=== PATIENT | female | born 1950 | race Caucasian/White ===

== ENCOUNTER 2017-07-04 14:22 | Inpatient (IN) | payer MEDICARE ==
[~2017-07-04] VITALS: Ht 157.5 cm; Wt 97.6 kg
[~2017-07-04 14:22] MED LIST: ALPR1TAB7 PO; AMLO5TAB4 PO; CETI10TA86 PO; CLON0.2T PO; CYCL10TA7 PO; DULO60CA44 PO; GLIM4TAB3 PO; HYDR25TA PO; INSU100I3 SQ; INSU100V12 SQ; LABE100T5 PO; TRAM50TA4 PO
[2017-07-04 15:20] LABS: EOSINOPHILS % (AUTO) 1.4 % (0.0-8.0); MEAN CORPUSCULAR HEMOGLOBIN 31.8 pg (27.0-33.0); MEAN CORPUSCULAR HGB CONC 35.4 g/dL (32.0-36.0); MEAN CORPUSCULAR VOLUME 89.7 fL (79-99); MONOCYTES % (AUTO) 4.5 % (3.0-13.0); NEUTROPHILS % (AUTO) 76.1 % (40.0-77.0); PLATELET COUNT (AUTO) 226 K/uL (130-400); RED BLOOD CELL COUNT(AUTO) 5.12 MIL/uL (4.00-5.50); RED CELL DISTRIBUTION WIDTH 13.7 % (11.0-15.5); WHITE BLOOD COUNT (AUTO) 9.2 K/uL (4.8-10.8)
[2017-07-04 15:26] LABS: CREATININE 0.6 mg/dL (0.5-1.5); POTASSIUM 3.7 mmol/L (3.5-5.1)
[2017-07-04 15:29] LABS: INR 0.94 (0.85-1.15); PARTIAL THROMBOPLASTIN TIME 28.6 SEC (26.3-35.5); PROTHROMBIN TIME 9.9 SEC (9.6-11.6)
[2017-07-04 15:31] LABS: ALBUMIN 3.6 g/dL (3.5-5.0); BILIRUBIN,TOTAL 0.4 mg/dL (0.2-1.0); TOTAL PROTEIN, SERUM 8.1 g/dL (6.0-8.3)
[2017-07-04 15:41] LABS: BILIRUBIN,URINE Negative (NEGATIVE); COLOR,URINE Yellow (YELLOW); GLUCOSE, URINE (UA) 500 mg/dL (NEGATIVE); KETONES,URINE Negative (NEGATIVE); LEUKOCYTE ESTERASE ,URINE Negative (NEGATIVE); NITRATE,URINE Negative (NEGATIVE); OCCULT BLOOD,URINE Trace (NEGATIVE); PROTEIN,URINE 300 (NEGATIVE); UROBILINOGEN,URINE 0.2 mg/dL (0.2-1.0)
[2017-07-04 15:42] LABS: APPEARANCE,URINE HAZY (CLEAR)
[2017-07-04 16:05] LABS: BACTERIA,URINE Few /HPF (None Seen); RBC,URINE None Seen /HPF (0-1)
[2017-07-04] MEDS ORDERED: SODIUM CHLORIDE 0.9% 1000ML 1,000 ML IV ONE (16:08)
[2017-07-04] MEDS ORDERED: ONDANSETRON HCL 4 MG/2 ML VIAL ONE ×2 (18:15→22:37)
[2017-07-04] MEDS ORDERED: TRAMADOL HCL 50 MG TABLET ONE (18:16)
[2017-07-04] MEDS ORDERED: LORAZEPAM 1 MG TABLET ONE (18:18)
[2017-07-04] MEDS ORDERED: ASPIRIN 325 MG TABLET ONE (19:31)
[2017-07-04] MEDS ORDERED: NITROGLYCERIN 1GM/1 INCH PACKET TD ONE (19:31)
[2017-07-04 20:17] LABS: CREATINE KINASE MB 3.1 ng/mL (0.5-3.6)
[2017-07-04] MEDS ORDERED: IPRATROPIUM/ALBUTEROL SULFATE 3 ML SOLUTION IH ONE (21:58)
[2017-07-04] MEDS ORDERED: ACETAMINOPHEN 325 MG TAB ONE (22:52)
[2017-07-04] MEDS ORDERED: IOPAMIDOL-370 100 ML VIAL IV ONE (23:07)
[2017-07-04] MEDS ORDERED: IOPAMIDOL-370 75 ML VIAL IV ONE (23:21)
[2017-07-05] VITALS (7 sets, daily range): BP systolic 138–193; BP diastolic 75–97
[2017-07-05] MEDS ORDERED: LACTULOSE 20 GM/30 ML UDCUP PO PRN (00:30)
[2017-07-05] MEDS ORDERED: NITROGLYCERIN 0.4 MG SL TAB SL PRN (00:30)
[2017-07-05] MEDS ORDERED: GUAIFENESIN-DM 200/20 MG 10 ML PO PRN (00:30)
[2017-07-05] MEDS ORDERED: ACETAMINOPHEN 325 MG TAB PO PRN ×2 (00:30)
[2017-07-05] MEDS ORDERED: LABE200T5 PO (01:08)
[2017-07-05] MEDS ORDERED: BACL10TA PO (01:08)
[2017-07-05] MEDS ORDERED: ADV250 IH (01:08)
[2017-07-05] MEDS ORDERED: LEVO500T2 PO (01:08)
[2017-07-05] MEDS ORDERED: MOME17SP10 NS (01:08)
[2017-07-05] MEDS ORDERED: BENZ200C53 PO (01:08)
[2017-07-05] MEDS ORDERED: DICY10CA13 PO (01:08)
[2017-07-05] MEDS ORDERED: AZITHROMYCIN 500MG+NS 250ML IV SCH (02:00)
[2017-07-05] MEDS ORDERED: BENZONATATE 100 MG CAPSULE PO PRN (02:15)
[2017-07-05] MEDS ORDERED: INSULIN GLARGINE 100 UNITS/ML 10 ML VIAL SQ SCH (02:15)
[2017-07-05] MEDS ORDERED: CLONIDINE HCL 0.2 MG TABLET PO PRN (02:15)
[2017-07-05 02:21] LABS: CREATINE KINASE MB 5.5 ng/mL (0.5-3.6); TROPONIN I 0.29 ng/mL (0.00-0.06)
[2017-07-05] MEDS: METOPROLOL TARTRATE 25 MG TAB PO SCH ×2 (02:27→08:58)
[2017-07-05] MEDS: CEFTRIAXONE SODIUM 1 GM IVP SCH (02:27)
[2017-07-05] MEDS: METOCLOPRAMIDE 10 MG TABLET PO SCH ×3 (05:32→21:18)
[2017-07-05 06:24] LABS: MEAN CORPUSCULAR HEMOGLOBIN 30.7 pg (27.0-33.0); MEAN CORPUSCULAR HGB CONC 34.2 g/dL (32.0-36.0); MEAN CORPUSCULAR VOLUME 89.8 fL (79-99); PLATELET COUNT (AUTO) 289 K/uL (130-400); RED BLOOD CELL COUNT(AUTO) 5.23 MIL/uL (4.00-5.50); RED CELL DISTRIBUTION WIDTH 13.5 % (11.0-15.5); WHITE BLOOD COUNT (AUTO) 12.8 K/uL (4.8-10.8)
[2017-07-05 06:39] LABS: ALBUMIN 3.6 g/dL (3.5-5.0); BILIRUBIN,DIRECT 0.1 mg/dL (0.0-0.3); BILIRUBIN,TOTAL 0.5 mg/dL (0.2-1.0); CREATININE 0.8 mg/dL (0.5-1.5); POTASSIUM 3.6 mmol/L (3.5-5.1); TOTAL PROTEIN, SERUM 8.3 g/dL (6.0-8.3)
[2017-07-05] MEDS: IPRATROPIUM/ALBUTEROL SULFATE 3 ML SOLUTION IH SCH ×4 (06:42→23:40)
[2017-07-05] MEDS: LABETALOL HCL 200 MG TABLET PO SCH ×2 (08:57→20:58)
[2017-07-05] MEDS: LEVOFLOXACIN 500 MG TABLET PO SCH (08:57)
[2017-07-05] MEDS: GLIMEPIRIDE 2 MG TABLET PO SCH ×2 (08:57→20:59)
[2017-07-05] MEDS: ASPIRIN 325MG EC TAB 325 MG TABLET.DR PO SCH (08:58)
[2017-07-05] MEDS: TRAMADOL HCL 50 MG TABLET PO SCH ×3 (08:58→20:59)
[2017-07-05] MEDS: FAMOTIDINE 20MG TAB 20 MG TAB PO SCH ×2 (08:58→20:58)
[2017-07-05] MEDS: DICYCLOMINE HCL 20 MG TAB PO SCH ×2 (08:58→20:59)
[2017-07-05] MEDS: FLUTICASONE/VILANTEROL 1 EACH AER.POW.BA IH SCH ×2 (08:59→21:00)
[2017-07-05] MEDS: MOMETASONE FUROATE PUMP NS SCH ×2 (08:59→21:00)
[2017-07-05] MEDS: ONDANSETRON HCL MDV 20ML 2 MG/ML VIAL IVP PRN (12:00)
[2017-07-05] MEDS: INSULIN HUMULIN R 100 UNIT/ML 3ML SQ SCH ×2 (16:24→21:06)
[2017-07-05] MEDS: BACLOFEN 10 MG TABLET PO SCH (20:59)
[2017-07-05] MEDS: AMLODIPINE BESYLATE 5 MG TAB PO SCH (20:59)
[2017-07-06] MEDS: CEFTRIAXONE SODIUM 1 GM IVP SCH (01:07)
[2017-07-06] MEDS: ONDANSETRON HCL MDV 20ML 2 MG/ML VIAL IVP PRN ×5 (02:50→23:48)
[2017-07-06 03:16] VITALS: BP 162/75
[2017-07-06 05:24] LABS: HEMATOCRIT 45.7 % (36-48); MEAN CORPUSCULAR HEMOGLOBIN 31.2 pg (27.0-33.0); MEAN CORPUSCULAR HGB CONC 34.6 g/dL (32.0-36.0); MEAN CORPUSCULAR VOLUME 90.2 fL (79-99); PLATELET COUNT (AUTO) 257 K/uL (130-400); RED BLOOD CELL COUNT(AUTO) 5.06 MIL/uL (4.00-5.50); RED CELL DISTRIBUTION WIDTH 13.7 % (11.0-15.5); WHITE BLOOD COUNT (AUTO) 9.5 K/uL (4.8-10.8)
[2017-07-06 05:33] LABS: CREATININE 0.8 mg/dL (0.5-1.5)
[2017-07-06 05:49] LABS: B-TYPE NATRIURETIC PEPTIDE 90 pg/mL (0-100)
[2017-07-06] MEDS: METOCLOPRAMIDE 10 MG TABLET PO SCH (06:10)
[2017-07-06] MEDS: INSULIN HUMULIN R 100 UNIT/ML 3ML SQ SCH ×4 (06:15→23:53)
[2017-07-06] MEDS: IPRATROPIUM/ALBUTEROL SULFATE 3 ML SOLUTION IH SCH ×3 (06:33→18:50)
[2017-07-06 07:50] VITALS: BP 180/89
[2017-07-06] MEDS: LABETALOL HCL 200 MG TABLET PO SCH ×2 (07:50→21:43)
[2017-07-06] MEDS: FAMOTIDINE 20MG TAB 20 MG TAB PO SCH ×2 (07:50→23:47)
[2017-07-06] MEDS: ASPIRIN 325MG EC TAB 325 MG TABLET.DR PO SCH (07:50)
[2017-07-06] MEDS: DICYCLOMINE HCL 20 MG TAB PO SCH ×2 (07:50→21:43)
[2017-07-06] MEDS: LEVOFLOXACIN 500 MG TABLET PO SCH (07:50)
[2017-07-06] MEDS: GLIMEPIRIDE 2 MG TABLET PO SCH ×2 (07:51→21:00)
[2017-07-06] MEDS: TRAMADOL HCL 50 MG TABLET PO SCH ×3 (08:26→23:47)
[2017-07-06] MEDS: MOMETASONE FUROATE PUMP NS SCH ×2 (09:00→21:00)
[2017-07-06] MEDS: FLUTICASONE/VILANTEROL 1 EACH AER.POW.BA IH SCH ×2 (09:00→21:00)
[2017-07-06] MEDS ORDERED: PROMETHAZINE HCL 25 MG/ML 1ML AMPULE IM PRN (09:30)
[2017-07-06] MEDS ORDERED: DIATR MEGLU/DIATRIZOATE SODIUM 30 ML BOTTLE ONE (10:34)
[2017-07-06 11:14] VITALS: BP 159/83
[2017-07-06 16:15] VITALS: BP 180/84
[2017-07-06 19:00] VITALS: BP 170/95
[2017-07-06] MEDS: AMLODIPINE BESYLATE 5 MG TAB PO SCH (21:43)
[2017-07-06] MEDS: BACLOFEN 10 MG TABLET PO SCH (21:43)
[2017-07-06 23:00] VITALS: BP 144/65
[2017-07-07] MEDS: IPRATROPIUM/ALBUTEROL SULFATE 3 ML SOLUTION IH SCH ×3 (00:01→11:21)
[2017-07-07] MEDS: CEFTRIAXONE SODIUM 1 GM IVP SCH (00:43)
[2017-07-07 03:00] VITALS: BP 145/75
[2017-07-07] MEDS: INSULIN HUMULIN R 100 UNIT/ML 3ML SQ SCH ×2 (05:45→11:37)
[2017-07-07 07:00] VITALS: BP 144/81
[2017-07-07] MEDS ORDERED: ASPI-1197 PO (09:30)
[2017-07-07] MEDS: LEVOFLOXACIN 500 MG TABLET PO SCH (09:46)
[2017-07-07] MEDS: TRAMADOL HCL 50 MG TABLET PO SCH (09:47)
[2017-07-07] MEDS: ASPIRIN 325MG EC TAB 325 MG TABLET.DR PO SCH (09:47)
[2017-07-07] MEDS: GLIMEPIRIDE 2 MG TABLET PO SCH (09:47)
[2017-07-07] MEDS: FAMOTIDINE 20MG TAB 20 MG TAB PO SCH (09:47)
[2017-07-07] MEDS: DICYCLOMINE HCL 20 MG TAB PO SCH (09:47)
[2017-07-07] MEDS: LABETALOL HCL 200 MG TABLET PO SCH (09:47)
[2017-07-07 11:00] VITALS: BP 138/78
== END 2017-07-07 12:30 | disposition home or self-care (01) | DRG 74 ==
LOC: EDH 14:22 → OBSVTOIN 20:57 → EDHIP 20:57 → 2AH 22:19
PROVIDERS: ADMIT Family Medicine; ATTEND Family Medicine
DX: E11.43 Type 2 diabetes mellitus with diabetic autonomic (poly)neuropathy (principal); J84.10 Pulmonary fibrosis, unspecified; E11.65 Type 2 diabetes mellitus with hyperglycemia; J20.9 Acute bronchitis, unspecified; K31.84 Gastroparesis; E78.5 Hyperlipidemia, unspecified; I10 Essential (primary) hypertension; M19.90 Unspecified osteoarthritis, unspecified site; G89.29 Other chronic pain; F41.9 Anxiety disorder, unspecified; K80.20 Calculus of gallbladder without cholecystitis without obstruction; Z87.891 Personal history of nicotine dependence; Z86.73 Personal history of transient ischemic attack (TIA), and cerebral infarction without residual deficits; Z83.3 Family history of diabetes mellitus; Z82.49 Family history of ischemic heart disease and other diseases of the circulatory system
CPT/HCPCS: 36415; 71045; 71275; 74018; 74176; 76700; 80048; 80053; 80076; 81001; 82550; 82553; 82948; 83735; 83874; 83880; 84484; 85025; 85027; 85378; 85610; 85730; 87804; 93005; 93306; 94640; 94664; 97039; A4218; J0456; J0696; J1815; J2405; J2550; J7030; Q9963; Q9967

== ENCOUNTER 2018-12-06 22:54 | Inpatient (IN) | payer MEDICARE ==
[~2018-12-06] VITALS: Ht 157.5 cm; Wt 101.2 kg
[~2018-12-06 22:54] MED LIST changes: +ADV250 IH; -ALPR1TAB7 PO; +ASPI-1197 PO; +BACL10TA PO; +BENZ200C53 PO; -CETI10TA86 PO; -CYCL10TA7 PO; +DICY10CA13 PO; -DULO60CA44 PO; -GLIM4TAB3 PO; +GLIM4TAB5 PO; -HYDR25TA PO; -LABE100T5 PO; +LABE200T5 PO; +LEVO500T2 PO; +MOME17SP10 NS
[2018-12-06 23:24] LABS: BASOPHILS % (AUTO) 0.7 % (0.0-5.0); EOSINOPHILS % (AUTO) 1.7 % (0.0-8.0); HEMATOCRIT 45.8 % (36-48); MEAN CORPUSCULAR HEMOGLOBIN 32.8 pg (27.0-33.0); MEAN CORPUSCULAR HGB CONC 35.3 g/dL (32.0-36.0); MEAN CORPUSCULAR VOLUME 92.7 fL (79-99); MONOCYTES % (AUTO) 6.5 % (3.0-13.0); NEUTROPHILS % (AUTO) 74.1 % (40.0-77.0); PLATELET COUNT (AUTO) 180 K/uL (130-400); RED BLOOD CELL COUNT(AUTO) 4.94 MIL/uL (4.00-5.50); RED CELL DISTRIBUTION WIDTH 14.9 % (11.0-15.5)
[2018-12-06 23:31] LABS: POTASSIUM 3.5 mmol/L (3.5-5.1)
[2018-12-06 23:35] LABS: ALBUMIN 3.7 g/dL (3.5-5.0); BILIRUBIN,TOTAL 0.5 mg/dL (0.2-1.0); TOTAL PROTEIN, SERUM 7.8 g/dL (6.0-8.3)
[2018-12-07] VITALS (9 sets, daily range): BP systolic 122–182; BP diastolic 64–98
[2018-12-07] MEDS ORDERED: ENOXAPARIN SODIUM 100 MG/1 ML SQ ONE (00:37)
[2018-12-07] MEDS ORDERED: NITROGLYCERIN 0.4 MG SL TAB SL PRN (01:00)
[2018-12-07] MEDS ORDERED: ACETAMINOPHEN 325 MG TAB PO PRN ×2 (01:00)
[2018-12-07] MEDS ORDERED: LACTULOSE 20 GM/30 ML UDCUP PO PRN (01:00)
[2018-12-07 01:29] LABS: CHOLESTEROL 145 mg/dL (<200); HDL CHOLESTEROL 117 mg/dL (35-85); LDL DIRECT 73 mg/dL (0-99); TRIGLYCERIDES 91 mg/dL (30-200)
[2018-12-07] MEDS ORDERED: INSULIN HUMULIN R 100 UNIT/ML 3ML ONE (01:29)
[2018-12-07] MEDS ORDERED: ASPIRIN 325 MG TABLET ONE (01:57)
--- NOTE | 2018-12-07 02:10 | NUR ---
ADMIT PT ADMITTED TO ROOM 415, AAOX3, COMPLAINTS OF GENERALIZED PAINS. PT CLAIMS OF NERVE PAINS SINCE HAVING SHINGLES IN April,. ADMISSION CARE DONE. PLACED IN BED COMFORTABLY. TELE MONITOR APPLIED WITH NSR, HR=64. SCD'S APPLIED TO BLE. ADMISSION DATA BASE COMPLETED. SALINE LOCK FLUSHED, PATENT. MEDICATED WITH TYLENOL FOR PAINS. UPDATED HOME MEDICATION LIST. IN FOR MORE CARE AND MANAGEMENT. Addendum: 12/07/18 at 0307 by EMILIO GOMES RN RN Amended: Links added.
[2018-12-07] MEDS ORDERED: METO25TA6 PO (02:44)
[2018-12-07] MEDS ORDERED: TICA90TA PO (02:44)
[2018-12-07] MEDS ORDERED: LISI-613 PO (02:44)
[2018-12-07] MEDS ORDERED: AMLO5TAB9 PO (02:44)
[2018-12-07] MEDS ORDERED: [UNRECOGNIZED DRUG - CODE] PO (02:44)
[2018-12-07] MEDS ORDERED: FURO40TA5 PO (02:44)
[2018-12-07] MEDS ORDERED: CLON0.2T PO (02:44)
[2018-12-07] MEDS ORDERED: ATOR-2 PO (02:44)
[2018-12-07] MEDS: HYDRALAZINE HCL 20 MG/ML VIAL IV PRN ×2 (04:26→22:30)
--- NOTE | 2018-12-07 04:26 | NUR ---
BP PT'S BP STILL KFDEUMCT=063/71, HR=62. DENIES ANY DISCOMFORT AT THIS TIME. MEDICATED WITH HYDRALAZINE IV. KEPT RESTED AND COMFORTABLE. WILL RE-ASSESS PT.
[2018-12-07] MEDS: INSULIN HUMULIN R 100 UNIT/ML 3ML SQ SCH ×4 (06:08→20:22)
--- NOTE | 2018-12-07 06:08 | NUR ---
MEDS AWAKENED PT FOR DUE INSULIN DOSE, TOLERATED WELL. ENCOURAGED TO GO BACK TO SLEEP. FOR MORE CARE.
[2018-12-07] MEDS: FAMOTIDINE 20MG TAB 20 MG TAB PO SCH (07:56)
[2018-12-07] MEDS: ASPIRIN 81 MG EC TAB PO SCH (07:56)
[2018-12-07] MEDS: FUROSEMIDE 40 MG TABLET PO SCH (07:57)
[2018-12-07] MEDS: METOPROLOL TARTRATE 25 MG TAB PO SCH ×4 (07:57→20:22)
[2018-12-07] MEDS: ONDANSETRON HCL 4 MG/2 ML VIAL IV PRN (07:58)
[2018-12-07] MEDS: TICAGRELOR 90 MG TABLET PO SCH ×2 (07:58→18:39)
[2018-12-07] MEDS: INSULIN LISPRO 100 UNIT/ML 3ML SQ SCH ×3 (08:07→18:44)
[2018-12-07] MEDS: ENOXAPARIN SODIUM 40 MG/0.4 ML SYRINGE SQ SCH (08:08)
[2018-12-07] MEDS: MORPHINE SULFATE 2 MG/ML 1ML SYG IV PRN ×2 (08:11→20:16)
[2018-12-07] MEDS ORDERED: LISINOPRIL 20 MG TABLET PO SCH (09:00)
[2018-12-07] MEDS ORDERED: CLONIDINE HCL 0.2 MG TABLET PO SCH (09:00)
[2018-12-07] MEDS ORDERED: FLU VACC QS2019-20 36MOS UP/PF 60 MCG/0.5 ML ML IM ONE (09:00)
[2018-12-07] MEDS ORDERED: AMLODIPINE BESYLATE 5 MG TAB PO SCH (09:00)
[2018-12-07 11:04] LABS: ALBUMIN 3.5 g/dL (3.5-5.0); BILIRUBIN,TOTAL 0.6 mg/dL (0.2-1.0); CREATININE 0.9 mg/dL (0.5-1.5); POTASSIUM 3.4 mmol/L (3.5-5.1); TOTAL PROTEIN, SERUM 7.6 g/dL (6.0-8.3)
--- NOTE | 2018-12-07 14:37 | NUR ---
DCP CM met with pt discussed dc plans. Pt is independent prior to admission, lives at home w/daughter, son, and grandchildren. Pt has a rollator walker and cane. Denies any other equipments/services. Feels safe to go back home, children able to assist with transportation and needs as necessary. DC plan to home once stable. CM to cont to follow up. Addendum: 12/07/18 at 1438 by TED BOSCH LVN CM Amended: Links added.
[2018-12-07] MEDS: ATORVASTATIN CALCIUM 40 MG TABLET PO SCH (20:15)
[2018-12-07] MEDS: INSULIN GLARGINE 100 UNITS/ML 10 ML VIAL SQ SCH (20:22)
--- NOTE | 2018-12-07 20:22 | NUR ---
MEDS PT'S BP ELEVATED AT 182/70, HR=63. PT COMPLAINTS OF GENERALIZED PAINS. DUE MEDS ADMINISTERED, MORPHINE IV GIVEN FOR PAINS. KEPT RESTED AND COMFORTABLE IN BED. CALL LIGHT WITHIN REACH. WILL RE-ASSESS PT. Addendum: 12/07/18 at 2338 by EMILIO GOMES RN RN Amended: Links added.
[2018-12-07] MEDS ORDERED: ATORVASTATIN CALCIUM 20 MG TABLET PO SCH (21:00)
--- NOTE | 2018-12-07 22:30 | NUR ---
RE-CHECK PT'S BP RE-QCQFDHV=217/78, HR=68. MEDICATED WITH HYDRALAZINE IV. KEPT RESTED AND COMFORTABLE IN BED. WILL RE-ASSESS PT.
--- NOTE | 2018-12-08 01:15 | NUR ---
RECORDS OBTAINED OPERATIVE RECORDS RE[place] BY DR ARRIAZA [place] [facility]. PLACED IN CHART.
--- NOTE | 2018-12-08 02:00 | NUR ---
ROUNDS PT RESTING WELL, FAIRLY ASLEEP, NO DISTRESS NOTED. KEPT UNDISTURBED FOR NOW. WILL MONITOR PT.
[2018-12-08 03:15] VITALS: BP 140/69
--- NOTE | 2018-12-08 05:00 | NUR ---
DRAW PT WAS REFUSING FLOOR CASHIER TO DRAW BLOOD UNTIL VP OF MARKETING EXPLAINED THAT MD HAD ORDERED LABS FOR TODAY AND WILL NOT BE DRAWN IF PT REFUSES AND WILL SIGN REFUSAL FORM. PT AGREED FOR BLOOD DRAW AND FLOOR CASHIER IN TO DO SO.
[2018-12-08 05:36] LABS: BASOPHILS % (AUTO) 0.8 % (0.0-5.0); EOSINOPHILS % (AUTO) 0.8 % (0.0-8.0); HEMATOCRIT 49.4 % (36-48); LYMPHOCYTES % (AUTO) 17.9 % (21.0-51.0); MEAN CORPUSCULAR HEMOGLOBIN 32.4 pg (27.0-33.0); MEAN CORPUSCULAR HGB CONC 34.9 g/dL (32.0-36.0); MEAN CORPUSCULAR VOLUME 92.9 fL (79-99); MONOCYTES % (AUTO) 8.1 % (3.0-13.0); NEUTROPHILS % (AUTO) 72.4 % (40.0-77.0); PLATELET COUNT (AUTO) 227 K/uL (130-400); RED BLOOD CELL COUNT(AUTO) 5.31 MIL/uL (4.00-5.50); WHITE BLOOD COUNT (AUTO) 10.5 K/uL (4.8-10.8)
[2018-12-08 05:51] LABS: CREATININE 0.9 mg/dL (0.5-1.5); POTASSIUM 3.4 mmol/L (3.5-5.1)
--- NOTE | 2018-12-08 06:10 | NUR ---
[facility], IN TO SEE PT. NEW ORDERS GIVEN, PLEASE REFER TO CPOE.
[2018-12-08] MEDS: INSULIN HUMULIN R 100 UNIT/ML 3ML SQ SCH ×4 (06:33→20:55)
--- NOTE | 2018-12-08 06:36 | NUR ---
US SIZING MACHINE TENDER IN ROOM TO DO RENAL SONOGRAM.
[2018-12-08 08:00] VITALS: BP 168/94
[2018-12-08] MEDS ORDERED: LISINOPRIL 20 MG TABLET ONE (08:48)
[2018-12-08] MEDS: ASPIRIN 81 MG EC TAB PO SCH (08:54)
[2018-12-08] MEDS: ENOXAPARIN SODIUM 40 MG/0.4 ML SYRINGE SQ SCH (08:54)
[2018-12-08] MEDS: TICAGRELOR 90 MG TABLET PO SCH ×2 (08:55→18:04)
[2018-12-08] MEDS: AMLODIPINE BESYLATE 5 MG TAB PO SCH (08:55)
[2018-12-08] MEDS: FAMOTIDINE 20MG TAB 20 MG TAB PO SCH (08:55)
[2018-12-08] MEDS: FUROSEMIDE 40 MG TABLET PO SCH (08:55)
[2018-12-08] MEDS: LISINOPRIL 40 MG TABLET PO SCH (08:56)
[2018-12-08] MEDS: POTASSIUM CHLORIDE 20 MEQ ERTAB PO SCH (08:56)
[2018-12-08] MEDS: METOPROLOL TARTRATE 25 MG TAB PO SCH ×3 (08:56→20:53)
[2018-12-08] MEDS: MORPHINE SULFATE 2 MG/ML 1ML SYG IV PRN ×2 (08:57→13:23)
[2018-12-08] MEDS: INSULIN LISPRO 100 UNIT/ML 3ML SQ SCH ×3 (08:58→17:00)
[2018-12-08] MEDS: ONDANSETRON HCL 4 MG/2 ML VIAL IV PRN (11:06)
[2018-12-08] MEDS: HYDRALAZINE HCL 20 MG/ML VIAL IV PRN (11:06)
[2018-12-08 11:30] VITALS: BP 201/98
--- NOTE | 2018-12-08 14:50 | NUR ---
RD NOTIFICATION Dx: Elevated Troponin. Hx: HTN, DM, CVA, CAD, CHF, OBESITY. Diet: Heart Healthy. Po intake 75% and has good appetite as per pt and family. Pt currently experiencing emesis and nausea. Pt unable to have a BM X3 days now and stated she has a history of constipation. Pt says she loves sweets and is hard to avoid intake. RD encouraged pt to eat sweets in moderation and make small changes in her diet to gain better control of BG levels. RD provided DM and Heart Healthy diet and nutrition education. Pt and family asked questions, RD answered and family verbalized understanding. Education materials provided. RD recommends continue current diet, add 60gmCCD to diet order. RD provided DM and Heart Healthy diet and nutrition education. Materials provided. RD will follow up and monitor as needed. Kaley Duncan MS, RDN Addendum: 12/08/18 at [address] RD Amended: Links added.
--- NOTE | 2018-12-08 14:51 | NUR ---
DIET EDUCATION Pt says she loves sweets and is hard to avoid intake. NOEMÍ encouraged pt to eat sweets in moderation and make small changes in her diet to gain better control of BG levels. NOEMÍ provided DM and Heart Healthy diet and nutrition education. Pt and family asked questions, RD answered and family verbalized understanding. Education materials provided. Addendum: 12/08/18 at [address] RD Amended: Links added.
[2018-12-08 15:35] VITALS: BP 130/59
[2018-12-08 16:00] VITALS: BP 150/72
[2018-12-08 19:00] VITALS: BP 102/42
[2018-12-08] MEDS: ATORVASTATIN CALCIUM 40 MG TABLET PO SCH (20:53)
[2018-12-08] MEDS: INSULIN GLARGINE 100 UNITS/ML 10 ML VIAL SQ SCH (20:55)
--- NOTE | 2018-12-08 20:55 | NUR ---
MEDS SHIFT ASSESSMENT DONE, PLEASE REFER TO CHART. DUE MEDS ADMINISTERED, TOLERATED WELL. KEPT RESTED AND COMFORTABLE. CALL LIGHT WITHIN REACH. WILL MONITOR PT. Addendum: 12/08/18 at 2258 by EMILIO GOMES RN RN Amended: Links added.
[2018-12-09] VITALS: BP 146/61
--- NOTE | 2018-12-09 00:30 | NUR ---
MOVED PT COMPLAINTS OF ROOM BEING VERY HOT. TRIED TO LOWER DOWN AC BUT STILL WARM. MOVED PT TO ROOM 413. KEPT RESTED AND COMFORTABLE. CALL LIGHT WITHIN REACH. WILL MONITOR PT.
--- NOTE | 2018-12-09 01:34 | NUR ---
ROUNDS PT CLAIMS ROOM TEMPERATURE IS COOL AND THAT IS HOW SHE WANTS IT. DENIES ANY CONCERNS AT THIS TIME. ENCOURAGED TO GO BACK TO SLEEP. WILL CONTINUE TO MONITOR.
[2018-12-09 04:00] VITALS: BP 106/52
--- NOTE | 2018-12-09 05:35 | NUR ---
ROUNDS PT RESTING WELL, NO CONCERNS VERBALIZED. KEPT COMFORTABLE. FOR MORE CAFE.
[2018-12-09] MEDS: INSULIN HUMULIN R 100 UNIT/ML 3ML SQ SCH ×2 (06:33→11:30)
[2018-12-09 07:30] VITALS: BP 128/93
[2018-12-09] MEDS: INSULIN LISPRO 100 UNIT/ML 3ML SQ SCH (08:00)
[2018-12-09] MEDS: ENOXAPARIN SODIUM 40 MG/0.4 ML SYRINGE SQ SCH (09:00)
[2018-12-09] MEDS ORDERED: FLU VACC QS2019-20 36MOS UP/PF 60 MCG/0.5 ML ML IM ONE (11:00)
[2018-12-09] MEDS: LISINOPRIL 40 MG TABLET PO SCH (11:15)
[2018-12-09] MEDS: TICAGRELOR 90 MG TABLET PO SCH (11:15)
[2018-12-09] MEDS: FAMOTIDINE 20MG TAB 20 MG TAB PO SCH (11:15)
[2018-12-09] MEDS: ASPIRIN 81 MG EC TAB PO SCH (11:15)
[2018-12-09] MEDS: AMLODIPINE BESYLATE 5 MG TAB PO SCH (11:15)
[2018-12-09] MEDS: METOPROLOL TARTRATE 25 MG TAB PO SCH (11:16)
[2018-12-09] MEDS: FUROSEMIDE 40 MG TABLET PO SCH (11:16)
[2018-12-09] MEDS: POTASSIUM CHLORIDE 20 MEQ ERTAB PO SCH (11:18)
[2018-12-09] MEDS ORDERED: AMLO10TA7 PO (13:02)
[2018-12-09] MEDS ORDERED: POTA-79 PO (13:03)
[2018-12-09] MEDS ORDERED: LISI40TA4 PO (13:03)
== END 2018-12-09 13:15 | disposition home or self-care (01) | DRG 292 ==
LOC: EDH 22:54 → EDHIP 12-07 00:51 → OBSVTOIN 12-07 00:51 → 4CH 12-07 01:15
PROVIDERS: ADMIT Hospitalist; ATTEND Hospitalist
DX: I11.0 Hypertensive heart disease with heart failure (principal); Z68.41 Body mass index [BMI] 40.0-44.9, adult; I50.32 Chronic diastolic (congestive) heart failure; E11.9 Type 2 diabetes mellitus without complications; E66.9 Obesity, unspecified; E78.5 Hyperlipidemia, unspecified; I25.10 Atherosclerotic heart disease of native coronary artery without angina pectoris; N64.4 Mastodynia; Z80.3 Family history of malignant neoplasm of breast; Z80.6 Family history of leukemia; Z80.8 Family history of malignant neoplasm of other organs or systems; Z86.73 Personal history of transient ischemic attack (TIA), and cerebral infarction without residual deficits; Z91.19 Patient's noncompliance with other medical treatment and regimen; Z95.1 Presence of aortocoronary bypass graft; Z98.891 History of uterine scar from previous surgery; Z23 Encounter for immunization; F41.9 Anxiety disorder, unspecified; R07.9 Chest pain, unspecified
CPT/HCPCS: 36415; 71045; 76770; 80048; 80053; 80061; 82550; 82948; 83036; 83880; 84484; 85025; 93005; 93306; 93975; 99291; G0378; J0360; J1650; J1815; J2405; Q2035

== ENCOUNTER 2021-06-10 23:26 | Emergency (ER) | payer MEDICARE ==
[~2021-06-10] VITALS: Ht 157.5 cm; Wt 111.1 kg
[~2021-06-10 23:26] MED LIST changes: -ADV250 IH; +AMLO-258 PO; -AMLO5TAB4 PO; +ATOR-2 PO; -BACL10TA PO; -BENZ200C53 PO; -DICY10CA13 PO; +FURO40TA5 PO; -GLIM4TAB5 PO; -LABE200T5 PO; -LEVO500T2 PO; +LISI40TA9 PO; +METO25TA6 PO; -MOME17SP10 NS; +POTA-79 PO; +TICA90TA PO; -TRAM50TA4 PO; +[UNRECOGNIZED DRUG - CODE] PO
[2021-06-11 00:44] LABS: BASOPHILS % (AUTO) 0.4 % (0.0-5.0); EOSINOPHILS % (AUTO) 13.5 % (0.0-8.0); HEMATOCRIT 45.3 % (36-48); LYMPHOCYTES % (AUTO) 16.1 % (21.0-51.0); MEAN CORPUSCULAR HEMOGLOBIN 31.5 pg (27.0-33.0); MEAN CORPUSCULAR HGB CONC 34.4 g/dL (32.0-36.0); MEAN CORPUSCULAR VOLUME 91.5 fL (79-99); MONOCYTES % (AUTO) 5.2 % (3.0-13.0); PLATELET COUNT (AUTO) 175 K/uL (130-400); RED BLOOD CELL COUNT(AUTO) 4.95 MIL/uL (4.00-5.50); RED CELL DISTRIBUTION WIDTH 13.8 % (11.0-15.5); WHITE BLOOD COUNT (AUTO) 10.2 K/uL (4.8-10.8)
[2021-06-11 00:56] LABS: CREATININE 1.2 mg/dL (0.5-1.5)
[2021-06-11 01:01] LABS: ALBUMIN 3.3 g/dL (3.5-5.0); BILIRUBIN,TOTAL 0.4 mg/dL (0.2-1.0); TOTAL PROTEIN, SERUM 7.4 g/dL (6.0-8.3)
[2021-06-11 01:46] LABS: B-TYPE NATRIURETIC PEPTIDE 60 pg/mL (0-100)
[2021-06-11] MEDS ORDERED: PRED20TA3 PO (02:38)
[2021-06-11] MEDS ORDERED: BUME1TAB6 PO (02:38)
[2021-06-11] MEDS ORDERED: HYDR50SY PO (02:38)
[2021-06-11 03:00] VITALS: BP 136/62
[2021-06-11] MEDS ORDERED: SOLU-MEDROL 125MG VIAL IVP ONE (03:00)
[2021-06-11] MEDS ORDERED: HYDROXYZINE 25 MG TABLET PO ONE (03:00)
== END 2021-06-11 03:20 | disposition home or self-care (01) ==
LOC: EDH 23:26
DX: L53.9 Erythematous condition, unspecified (principal); T49.0X5A Adverse effect of local antifungal, anti-infective and anti-inflammatory drugs, initial encounter; I11.0 Hypertensive heart disease with heart failure; I50.9 Heart failure, unspecified; E11.9 Type 2 diabetes mellitus without complications; E78.00 Pure hypercholesterolemia, unspecified; Z79.82 Long term (current) use of aspirin; Z79.899 Other long term (current) drug therapy; Z79.4 Long term (current) use of insulin; Z79.84 Long term (current) use of oral hypoglycemic drugs; Z86.73 Personal history of transient ischemic attack (TIA), and cerebral infarction without residual deficits; Z98.890 Other specified postprocedural states; Y92.89 Other specified places as the place of occurrence of the external cause
CPT/HCPCS: 36415; 71045; 80053; 83880; 85025; 96374; 99284; J2930

== ENCOUNTER 2022-06-30 05:26 | Inpatient (IN) | payer MEDICARE ==
[~2022-06-30] VITALS: Ht 157.5 cm; Wt 129.3 kg
[~2022-06-30 05:26] MED LIST changes: -AMLO-258 PO; +APIX5TAB PO; -ASPI-1197 PO; +BUME1TAB7 PO; -CLON0.2T PO; +CLOP-31 PO; +DILT180C63 PO; -FURO40TA5 PO; +GABA-529 PO; +HYDR-3421 PO; -INSU100I3 SQ; -INSU100V12 SQ; +INSU3INS5 SQ; +LISI20TA24 PO; -LISI40TA9 PO; +LORA10TA7 PO; -METO25TA6 PO; +METO50 PO; +MYCO500T5 PO; +NITR0.4T50 SL; +PANT40TA54 PO; -POTA-79 PO; +PRED20TA3 PO; -TICA90TA PO; +TRAM50TA4 PO; +VITAD50000 PO; -[UNRECOGNIZED DRUG - CODE] PO
[2022-06-30 05:53] LABS: APPEARANCE,URINE CLEAR (CLEAR); BILIRUBIN,URINE NEGATIVE (NEGATIVE); COLOR,URINE LIGHT-YELLOW (YELLOW); GLUCOSE, URINE (UA) 150 mg/dL (NEGATIVE); KETONES,URINE NEGATIVE (NEGATIVE); LEUKOCYTE ESTERASE ,URINE 25 Leu/uL (NEGATIVE); NITRATE,URINE NEGATIVE (NEGATIVE); PROTEIN,URINE 100 mg/dL (NEGATIVE); UROBILINOGEN,URINE 6 mg/dL (0.2-1.0)
[2022-06-30 06:00] LABS: BASOPHILS % (AUTO) 0.7 % (0.0-5.0); EOSINOPHILS % (AUTO) 4.7 % (0.0-8.0); HEMATOCRIT 46.6 % (36-48); LYMPHOCYTES % (AUTO) 18.5 % (21.0-51.0); MEAN CORPUSCULAR HEMOGLOBIN 30.2 pg (27.0-33.0); MEAN CORPUSCULAR HGB CONC 32.2 g/dL (32.0-36.0); MEAN CORPUSCULAR VOLUME 93.8 fL (79-99); MONOCYTES % (AUTO) 7.8 % (3.0-13.0); PLATELET COUNT (AUTO) 197 K/uL (130-400); RED BLOOD CELL COUNT(AUTO) 4.97 MIL/uL (4.00-5.50); RED CELL DISTRIBUTION WIDTH 17.2 % (11.0-15.5); WHITE BLOOD COUNT (AUTO) 7.4 K/uL (4.8-10.8)
[2022-06-30] MEDS ORDERED: FUROSEMIDE 40MG VIAL IV ONE (06:00)
[2022-06-30 06:01] LABS: BACTERIA,URINE None Seen /HPF (None Seen); SQUAMOUS EPITHELIAL CELL,UR Rare /HPF (0-2)
[2022-06-30 06:33] LABS: B-TYPE NATRIURETIC PEPTIDE 454 pg/mL (0-100)
[2022-06-30 06:34] LABS: ALBUMIN 2.9 g/dL (3.5-5.0); CREATININE 0.9 mg/dL (0.5-1.5); TOTAL PROTEIN, SERUM 7.3 g/dL (6.0-8.3)
[2022-06-30] MEDS ORDERED: ATOR-2 PO (07:45)
[2022-06-30] MEDS ORDERED: GABA-529 PO (07:45)
[2022-06-30] MEDS ORDERED: HYDROXYZINE 25 MG TABLET PO PRN (08:00)
[2022-06-30] MEDS ORDERED: HYDRALAZINE 20MG/ML VIAL IV PRN (08:00)
[2022-06-30] MEDS ORDERED: NITROGLYCERIN 0.4 MG SL TAB SL PRN (08:00)
[2022-06-30] MEDS ORDERED: ONDANSETRON 4MG INJ IV PRN (08:00)
[2022-06-30] MEDS ORDERED: HEPARIN 5,000 UNIT VIAL SQ SCH (08:00)
[2022-06-30 08:25] LABS: INR 1.08 (0.85-1.15); PROTHROMBIN TIME 11.7 SEC (9.6-11.6)
[2022-06-30 08:27] LABS: PARTIAL THROMBOPLASTIN TIME 28.4 SEC (26.3-35.5)
[2022-06-30] MEDS ORDERED: ZOSYN 3.375GM+NS 50ML 50 ML IVPB SCH (08:30)
[2022-06-30] MEDS: METOPROLOL TARTRATE 50 MG TAB PO SCH ×2 (09:00→20:29)
[2022-06-30] MEDS: LISINOPRIL 20 MG TABLET PO SCH (09:00)
[2022-06-30] MEDS: TRAMADOL HCL 50 MG TABLET PO SCH ×2 (09:00→20:28)
[2022-06-30] MEDS ORDERED: VANCOMYCIN 1G/250ML KIT 250 ML IV SCH (09:00)
[2022-06-30] MEDS: DILTIAZEM 180MG SR CAP PO SCH (09:18)
[2022-06-30] MEDS: FUROSEMIDE 40MG VIAL IVP SCH ×2 (09:18→20:29)
[2022-06-30] MEDS: APIXABAN 5 MG TABLET PO SCH ×2 (09:18→20:31)
[2022-06-30] MEDS: LORATADINE 10 MG TABLET PO SCH (09:19)
[2022-06-30] MEDS: GABAPENTIN 100 MG CAPSULE PO SCH ×2 (09:19→20:28)
[2022-06-30] MEDS: INSULIN HUMULIN R 100 UNIT/ML 3ML SQ SCH ×3 (11:30→21:57)
[2022-06-30] MEDS: ZOSYN 3.375GM+NS 50ML 50 ML IVPB SCH ×2 (14:27→20:28)
[2022-06-30] MEDS: ATORVASTATIN 40 MG TABLET PO SCH (20:28)
[2022-06-30 22:15] VITALS: BP 105/59
[2022-06-30 23:49] VITALS: BP 105/59
[2022-07-01] MEDS: ZOSYN 3.375GM+NS 50ML 50 ML IVPB SCH ×3 (04:00→19:27)
[2022-07-01 04:23] VITALS: BP 106/66
[2022-07-01 04:45] LABS: HEMATOCRIT 44.4 % (36-48); MEAN CORPUSCULAR HEMOGLOBIN 30.4 pg (27.0-33.0); MEAN CORPUSCULAR HGB CONC 31.3 g/dL (32.0-36.0); MEAN CORPUSCULAR VOLUME 97.2 fL (79-99); RED BLOOD CELL COUNT(AUTO) 4.57 MIL/uL (4.00-5.50); RED CELL DISTRIBUTION WIDTH 16.9 % (11.0-15.5); WHITE BLOOD COUNT (AUTO) 7.9 K/uL (4.8-10.8)
[2022-07-01 04:51] LABS: ALBUMIN 2.9 g/dL (3.5-5.0); BILIRUBIN,DIRECT 0.2 mg/dL (0.0-0.3); CREATININE 1.2 mg/dL (0.5-1.5); POTASSIUM 3.6 mmol/L (3.5-5.1); TOTAL PROTEIN, SERUM 6.9 g/dL (6.0-8.3)
[2022-07-01] MEDS: INSULIN HUMULIN R 100 UNIT/ML 3ML SQ SCH ×4 (05:28→19:35)
[2022-07-01 08:00] VITALS: BP 113/67
[2022-07-01] MEDS: METOPROLOL TARTRATE 50 MG TAB PO SCH ×2 (08:10→19:27)
[2022-07-01] MEDS: APIXABAN 5 MG TABLET PO SCH ×2 (08:10→19:27)
[2022-07-01] MEDS: FUROSEMIDE 40MG VIAL IVP SCH ×2 (08:10→19:28)
[2022-07-01] MEDS: TRAMADOL HCL 50 MG TABLET PO SCH (08:11)
[2022-07-01] MEDS: LORATADINE 10 MG TABLET PO SCH (08:11)
[2022-07-01] MEDS: GABAPENTIN 100 MG CAPSULE PO SCH ×2 (08:11→19:27)
[2022-07-01] MEDS: DILTIAZEM 180MG SR CAP PO SCH (08:12)
[2022-07-01] MEDS: LISINOPRIL 20 MG TABLET PO SCH (09:00)
[2022-07-01 12:00] VITALS: BP 107/67
[2022-07-01] MEDS: TRAMADOL HCL 50 MG TABLET PO PRN (15:02)
[2022-07-01 16:00] VITALS: BP 106/64
[2022-07-01 19:00] VITALS: BP 103/60
[2022-07-01] MEDS: HONEY 1 APPL/ML TUBE TP SCH (19:26)
[2022-07-01] MEDS: ATORVASTATIN 40 MG TABLET PO SCH (19:27)
[2022-07-02] VITALS: BP 97/57
[2022-07-02 04:00] VITALS: BP 124/72
[2022-07-02 05:09] LABS: BASOPHILS % (AUTO) 0.4 % (0.0-5.0); EOSINOPHILS % (AUTO) 10.7 % (0.0-8.0); HEMATOCRIT 45.6 % (36-48); LYMPHOCYTES % (AUTO) 12.9 % (21.0-51.0); MEAN CORPUSCULAR HEMOGLOBIN 30.3 pg (27.0-33.0); MEAN CORPUSCULAR HGB CONC 31.4 g/dL (32.0-36.0); MEAN CORPUSCULAR VOLUME 96.6 fL (79-99); MONOCYTES % (AUTO) 6.2 % (3.0-13.0); NEUTROPHILS % (AUTO) 69.5 % (40.0-77.0); PLATELET COUNT (AUTO) 177 K/uL (130-400); RED BLOOD CELL COUNT(AUTO) 4.72 MIL/uL (4.00-5.50); RED CELL DISTRIBUTION WIDTH 16.5 % (11.0-15.5); WHITE BLOOD COUNT (AUTO) 6.8 K/uL (4.8-10.8)
[2022-07-02 05:17] LABS: ALBUMIN 2.9 g/dL (3.5-5.0); TOTAL PROTEIN, SERUM 7.1 g/dL (6.0-8.3)
[2022-07-02] MEDS: ZOSYN 3.375GM+NS 50ML 50 ML IVPB SCH ×3 (05:24→21:49)
[2022-07-02] MEDS: INSULIN HUMULIN R 100 UNIT/ML 3ML SQ SCH ×7 (05:55→21:00)
[2022-07-02 07:58] VITALS: BP 135/67
[2022-07-02] MEDS: PANTOPRAZOLE 40 MG/VIAL IVP SCH (09:10)
[2022-07-02] MEDS: DILTIAZEM 180MG SR CAP PO SCH (09:10)
[2022-07-02] MEDS: GABAPENTIN 100 MG CAPSULE PO SCH ×2 (09:10→21:47)
[2022-07-02] MEDS: METOPROLOL TARTRATE 50 MG TAB PO SCH (09:10)
[2022-07-02] MEDS: LORATADINE 10 MG TABLET PO SCH (09:10)
[2022-07-02] MEDS: LISINOPRIL 20 MG TABLET PO SCH (09:11)
[2022-07-02] MEDS: FUROSEMIDE 40MG VIAL IVP SCH ×2 (09:11→21:47)
[2022-07-02] MEDS: APIXABAN 5 MG TABLET PO SCH ×2 (09:11→21:47)
[2022-07-02] MEDS: TRAMADOL HCL 50 MG TABLET PO PRN (09:15)
[2022-07-02] MEDS: HONEY 1 APPL/ML TUBE TP SCH (09:41)
[2022-07-02 10:47] VITALS: BP 136/63
[2022-07-02] MEDS: ZYVOX 600 MG TAB PO SCH (16:00)
[2022-07-02 16:07] VITALS: BP 115/62
[2022-07-02 19:00] VITALS: BP 100/59
[2022-07-02] MEDS ORDERED: INSULIN GLARGINE 100 UNITS/ML 10 ML VIAL SQ SCH (21:00)
[2022-07-02] MEDS ORDERED: INSU3INS5 SQ (21:42)
[2022-07-02] MEDS: ATORVASTATIN 40 MG TABLET PO SCH (21:47)
[2022-07-03] VITALS (7 sets, daily range): BP systolic 96–155; BP diastolic 51–74
[2022-07-03] MEDS: METOPROLOL TARTRATE 50 MG TAB PO SCH ×3 (00:11→21:58)
[2022-07-03] MEDS: ZYVOX 600 MG TAB PO SCH ×2 (02:33→15:47)
[2022-07-03] MEDS: ZOSYN 3.375GM+NS 50ML 50 ML IVPB SCH ×3 (05:57→22:03)
[2022-07-03] MEDS: INSULIN HUMULIN R 100 UNIT/ML 3ML SQ SCH ×4 (06:17→11:30)
[2022-07-03 08:49] LABS: HEMATOCRIT 44.8 % (36-48); MEAN CORPUSCULAR HEMOGLOBIN 30.2 pg (27.0-33.0); MEAN CORPUSCULAR HGB CONC 30.8 g/dL (32.0-36.0); PLATELET COUNT (AUTO) 163 K/uL (130-400); RED BLOOD CELL COUNT(AUTO) 4.57 MIL/uL (4.00-5.50); RED CELL DISTRIBUTION WIDTH 16.4 % (11.0-15.5); WHITE BLOOD COUNT (AUTO) 6.3 K/uL (4.8-10.8)
[2022-07-03 09:00] LABS: POTASSIUM 3.8 mmol/L (3.5-5.1)
[2022-07-03] MEDS: PANTOPRAZOLE 40 MG/VIAL IVP SCH (09:16)
[2022-07-03] MEDS: APIXABAN 5 MG TABLET PO SCH ×2 (09:16→21:58)
[2022-07-03] MEDS: TRAMADOL HCL 50 MG TABLET PO PRN (09:18)
[2022-07-03] MEDS: DILTIAZEM 180MG SR CAP PO SCH (09:18)
[2022-07-03] MEDS: FUROSEMIDE 40 MG TABLET PO SCH (09:19)
[2022-07-03] MEDS: GABAPENTIN 100 MG CAPSULE PO SCH ×2 (09:19→21:58)
[2022-07-03] MEDS: LISINOPRIL 20 MG TABLET PO SCH (09:19)
[2022-07-03] MEDS: LORATADINE 10 MG TABLET PO SCH (09:19)
[2022-07-03 09:24] LABS: B-TYPE NATRIURETIC PEPTIDE 276 pg/mL (0-100)
[2022-07-03] MEDS: HONEY 1 APPL/ML TUBE TP SCH (12:25)
[2022-07-03 15:07] LABS: PHOSPHORUS 2.9 mg/dL (2.5-4.9); THYROID STIMULATING HORMONE 5.09 uIU/mL (0.36-3.74); URIC ACID 4.1 mg/dL (2.6-7.2)
[2022-07-03 19:11] LABS: PROTEIN,URINE RANDOM 46.4 mg/dL (0-11.9)
[2022-07-03] MEDS: ATORVASTATIN 40 MG TABLET PO SCH (21:59)
[2022-07-04] MEDS: ZYVOX 600 MG TAB PO SCH ×2 (02:51→14:59)
[2022-07-04] MEDS: TRAMADOL HCL 50 MG TABLET PO PRN (02:52)
[2022-07-04 03:06] VITALS: BP 113/64
[2022-07-04 04:03] LABS: BASOPHILS % (AUTO) 0.7 % (0.0-5.0); EOSINOPHILS % (AUTO) 8.9 % (0.0-8.0); HEMATOCRIT 43.9 % (36-48); LYMPHOCYTES % (AUTO) 14.6 % (21.0-51.0); MEAN CORPUSCULAR HEMOGLOBIN 30.1 pg (27.0-33.0); MEAN CORPUSCULAR HGB CONC 31.2 g/dL (32.0-36.0); MEAN CORPUSCULAR VOLUME 96.5 fL (79-99); MONOCYTES % (AUTO) 8.4 % (3.0-13.0); NEUTROPHILS % (AUTO) 67.1 % (40.0-77.0); PLATELET COUNT (AUTO) 171 K/uL (130-400); RED BLOOD CELL COUNT(AUTO) 4.55 MIL/uL (4.00-5.50); RED CELL DISTRIBUTION WIDTH 16.3 % (11.0-15.5); WHITE BLOOD COUNT (AUTO) 7.1 K/uL (4.8-10.8)
[2022-07-04 04:21] LABS: ALBUMIN 2.7 g/dL (3.5-5.0); CREATININE 0.8 mg/dL (0.5-1.5); CRP QUANTITATIVE 14.1 mg/L (0.00-9.0); MAGNESIUM 1.9 mg/dL (1.80-2.40); PHOSPHORUS 2.8 mg/dL (2.5-4.9); POTASSIUM 3.5 mmol/L (3.5-5.1); TOTAL PROTEIN, SERUM 6.9 g/dL (6.0-8.3)
[2022-07-04 04:36] LABS: B-TYPE NATRIURETIC PEPTIDE 412 pg/mL (0-100)
[2022-07-04] MEDS: ZOSYN 3.375GM+NS 50ML 50 ML IVPB SCH ×3 (04:40→20:44)
[2022-07-04 05:11] LABS: ERYTHROCYTE SEDIMENTATION RATE 28 MM/HR (0-30)
[2022-07-04] MEDS: MORPHINE 2 MG SYG IVP PRN (06:27)
[2022-07-04] MEDS ORDERED: KCL 20 MEQ ERTAB PO ONE (06:30)
[2022-07-04 08:00] VITALS: BP 114/62
[2022-07-04] MEDS: APIXABAN 5 MG TABLET PO SCH ×2 (09:39→20:44)
[2022-07-04] MEDS: DILTIAZEM 180MG SR CAP PO SCH (09:39)
[2022-07-04] MEDS: Vitamin B Complex/Vit C/Folic Acid PO SCH (09:39)
[2022-07-04] MEDS: GABAPENTIN 100 MG CAPSULE PO SCH ×2 (09:40→20:44)
[2022-07-04] MEDS: LISINOPRIL 20 MG TABLET PO SCH (09:40)
[2022-07-04] MEDS: PANTOPRAZOLE 40 MG/VIAL IVP SCH (09:40)
[2022-07-04] MEDS: FUROSEMIDE 40 MG TABLET PO SCH ×2 (09:40→16:41)
[2022-07-04] MEDS: METOPROLOL TARTRATE 50 MG TAB PO SCH ×2 (09:41→20:44)
[2022-07-04] MEDS: LORATADINE 10 MG TABLET PO SCH (09:42)
[2022-07-04] MEDS: HONEY 1 APPL/ML TUBE TP SCH (09:42)
[2022-07-04] MEDS: INSULIN HUMULIN 70/30 100 UNIT/ML 3ML SQ SCH ×3 (11:30→20:47)
[2022-07-04 12:00] VITALS: BP 111/71
[2022-07-04 16:00] VITALS: BP 117/63
[2022-07-04 19:02] VITALS: BP 109/60
[2022-07-04] MEDS: ATORVASTATIN 40 MG TABLET PO SCH (20:44)
[2022-07-04 23:11] VITALS: BP 106/50
[2022-07-05 03:35] VITALS: BP 110/51
[2022-07-05 04:26] LABS: HEMATOCRIT 44.7 % (36-48); MEAN CORPUSCULAR HEMOGLOBIN 30.4 pg (27.0-33.0); MEAN CORPUSCULAR HGB CONC 31.1 g/dL (32.0-36.0); MEAN CORPUSCULAR VOLUME 97.8 fL (79-99); PLATELET COUNT (AUTO) 167 K/uL (130-400); RED BLOOD CELL COUNT(AUTO) 4.57 MIL/uL (4.00-5.50); RED CELL DISTRIBUTION WIDTH 16.2 % (11.0-15.5); WHITE BLOOD COUNT (AUTO) 5.4 K/uL (4.8-10.8)
[2022-07-05] MEDS: ZYVOX 600 MG TAB PO SCH ×2 (04:30→15:42)
[2022-07-05] MEDS: ZOSYN 3.375GM+NS 50ML 50 ML IVPB SCH ×3 (04:30→22:22)
[2022-07-05 04:43] LABS: ALBUMIN 2.7 g/dL (3.5-5.0); MAGNESIUM 2.1 mg/dL (1.80-2.40); POTASSIUM 4.2 mmol/L (3.5-5.1); TOTAL PROTEIN, SERUM 6.8 g/dL (6.0-8.3)
[2022-07-05 05:57] LABS: BASOPHILS % (MANUAL) 1 % (0-2); EOSINOPHILS % (MANUAL) 9 % (1-6); LYMPHOCYTES % (MANUAL) 14 % (22-44); MONOCYTES % (MANUAL) 3 % (2-9); SEGMENTED NEUTROPHILS % 73 % (40-70)
[2022-07-05 05:58] LABS: MAN.DIFF COMMENT-IMPRESSION MANUAL DIFFERENTIAL; PLATELET MORPHOLOGY COMMENT ADEQUATE
[2022-07-05] MEDS: INSULIN HUMULIN 70/30 100 UNIT/ML 3ML SQ SCH ×3 (07:30→17:27)
[2022-07-05 07:35] VITALS: BP 125/62
[2022-07-05] MEDS: FUROSEMIDE 40 MG TABLET PO SCH ×2 (09:00→17:26)
[2022-07-05] MEDS: LORATADINE 10 MG TABLET PO SCH (10:34)
[2022-07-05] MEDS: SPIRONOLACTONE 25 MG TAB PO SCH (10:35)
[2022-07-05] MEDS: LISINOPRIL 20 MG TABLET PO SCH (10:35)
[2022-07-05] MEDS: DILTIAZEM 180MG SR CAP PO SCH (10:35)
[2022-07-05] MEDS: GABAPENTIN 100 MG CAPSULE PO SCH ×2 (10:36→21:44)
[2022-07-05] MEDS: Vitamin B Complex/Vit C/Folic Acid PO SCH (10:36)
[2022-07-05] MEDS: APIXABAN 5 MG TABLET PO SCH ×2 (10:36→21:45)
[2022-07-05] MEDS: PANTOPRAZOLE 40 MG/VIAL IVP SCH (10:38)
[2022-07-05] MEDS: METOPROLOL TARTRATE 50 MG TAB PO SCH ×2 (10:48→21:45)
[2022-07-05] MEDS: MORPHINE 2 MG SYG IVP PRN (10:48)
[2022-07-05 11:00] VITALS: BP 121/61
[2022-07-05] MEDS: HONEY 1 APPL/ML TUBE TP SCH (12:37)
[2022-07-05 15:05] VITALS: BP 103/49
[2022-07-05 20:00] VITALS: BP 133/73
[2022-07-05] MEDS: ATORVASTATIN 40 MG TABLET PO SCH (21:44)
[2022-07-05] MEDS: ACETAMINOPHEN 325 MG TAB PO PRN (21:49)
[2022-07-05 23:52] VITALS: BP 139/59
[2022-07-06 04:00] VITALS: BP 142/68
[2022-07-06 04:36] LABS: BASOPHILS % (AUTO) 0.4 % (0.0-5.0); EOSINOPHILS % (AUTO) 5.1 % (0.0-8.0); HEMATOCRIT 44.7 % (36-48); LYMPHOCYTES % (AUTO) 12.9 % (21.0-51.0); MEAN CORPUSCULAR HEMOGLOBIN 30.2 pg (27.0-33.0); MEAN CORPUSCULAR HGB CONC 31.8 g/dL (32.0-36.0); MEAN CORPUSCULAR VOLUME 95.1 fL (79-99); NEUTROPHILS % (AUTO) 74.2 % (40.0-77.0); PLATELET COUNT (AUTO) 182 K/uL (130-400); RED CELL DISTRIBUTION WIDTH 15.7 % (11.0-15.5)
[2022-07-06 04:42] LABS: ALBUMIN 2.9 g/dL (3.5-5.0); CREATININE 0.9 mg/dL (0.5-1.5); POTASSIUM 3.4 mmol/L (3.5-5.1); TOTAL PROTEIN, SERUM 7.3 g/dL (6.0-8.3)
[2022-07-06] MEDS: ZYVOX 600 MG TAB PO SCH ×2 (05:17→15:09)
[2022-07-06] MEDS: ZOSYN 3.375GM+NS 50ML 50 ML IVPB SCH ×3 (05:17→22:23)
[2022-07-06] MEDS: ACETAMINOPHEN 325 MG TAB PO PRN ×2 (05:21→19:53)
[2022-07-06] MEDS: INSULIN HUMULIN 70/30 100 UNIT/ML 3ML SQ SCH ×3 (07:24→18:06)
[2022-07-06 07:40] VITALS: BP 122/70
[2022-07-06] MEDS ORDERED: POTASSIUM CHLORIDE 10MEQ SR TAB PO ONE (09:15)
[2022-07-06] MEDS: PANTOPRAZOLE 40 MG/VIAL IVP SCH (09:28)
[2022-07-06] MEDS: Vitamin B Complex/Vit C/Folic Acid PO SCH (09:28)
[2022-07-06] MEDS: FUROSEMIDE 40 MG TABLET PO SCH ×2 (09:28→16:33)
[2022-07-06] MEDS: LISINOPRIL 20 MG TABLET PO SCH (09:29)
[2022-07-06] MEDS: SPIRONOLACTONE 25 MG TAB PO SCH (09:29)
[2022-07-06] MEDS: GABAPENTIN 100 MG CAPSULE PO SCH ×2 (09:29→19:53)
[2022-07-06] MEDS: DILTIAZEM 180MG SR CAP PO SCH (09:29)
[2022-07-06] MEDS: METOPROLOL TARTRATE 50 MG TAB PO SCH ×2 (09:29→19:53)
[2022-07-06] MEDS: APIXABAN 5 MG TABLET PO SCH ×2 (09:29→19:52)
[2022-07-06] MEDS: LORATADINE 10 MG TABLET PO SCH (09:29)
[2022-07-06] MEDS ORDERED: POTASSIUM CHLORIDE 20MEQ/100ML 100 ML IV PRN (09:30)
[2022-07-06] MEDS ORDERED: POTASSIUM CHLORIDE 10% ELIXIR 20 MEQ/15 ML UDCUP PO PRN (09:30)
[2022-07-06] MEDS ORDERED: MAGNESIUM 2GM PREMIX 50ML 50 ML IV PRN (09:30)
[2022-07-06] MEDS: HONEY 1 APPL/ML TUBE TP SCH (09:30)
[2022-07-06] MEDS ORDERED: FUROSEMIDE 40MG VIAL IV ONE (10:30)
[2022-07-06 11:35] VITALS: BP 119/60
[2022-07-06] MEDS: KCL 20 MEQ ERTAB PO PRN ×3 (11:43→16:33)
[2022-07-06 15:05] VITALS: BP 117/56
[2022-07-06] MEDS: ATORVASTATIN 40 MG TABLET PO SCH (19:53)
[2022-07-06 20:31] VITALS: BP 137/53
[2022-07-06] MEDS ORDERED: HYDROCODONE/ACETAMINOPHEN 5/325 MG TAB PO PRN (22:00)
[2022-07-07] VITALS (7 sets, daily range): BP systolic 115–165; BP diastolic 59–76
[2022-07-07] MEDS: ZYVOX 600 MG TAB PO SCH ×2 (04:01→16:34)
[2022-07-07] MEDS: ZOSYN 3.375GM+NS 50ML 50 ML IVPB SCH ×3 (04:01→19:43)
[2022-07-07 04:08] LABS: BASOPHILS % (AUTO) 0.7 % (0.0-5.0); EOSINOPHILS % (AUTO) 6.3 % (0.0-8.0); LYMPHOCYTES % (AUTO) 21.8 % (21.0-51.0); MEAN CORPUSCULAR HEMOGLOBIN 29.9 pg (27.0-33.0); MEAN CORPUSCULAR HGB CONC 31.1 g/dL (32.0-36.0); MEAN CORPUSCULAR VOLUME 96.2 fL (79-99); MONOCYTES % (AUTO) 7.9 % (3.0-13.0); PLATELET COUNT (AUTO) 171 K/uL (130-400); RED BLOOD CELL COUNT(AUTO) 4.78 MIL/uL (4.00-5.50); RED CELL DISTRIBUTION WIDTH 15.9 % (11.0-15.5); WHITE BLOOD COUNT (AUTO) 6.7 K/uL (4.8-10.8)
[2022-07-07 04:20] LABS: ALBUMIN 2.8 g/dL (3.5-5.0); POTASSIUM 3.6 mmol/L (3.5-5.1); TOTAL PROTEIN, SERUM 7.3 g/dL (6.0-8.3)
[2022-07-07 05:52] LABS: B-TYPE NATRIURETIC PEPTIDE 578 pg/mL (0-100)
[2022-07-07] MEDS: INSULIN HUMULIN 70/30 100 UNIT/ML 3ML SQ SCH ×3 (06:41→17:01)
[2022-07-07] MEDS: Vitamin B Complex/Vit C/Folic Acid PO SCH (09:02)
[2022-07-07] MEDS: FUROSEMIDE 40 MG TABLET PO SCH ×2 (09:02→16:34)
[2022-07-07] MEDS: APIXABAN 5 MG TABLET PO SCH ×2 (09:02→19:44)
[2022-07-07] MEDS: LISINOPRIL 20 MG TABLET PO SCH (09:02)
[2022-07-07] MEDS: GABAPENTIN 100 MG CAPSULE PO SCH ×2 (09:02→19:44)
[2022-07-07] MEDS: LORATADINE 10 MG TABLET PO SCH (09:02)
[2022-07-07] MEDS: SPIRONOLACTONE 25 MG TAB PO SCH (09:02)
[2022-07-07] MEDS: METOPROLOL TARTRATE 50 MG TAB PO SCH ×2 (09:03→19:44)
[2022-07-07] MEDS: DILTIAZEM 180MG SR CAP PO SCH (09:03)
[2022-07-07] MEDS: PANTOPRAZOLE 40 MG/VIAL IVP SCH (09:03)
[2022-07-07] MEDS: KCL 20 MEQ ERTAB PO PRN ×2 (16:37→18:49)
[2022-07-07] MEDS: ATORVASTATIN 40 MG TABLET PO SCH (19:44)
[2022-07-07] MEDS: HONEY 1 APPL/ML TUBE TP SCH (19:47)
[2022-07-08] MEDS: ZYVOX 600 MG TAB PO SCH (03:40)
[2022-07-08 04:15] VITALS: BP 124/64
[2022-07-08] MEDS: ZOSYN 3.375GM+NS 50ML 50 ML IVPB SCH ×2 (05:11→12:15)
[2022-07-08] MEDS: INSULIN HUMULIN 70/30 100 UNIT/ML 3ML SQ SCH ×2 (05:23→12:37)
[2022-07-08] MEDS: FUROSEMIDE 40 MG TABLET PO SCH (08:53)
[2022-07-08] MEDS: LORATADINE 10 MG TABLET PO SCH (08:53)
[2022-07-08] MEDS: PANTOPRAZOLE 40 MG/VIAL IVP SCH (08:53)
[2022-07-08] MEDS: Vitamin B Complex/Vit C/Folic Acid PO SCH (08:53)
[2022-07-08] MEDS: SPIRONOLACTONE 25 MG TAB PO SCH (08:53)
[2022-07-08] MEDS: LISINOPRIL 20 MG TABLET PO SCH (08:54)
[2022-07-08] MEDS: GABAPENTIN 100 MG CAPSULE PO SCH (08:54)
[2022-07-08] MEDS: APIXABAN 5 MG TABLET PO SCH (08:54)
[2022-07-08] MEDS: METOPROLOL TARTRATE 50 MG TAB PO SCH (08:54)
[2022-07-08] MEDS: DILTIAZEM 180MG SR CAP PO SCH (08:54)
[2022-07-08] MEDS: HONEY 1 APPL/ML TUBE TP SCH (09:01)
[2022-07-08] MEDS ORDERED: Folic Acid/Vitamin B Comp W-C PO (10:20)
[2022-07-08] MEDS ORDERED: SPIR25TA6 PO (10:20)
[2022-07-08] MEDS ORDERED: FURO40TA7 PO (10:20)
[2022-07-08] MEDS ORDERED: HUM10VIA SQ (10:20)
[2022-07-08 12:00] VITALS: BP 130/66
== END 2022-07-08 14:00 | disposition home or self-care (01) | DRG 291 ==
LOC: EDH 05:26 → EDHIP 07:36 → 4BH 21:12
PROVIDERS: ADMIT Internal Medicine; ATTEND Internal Medicine
DX: I13.0 Hypertensive heart and chronic kidney disease with heart failure and stage 1 through stage 4 chronic kidney disease, or unspecified chronic kidney disease (principal); I50.43 Acute on chronic combined systolic (congestive) and diastolic (congestive) heart failure; J96.21 Acute and chronic respiratory failure with hypoxia; R53.2 Functional quadriplegia; L03.115 Cellulitis of right lower limb; L03.116 Cellulitis of left lower limb; L97.919 Non-pressure chronic ulcer of unspecified part of right lower leg with unspecified severity; Z68.43 Body mass index [BMI] 50.0-59.9, adult; N39.0 Urinary tract infection, site not specified; R65.10 Systemic inflammatory response syndrome (SIRS) of non-infectious origin without acute organ dysfunction; Z20.822 Contact with and (suspected) exposure to COVID-19; E11.22 Type 2 diabetes mellitus with diabetic chronic kidney disease; E66.01 Morbid (severe) obesity due to excess calories; I48.0 Paroxysmal atrial fibrillation; N18.31 Chronic kidney disease, stage 3a; B96.4 Proteus (mirabilis) (morganii) as the cause of diseases classified elsewhere; E78.5 Hyperlipidemia, unspecified; F41.9 Anxiety disorder, unspecified; I25.10 Atherosclerotic heart disease of native coronary artery without angina pectoris; I42.9 Cardiomyopathy, unspecified; Z74.01 Bed confinement status; Z79.01 Long term (current) use of anticoagulants; Z79.899 Other long term (current) drug therapy; Z80.6 Family history of leukemia; Z82.49 Family history of ischemic heart disease and other diseases of the circulatory system; Z83.3 Family history of diabetes mellitus; Z86.73 Personal history of transient ischemic attack (TIA), and cerebral infarction without residual deficits; Z87.891 Personal history of nicotine dependence; Z95.1 Presence of aortocoronary bypass graft; Z99.81 Dependence on supplemental oxygen
CPT/HCPCS: 36415; 71045; 74150; 76700; 80048; 80053; 80076; 81001; 82550; 82570; 82948; 83735; 83874; 83880; 84100; 84145; 84156; 84443; 84484; 84550; 85025; 85027; 85610; 85651; 85730; 86140; 87077; 87088; 87186; 87635; 87804; 93005; 93970; 97039; C9113; C9803; G0378; J1815; J1940; J2270; J2405; J2543; J3370

== ENCOUNTER 2023-09-21 00:33 | Inpatient (IN) | payer MEDICARE ==
[2023-09-21] VITALS (15 sets, daily range): BP systolic 97–155; BP diastolic 47–76; PULSE 67–94; RESP 18–20; O2SAT 93–96
[~2023-09-21] VITALS: Ht 157.5 cm; Wt 116.3 kg
[~2023-09-21 00:33] MED LIST changes: -BUME1TAB7 PO; +CEFD300C3 PO; -CLOP-31 PO; -DILT180C63 PO; +FURO40TA5 PO; -GABA-529 PO; -HYDR-3421 PO; -INSU3INS5 SQ; +METO-391 PO; -METO50 PO; -MYCO500T5 PO; -PANT40TA54 PO; -PRED20TA3 PO; -VITAD50000 PO
[2023-09-21] MEDS: FUROSEMIDE 40MG VIAL IVP ONE (01:05)
[2023-09-21 01:17] LABS: BASOPHILS # (AUTO) 0.04 K/uL (0.00-0.20); BASOPHILS % (AUTO) 0.7 % (0.0-5.0); EOSINOPHILS # (AUTO) 0.07 K/uL (0.00-0.70); EOSINOPHILS % (AUTO) 1.2 % (0.0-8.0); HEMATOCRIT 44.1 % (36-48); IMMATURE GRANULOCYTE ABSOLUTE 0.01 K/uL (0-1); LYMPHOCYTES # (AUTO) 0.8 K/uL (1.0-4.8); LYMPHOCYTES % (AUTO) 13.4 % (21.0-51.0); MEAN CORPUSCULAR HEMOGLOBIN 31.2 pg (27.0-33.0); MEAN CORPUSCULAR HGB CONC 33.3 g/dL (32.0-36.0); MEAN CORPUSCULAR VOLUME 93.6 fL (79-99); MONOCYTES # (AUTO) 0.4 K/uL (0.1-1.0); MONOCYTES % (AUTO) 6.2 % (3.0-13.0); NEUTROPHILS # (AUTO) 4.7 K/uL (1.8-7.7); NEUTROPHILS % (AUTO) 78.3 % (40.0-77.0); PLATELET COUNT (AUTO) 148 K/uL (130-400); RED BLOOD CELL COUNT(AUTO) 4.71 MIL/uL (4.00-5.50); RED CELL DISTRIBUTION WIDTH 16.6 % (11.0-15.5)
[2023-09-21 01:40] LABS: B-TYPE NATRIURETIC PEPTIDE 721 pg/mL (0-100)
[2023-09-21 02:54] LABS: CREATININE 1.1 mg/dL (0.5-1.0); POTASSIUM 4.4 mmol/L (3.5-5.1)
[2023-09-21 02:58] LABS: ALBUMIN 2.4 g/dL (3.5-5.0); TOTAL PROTEIN, SERUM 7.8 g/dL (6.0-8.3)
[2023-09-21] MEDS ORDERED: GUAIFENESIN-DM 200/20 MG 10 ML PO PRN (04:30)
[2023-09-21] MEDS ORDERED: GLUCAGON 1MG KIT 1 MG ML IM PRN (04:30)
[2023-09-21] MEDS ORDERED: DEXTROSE 50%-WATER 50 ML DISP.SYRIN IV PRN (04:30)
[2023-09-21] MEDS ORDERED: acetaMINOPHEN 325 MG TAB PO PRN ×2 (04:30)
[2023-09-21] MEDS ORDERED: POTASSIUM CHLORIDE 20MEQ/100ML 100 ML IV PRN (04:30)
[2023-09-21] MEDS ORDERED: NITROGLYCERIN 0.4 MG SL TAB SL PRN (04:30)
[2023-09-21] MEDS ORDERED: ONDANSETRON 4MG INJ IV PRN (04:30)
[2023-09-21] MEDS ORDERED: POTASSIUM CHLORIDE 10% ELIXIR 20 MEQ/15 ML UDCUP PO PRN (04:30)
[2023-09-21] MEDS: FUROSEMIDE 20MG VIAL IV SCH (04:53)
[2023-09-21] MEDS: HEPARIN 5,000 UNIT VIAL SQ SCH (04:53)
[2023-09-21 05:11] LABS: BASOPHILS # (AUTO) 0.05 K/uL (0.00-0.20); BASOPHILS % (AUTO) 0.8 % (0.0-5.0); EOSINOPHILS # (AUTO) 0.08 K/uL (0.00-0.70); EOSINOPHILS % (AUTO) 1.2 % (0.0-8.0); HEMATOCRIT 43.4 % (36-48); IMMATURE GRANULOCYTE ABSOLUTE 0.01 K/uL (0-1); LYMPHOCYTES # (AUTO) 1.1 K/uL (1.0-4.8); LYMPHOCYTES % (AUTO) 17.2 % (21.0-51.0); MEAN CORPUSCULAR HEMOGLOBIN 31.2 pg (27.0-33.0); MEAN CORPUSCULAR HGB CONC 32.9 g/dL (32.0-36.0); MEAN CORPUSCULAR VOLUME 94.8 fL (79-99); MONOCYTES # (AUTO) 0.6 K/uL (0.1-1.0); MONOCYTES % (AUTO) 8.5 % (3.0-13.0); NEUTROPHILS # (AUTO) 4.7 K/uL (1.8-7.7); NEUTROPHILS % (AUTO) 72.1 % (40.0-77.0); PLATELET COUNT (AUTO) 145 K/uL (130-400); RED BLOOD CELL COUNT(AUTO) 4.58 MIL/uL (4.00-5.50); RED CELL DISTRIBUTION WIDTH 16.6 % (11.0-15.5); WHITE BLOOD COUNT (AUTO) 6.5 K/uL (4.8-10.8)
[2023-09-21 05:31] LABS: ALBUMIN 2.6 g/dL (3.5-5.0); BILIRUBIN,TOTAL 0.9 mg/dL (0.2-1.0); CREATININE 1.1 mg/dL (0.5-1.0); MAGNESIUM 1.9 mg/dL (1.80-2.40); POTASSIUM 4.1 mmol/L (3.5-5.1)
[2023-09-21 05:39] LABS: B-TYPE NATRIURETIC PEPTIDE 724 pg/mL (0-100)
[2023-09-21] MEDS: IpraTROPium/alBUTERol SULFATE 3 ML SOLUTION IH SCH (07:05)
[2023-09-21] MEDS: INSULIN HUMULIN R 100 UNIT/ML 3ML SQ SCH (07:30)
[2023-09-21] MEDS ORDERED: DILT180C77 PO (08:37)
[2023-09-21] MEDS ORDERED: BENZ200C53 PO (08:37)
[2023-09-21] MEDS ORDERED: CLOP75TA32 PO (08:37)
[2023-09-21] MEDS ORDERED: SPIR25TA6 PO (08:37)
[2023-09-21] MEDS ORDERED: INSU3INS5 SQ (08:37)
[2023-09-21] MEDS ORDERED: ERGO500093 PO (08:37)
[2023-09-21] MEDS ORDERED: METO50 PO (08:37)
[2023-09-21] MEDS: FAMOTIDINE 20MG TAB PO SCH (09:00)
[2023-09-21] MEDS: ASPIRIN 81 MG EC TAB PO SCH (09:00)
[2023-09-21 10:39] LABS: ABG BASE EXCESS 2.7 mmol/L (-2.0-3.0); ABG HCO3 26.7 mmol/L (21.0-28.0); ABG OXYGEN SATURATION 90.6 % (95.0-99.0); ABG PCO2 39 mmHg (32-45); DEVICE COMMENT RR LAURA RN; PO2, ARTERIAL BG 56.2 mmHg (83.0-108.0); VENT MODE, BG RA (ROOM AIR)
[2023-09-21] MEDS ORDERED: IOHEXOL-350 75 ML VIAL IV ONE (11:01)
[2023-09-21] MEDS: HYDROCODONE/ACETAMINOPHEN 5/325 MG TAB PO PRN (12:03)
[2023-09-22] VITALS (16 sets, daily range): BP systolic 115–152; BP diastolic 63–90; PULSE 70–99; RESP 18–20; O2SAT 93–100
[2023-09-22 03:28] LABS: BASOPHILS # (AUTO) 0.05 K/uL (0.00-0.20); BASOPHILS % (AUTO) 0.9 % (0.0-5.0); EOSINOPHILS # (AUTO) 0.09 K/uL (0.00-0.70); EOSINOPHILS % (AUTO) 1.7 % (0.0-8.0); HEMATOCRIT 42.3 % (36-48); IMMATURE GRANULOCYTE ABSOLUTE 0.01 K/uL (0-1); LYMPHOCYTES # (AUTO) 0.8 K/uL (1.0-4.8); LYMPHOCYTES % (AUTO) 15.5 % (21.0-51.0); MEAN CORPUSCULAR HEMOGLOBIN 30.6 pg (27.0-33.0); MEAN CORPUSCULAR HGB CONC 32.4 g/dL (32.0-36.0); MEAN CORPUSCULAR VOLUME 94.6 fL (79-99); MONOCYTES # (AUTO) 0.5 K/uL (0.1-1.0); MONOCYTES % (AUTO) 8.9 % (3.0-13.0); NEUTROPHILS # (AUTO) 3.9 K/uL (1.8-7.7); NEUTROPHILS % (AUTO) 72.8 % (40.0-77.0); PLATELET COUNT (AUTO) 121 K/uL (130-400); RED BLOOD CELL COUNT(AUTO) 4.47 MIL/uL (4.00-5.50); RED CELL DISTRIBUTION WIDTH 16.6 % (11.0-15.5); WHITE BLOOD COUNT (AUTO) 5.3 K/uL (4.8-10.8)
[2023-09-22 03:46] LABS: APPEARANCE,URINE CLEAR (CLEAR); BILIRUBIN,URINE NEGATIVE (NEGATIVE); COLOR,URINE YELLOW (YELLOW); GLUCOSE, URINE (UA) 200 mg/dL (NEGATIVE); KETONES,URINE NEGATIVE (NEGATIVE); LEUKOCYTE ESTERASE ,URINE NEGATIVE Leu/uL (NEGATIVE); NITRATE,URINE NEGATIVE (NEGATIVE); OCCULT BLOOD,URINE MODERATE (NEGATIVE); PROTEIN,URINE 50 mg/dL (NEGATIVE); UROBILINOGEN,URINE 6 mg/dL (0.2-1.0)
[2023-09-22 03:49] LABS: BACTERIA,URINE FEW /HPF (None Seen); SQUAMOUS EPITHELIAL CELL,UR FEW /HPF (0-2)
[2023-09-22 03:52] LABS: ALBUMIN 2.3 g/dL (3.5-5.0); BILIRUBIN,TOTAL 0.9 mg/dL (0.2-1.0); CREATININE 1.2 mg/dL (0.5-1.0); MAGNESIUM 1.8 mg/dL (1.80-2.40); POTASSIUM 3.9 mmol/L (3.5-5.1); TOTAL PROTEIN, SERUM 7.1 g/dL (6.0-8.3)
[2023-09-22] MEDS: MAGNESIUM 2GM PREMIX 50ML 50 ML IV PRN (05:22)
[2023-09-22 08:25] LABS: COVID19 (SARS ANTIGEN RAPID) PRESUMPTIVE NEGATIVE (NEGATIVE); INFLUENZA TYPE A Negative For Type A (NEGATIVE); INFLUENZA TYPE B Negative For Type B (NEGATIVE)
[2023-09-22] MEDS: APIXaban 5 MG TABLET PO SCH (09:57)
[2023-09-22] MEDS: METOPROLOL TARTRATE 50 MG TAB PO SCH (09:57)
[2023-09-22] MEDS: EMPAGLIFLOZIN 10MG TABLET PO SCH (10:20)
[2023-09-22] MEDS: SPIRONOLACTONE 25 MG TAB PO SCH (10:21)
[2023-09-22] MEDS: ATORVASTATIN 40 MG TABLET PO SCH (21:41)
[2023-09-22] MEDS ORDERED: BENZONATATE 100 MG CAPSULE PO PRN (23:00)
[2023-09-23] VITALS (13 sets, daily range): BP systolic 119–167; BP diastolic 69–82; PULSE 73–109; RESP 15–24; O2SAT 92–98
[2023-09-23 04:19] LABS: HEMATOCRIT 43.4 % (36-48); MEAN CORPUSCULAR HEMOGLOBIN 31.2 pg (27.0-33.0); MEAN CORPUSCULAR HGB CONC 32.7 g/dL (32.0-36.0); MEAN CORPUSCULAR VOLUME 95.4 fL (79-99); RED BLOOD CELL COUNT(AUTO) 4.55 MIL/uL (4.00-5.50); RED CELL DISTRIBUTION WIDTH 16.3 % (11.0-15.5); WHITE BLOOD COUNT (AUTO) 6.5 K/uL (4.8-10.8)
[2023-09-23 04:29] LABS: INR 1.14 (0.85-1.15); PROTHROMBIN TIME 12.2 SEC (9.6-11.6)
[2023-09-23 04:36] LABS: ALBUMIN 2.5 g/dL (3.5-5.0); BILIRUBIN,TOTAL 1.1 mg/dL (0.2-1.0); CREATININE 1.1 mg/dL (0.5-1.0); MAGNESIUM 2.2 mg/dL (1.80-2.40); POTASSIUM 4.4 mmol/L (3.5-5.1); TOTAL PROTEIN, SERUM 7.8 g/dL (6.0-8.3)
[2023-09-23] MEDS: KCL 20 MEQ ERTAB PO SCH (11:10)
[2023-09-23] MEDS: FUROSEMIDE 20MG VIAL IV SCH (12:09)
[2023-09-23 13:02] LABS: PROTEIN,URINE RANDOM 10.9 mg/dL (0-11.9)
[2023-09-23 13:34] LABS: CREATININE,URINE RANDOM < 0.25 mg/dL (30-135)
[2023-09-23] MEDS: IpraTROPium/alBUTERol SULFATE 3 ML SOLUTION IH SCH (18:47)
[2023-09-24] VITALS (12 sets, daily range): BP systolic 127–143; BP diastolic 71–94; PULSE 72–113; RESP 16–22; O2SAT 95–98
[2023-09-24] MEDS: LISINOPRIL 10 MG TABLET PO SCH (08:11)
[2023-09-24] MEDS: FUROSEMIDE 40 MG TABLET PO SCH (08:12)
[2023-09-24] MEDS: DRONEDARONE HYDROCHLORIDE 400 MG TABLET PO SCH (10:47)
[2023-09-24] MEDS: MONTELUKAST SODIUM 10 MG TAB PO SCH (12:50)
[2023-09-24] MEDS: INSULIN GLARGINE 100 UNITS/ML 10 ML VIAL SQ SCH (23:11)
[2023-09-24] MEDS: INSULIN HUMULIN R 100 UNIT/ML 3ML SQ SCH (23:12)
[2023-09-25] VITALS (11 sets, daily range): BP systolic 106–159; BP diastolic 55–95; PULSE 70–86; RESP 18–20; O2SAT 95–97
[2023-09-25 03:23] LABS: HEMATOCRIT 46.1 % (36-48); MEAN CORPUSCULAR HEMOGLOBIN 31.1 pg (27.0-33.0); MEAN CORPUSCULAR HGB CONC 33.6 g/dL (32.0-36.0); MEAN CORPUSCULAR VOLUME 92.6 fL (79-99); RED BLOOD CELL COUNT(AUTO) 4.98 MIL/uL (4.00-5.50); RED CELL DISTRIBUTION WIDTH 15.9 % (11.0-15.5); WHITE BLOOD COUNT (AUTO) 5.8 K/uL (4.8-10.8)
[2023-09-25 03:38] LABS: ALBUMIN 2.7 g/dL (3.5-5.0); BILIRUBIN,TOTAL 1.1 mg/dL (0.2-1.0); CREATININE 1.1 mg/dL (0.5-1.0); MAGNESIUM 2.2 mg/dL (1.80-2.40); POTASSIUM 3.8 mmol/L (3.5-5.1); TOTAL PROTEIN, SERUM 8.5 g/dL (6.0-8.3)
[2023-09-25] MEDS ORDERED: LIDOCAINE PF 100MG/5ML (2%) SYRINGE 5ML ONE (09:58)
[2023-09-25] MEDS ORDERED: PROPOFOL 10 MG/ML 20ML VIAL IV ONE (09:58)
[2023-09-25] MEDS ORDERED: KETAMINE 50MG/ML SYRINGE 50 MG/ML DISP.SYRIN ONE (10:00)
[2023-09-25] MEDS: KCL 20 MEQ ERTAB PO PRN (12:06)
[2023-09-25] MEDS: LACTULOSE 20 GM/30 ML UDCUP PO ONE (14:06)
[2023-09-25] MEDS ORDERED: VANCOMYCIN PROTOCOL PER PHARMACY IV SCH (17:00)
[2023-09-25] MEDS: ceFEPime HCL 1 GM VIAL IVPB SCH (18:05)
[2023-09-25] MEDS: VANCOMYCIN 1G/250ML KIT 250 ML IV SCH (20:09)
[2023-09-26] VITALS (13 sets, daily range): BP systolic 108–149; BP diastolic 58–84; PULSE 67–88; RESP 16–20; O2SAT 93–98
[2023-09-26 08:17] LABS: HEMATOCRIT 43.3 % (36-48); MEAN CORPUSCULAR HEMOGLOBIN 31.4 pg (27.0-33.0); MEAN CORPUSCULAR HGB CONC 33.3 g/dL (32.0-36.0); MEAN CORPUSCULAR VOLUME 94.3 fL (79-99); RED BLOOD CELL COUNT(AUTO) 4.59 MIL/uL (4.00-5.50); RED CELL DISTRIBUTION WIDTH 16.2 % (11.0-15.5); WHITE BLOOD COUNT (AUTO) 5.5 K/uL (4.8-10.8)
[2023-09-26 08:34] LABS: ALBUMIN 2.8 g/dL (3.5-5.0); BILIRUBIN,TOTAL 1.3 mg/dL (0.2-1.0); CREATININE 1.3 mg/dL (0.5-1.0); MAGNESIUM 2.3 mg/dL (1.80-2.40); POTASSIUM 4.3 mmol/L (3.5-5.1); TOTAL PROTEIN, SERUM 8.2 g/dL (6.0-8.3)
[2023-09-26] MEDS: TORSEMIDE 20 MG TAB PO SCH (09:09)
[2023-09-27] VITALS (14 sets, daily range): BP systolic 110–138; BP diastolic 52–73; PULSE 66–84; RESP 18–20; O2SAT 94–96
[2023-09-27 09:03] LABS: HEMATOCRIT 43.5 % (36-48); MEAN CORPUSCULAR HEMOGLOBIN 31.1 pg (27.0-33.0); MEAN CORPUSCULAR HGB CONC 33.3 g/dL (32.0-36.0); MEAN CORPUSCULAR VOLUME 93.3 fL (79-99); RED BLOOD CELL COUNT(AUTO) 4.66 MIL/uL (4.00-5.50); RED CELL DISTRIBUTION WIDTH 16.1 % (11.0-15.5); WHITE BLOOD COUNT (AUTO) 5.6 K/uL (4.8-10.8)
[2023-09-27] MEDS: INSULIN GLARGINE 100 UNITS/ML 10 ML VIAL SQ SCH (09:15)
[2023-09-27 09:27] LABS: ALBUMIN 2.8 g/dL (3.5-5.0); BILIRUBIN,TOTAL 1.1 mg/dL (0.2-1.0); CREATININE 1.1 mg/dL (0.5-1.0); MAGNESIUM 2.2 mg/dL (1.80-2.40); TOTAL PROTEIN, SERUM 8.4 g/dL (6.0-8.3)
[2023-09-27] MEDS: VANCOMYCIN 1G/250ML KIT 250 ML IV SCH (23:30)
[2023-09-28] VITALS (13 sets, daily range): BP systolic 111–149; BP diastolic 57–80; PULSE 63–84; RESP 18–20; O2SAT 89–96
[2023-09-28 09:10] LABS: HEMATOCRIT 43.3 % (36-48); MEAN CORPUSCULAR HEMOGLOBIN 31.3 pg (27.0-33.0); MEAN CORPUSCULAR HGB CONC 33.9 g/dL (32.0-36.0); MEAN CORPUSCULAR VOLUME 92.1 fL (79-99); RED BLOOD CELL COUNT(AUTO) 4.7 MIL/uL (4.00-5.50); RED CELL DISTRIBUTION WIDTH 15.7 % (11.0-15.5); WHITE BLOOD COUNT (AUTO) 5.7 K/uL (4.8-10.8)
[2023-09-28 09:34] LABS: ALBUMIN 2.9 g/dL (3.5-5.0); BILIRUBIN,TOTAL 1.2 mg/dL (0.2-1.0); CREATININE 1.2 mg/dL (0.5-1.0); POTASSIUM 3.8 mmol/L (3.5-5.1); TOTAL PROTEIN, SERUM 8.4 g/dL (6.0-8.3)
[2023-09-28] MEDS ORDERED: LISI10TA24 PO (15:59)
[2023-09-28] MEDS ORDERED: DRON400T7 PO (15:59)
[2023-09-28] MEDS ORDERED: TORS20TA4 PO (16:03)
[2023-09-28] MEDS: INSULIN HUMULIN R 100 UNIT/ML 3ML SQ ONE (21:06)
[2023-09-29] VITALS (7 sets, daily range): BP systolic 88–127; BP diastolic 49–76; PULSE 66–84; RESP 14–18; O2SAT 95
[2023-09-29 05:42] LABS: BASOPHILS # (AUTO) 0.05 K/uL (0.00-0.20); BASOPHILS % (AUTO) 0.9 % (0.0-5.0); EOSINOPHILS # (AUTO) 0.22 K/uL (0.00-0.70); EOSINOPHILS % (AUTO) 3.7 % (0.0-8.0); HEMATOCRIT 42.6 % (36-48); IMMATURE GRANULOCYTE ABSOLUTE 0.02 K/uL (0-1); LYMPHOCYTES # (AUTO) 0.8 K/uL (1.0-4.8); MEAN CORPUSCULAR HEMOGLOBIN 31.4 pg (27.0-33.0); MEAN CORPUSCULAR VOLUME 92.2 fL (79-99); MONOCYTES # (AUTO) 0.6 K/uL (0.1-1.0); MONOCYTES % (AUTO) 9.4 % (3.0-13.0); NEUTROPHILS # (AUTO) 4.2 K/uL (1.8-7.7); NEUTROPHILS % (AUTO) 71.7 % (40.0-77.0); PLATELET COUNT (AUTO) 166 K/uL (130-400); RED BLOOD CELL COUNT(AUTO) 4.62 MIL/uL (4.00-5.50); RED CELL DISTRIBUTION WIDTH 15.5 % (11.0-15.5); WHITE BLOOD COUNT (AUTO) 5.9 K/uL (4.8-10.8)
[2023-09-29 06:03] LABS: ALBUMIN 2.8 g/dL (3.5-5.0); CREATININE 1.3 mg/dL (0.5-1.0); MAGNESIUM 2.1 mg/dL (1.80-2.40); PHOSPHORUS 4.4 mg/dL (2.5-4.9); POTASSIUM 3.8 mmol/L (3.5-5.1); TOTAL PROTEIN, SERUM 8.3 g/dL (6.0-8.3)
[2023-09-29] MEDS ORDERED: EMPA10TA PO (11:40)
== END 2023-09-29 15:35 | disposition home health service (06) | DRG 280 ==
LOC: EDH 00:33 → EDHIP 04:30 → 2BH 08:00 → 2DH 17:30 → 4CH 09-27 00:51
PROVIDERS: ADMIT Hospitalist; ATTEND Hospitalist
PROC: 5A2204Z Restoration of Cardiac Rhythm, Single (ICD-10-PCS; principal; 2023-09-25)
DX: I48.92 Unspecified atrial flutter (principal); I50.33 Acute on chronic diastolic (congestive) heart failure; I21.A1 Myocardial infarction type 2; J96.21 Acute and chronic respiratory failure with hypoxia; I13.0 Hypertensive heart and chronic kidney disease with heart failure and stage 1 through stage 4 chronic kidney disease, or unspecified chronic kidney disease; E66.2 Morbid (severe) obesity with alveolar hypoventilation; L10.0 Pemphigus vulgaris; N39.0 Urinary tract infection, site not specified; E87.3 Alkalosis; Z68.43 Body mass index [BMI] 50.0-59.9, adult; L03.116 Cellulitis of left lower limb; L03.115 Cellulitis of right lower limb; E87.1 Hypo-osmolality and hyponatremia; J81.1 Chronic pulmonary edema; I48.20 Chronic atrial fibrillation, unspecified; I48.3 Typical atrial flutter; N18.30 Chronic kidney disease, stage 3 unspecified; I25.10 Atherosclerotic heart disease of native coronary artery without angina pectoris; E78.00 Pure hypercholesterolemia, unspecified; M79.89 Other specified soft tissue disorders; G89.29 Other chronic pain; I70.8 Atherosclerosis of other arteries; I27.20 Pulmonary hypertension, unspecified; I87.2 Venous insufficiency (chronic) (peripheral); E11.22 Type 2 diabetes mellitus with diabetic chronic kidney disease; E11.65 Type 2 diabetes mellitus with hyperglycemia; E11.51 Type 2 diabetes mellitus with diabetic peripheral angiopathy without gangrene; E11.319 Type 2 diabetes mellitus with unspecified diabetic retinopathy without macular edema; I44.30 Unspecified atrioventricular block; I45.10 Unspecified right bundle-branch block; K76.0 Fatty (change of) liver, not elsewhere classified; I89.0 Lymphedema, not elsewhere classified; I35.8 Other nonrheumatic aortic valve disorders; E88.09 Other disorders of plasma-protein metabolism, not elsewhere classified; B96.4 Proteus (mirabilis) (morganii) as the cause of diseases classified elsewhere; B95.62 Methicillin resistant Staphylococcus aureus infection as the cause of diseases classified elsewhere; K80.20 Calculus of gallbladder without cholecystitis without obstruction; F41.9 Anxiety disorder, unspecified; I83.009 Varicose veins of unspecified lower extremity with ulcer of unspecified site; Z91.199 Patient's noncompliance with other medical treatment and regimen due to unspecified reason; Z79.899 Other long term (current) drug therapy; Z95.1 Presence of aortocoronary bypass graft; Z95.5 Presence of coronary angioplasty implant and graft; Z91.148 Patient's other noncompliance with medication regimen for other reason; Z87.891 Personal history of nicotine dependence; Z83.3 Family history of diabetes mellitus; Z82.49 Family history of ischemic heart disease and other diseases of the circulatory system; Z80.6 Family history of leukemia; Z79.84 Long term (current) use of oral hypoglycemic drugs; Z79.82 Long term (current) use of aspirin; Z79.4 Long term (current) use of insulin; Z79.02 Long term (current) use of antithrombotics/antiplatelets; Z79.01 Long term (current) use of anticoagulants; Z74.01 Bed confinement status
CPT/HCPCS: 36415; 36600; 71045; 71270; 76700; 76770; 80053; 80202; 81001; 82043; 82550; 82570; 82803; 82948; 83735; 83880; 84100; 84145; 84156; 84484; 85025; 85027; 85610; 87070; 87076; 87086; 87186; 87426; 87804; 93005; 93308; 93926; 93970; 94640; 94664; 96374; A6248; G0378; J0692; J1644; J1815; J1940; J2001; J2704; J3370; J3475; Q9967; J3490

== ENCOUNTER 2024-09-21 15:05 | Inpatient (IN) | payer MEDICARE ==
[~2024-09-21] VITALS: Ht 154.9 cm; Wt 94.3 kg
[2024-09-21] VITALS (18 sets, daily range): BP systolic 92–140; BP diastolic 33–64; PULSE 63–73; RESP 12–23; TEMP 98.5; O2SAT 99
[~2024-09-21 15:05] MED LIST changes: +BENZ200C53 PO; -CEFD300C3 PO; +DRON400T7 PO; +EMPA10TA PO; -FURO40TA5 PO; +INSU3INS5 SQ; +LISI10TA24 PO; -LISI20TA24 PO; +TORS20TA4 PO
[2024-09-21 15:53] LABS: IMMATURE GRANULOCYTE ABSOLUTE 0.04 K/uL (0-1); NUCLEATED RED BLOOD CELLS 0.0 % (0.0-0.19); PLATELET COUNT (AUTO) 154 K/uL (130-400); RED BLOOD CELL COUNT(AUTO) 5.54 MIL/uL (4.00-5.50); RED CELL DISTRIBUTION WIDTH 14.3 % (11.0-15.5); WHITE BLOOD COUNT (AUTO) 7.2 K/uL (4.8-10.8)
[2024-09-21 15:53] LABS: AMPHET/METH SCREEN,URINE NEGATIVE (NEGATIVE); BARBITURATE SCREEN, URINE NEGATIVE (NEGATIVE); CANNABINOID SCREEN,URINE POSITIVE (NEGATIVE); COCAINE SCREEN,URINE NEGATIVE (NEGATIVE)
[2024-09-21 15:57] LABS: ADD UA MICROSCOPIC YES; APPEARANCE,URINE CLEAR (CLEAR); GLUCOSE, URINE (UA) >=1000 mg/dL (NEGATIVE); LEUKOCYTE ESTERASE ,URINE NEGATIVE Leu/uL (NEGATIVE); NITRATE,URINE NEGATIVE (NEGATIVE); OCCULT BLOOD,URINE NEGATIVE (NEGATIVE)
--- NOTE | 2024-09-21 15:57 | HMCIMG ---
EXAM: CT Head Without IV contrast. CLINICAL HISTORY: headache TECHNIQUE: Axial computed tomography images of the head/brain without intravenous contrast. COMPARISON: 05/20/2023 FINDINGS: BRAIN: No acute bleed or infarct. Stable chronic ischemic and atrophic changes. VENTRICLES: No hydrocephalus. ORBITS: The orbits are unremarkable. SINUSES AND MASTOIDS: The paranasal sinuses and mastoid air cells are clear. BONES: No fracture. SOFT TISSUES: Unremarkable. IMPRESSION: No acute bleed or infarct. Stable chronic ischemic and atrophic changes. /[place]
[2024-09-21 16:03] LABS: CREATININE 0.7 mg/dL (0.5-1.0); GLOMERULAR FILTR. RATE CALC 90.0 mL/min (>90); GLUCOSE,RANDOM 199.0 mg/dL (70-105); SODIUM SERUM 138.0 mmol/L (136-145); UREA NITROGEN, BLOOD 20.0 mg/dL (7-18)
[2024-09-21 16:04] LABS: INR 0.95 (0.85-1.15)
--- NOTE | 2024-09-21 16:19 | HMCIMG ---
EXAM: XR Chest, 2 Views. CLINICAL HISTORY: 76-year-old female with palpitations. COMPARISON: 09/20/2024, 4:11 pm FINDINGS: LUNGS: The lungs are clear. No consolidation. PLEURAL SPACES: No pleural effusion or pneumothorax. HEART: The heart size is normal. BONES: No acute osseous abnormality. IMPRESSION: 1. No acute cardiopulmonary pathology. /[place]
--- NOTE | 2024-09-21 16:35 | ERN ---
General Chief Complaint: Altered Mental Status Stated Complaint: AMS Time Seen by MD: 15:08 Source: patient History of Present Illness Initial Comments Patient is a 74-year-old female coming in by EMS due to multiple complaints. Per patient she has been feeling very weak nauseous and has also been acting differently per family members. Allergies: Coded Allergies: bee venom protein (honey bee) (Unverified Allergy, Severe, ANAPHYLAXIS, 09/24/23) No Known Allergies (Verified Allergy, Unknown, 04/03/16) Home Meds Active Scripts Empagliflozin (Jardiance) 10 Mg Tablet, 10 MG PO DAILY for 30 Days, #30 TAB Prov:HALI LANE NP 09/29/23 Torsemide (Torsemide) 20 Mg Tablet, 40 MG PO DAILY for 30 Days, #30 TAB Prov:HALI LANE NP 09/28/23 Lisinopril (Lisinopril) 10 Mg Tablet, 10 MG PO DAILY for 30 Days, #30 TAB Prov:HALI LANE NP 09/28/23 Dronedarone Hydrochloride (Multaq) 400 Mg Tablet, 400 MG PO BID for 30 Days, #60 TAB Prov:HALI LANE NP 09/28/23 Apixaban (Eliquis) 5 Mg Tablet, 5 MG PO BID for 30 Days, #60 TAB Prov:HALI LANE PLUCK SEPARATOR 07/16/21 Reported Medications Insuln Asp Prt/Insulin Aspart (Novolog Mix 70-30 Flexpen Syrn) 100 Unit/Ml (70- 30) Insuln.pen, 60 UNITS SQ TIDAC 09/21/23 Benzonatate (Benzonatate) 200 Mg Capsule, 1 CAP PO TIDP PRN for COUGH 09/21/23 Metoprolol Succinate (Metoprolol Succinate) 50 Mg Tab.er.24h, 1 TAB PO BID 05/20/23 Atorvastatin Calcium (Atorvastatin Calcium) 80 Mg Tablet, 80 MG PO DAILY, TAB 06/30/22 Loratadine (Claritin) 10 Mg Tab, 1 TAB PO DAILY 04/28/22 Tramadol Hcl (Tramadol HCl) 50 Mg Tablet, 50 MG PO DAILY, TAB 07/13/21 Nitroglycerin (Nitroglycerin) 0.4 Mg Tab.subl, 0.4 MG SL Q5MIN X3 FOR CP PRN for CHESTPAIN, TAB.SL 07/13/21 Past Medical History Past Medical History: CHF, Diabetes-Type II, High Cholesterol, Hypertension Medical History Other: BULLOUS PEMPHIGOID Past Surgical History: CABG, Other, Surgical History Other: CAROTID STENTS Family History Family History: CAD, DM, HTN Social History Social History: Negative, Lives with family ROS Dictation CONSTITUTIONAL: No chills, no fever, no weakness, no diaphoresis, no malaise. HEAD/FACE: No signs of trauma. EENT: No eye pain, no blurred vision, no tearing, no double vision, no ear pain, no ear discharge, no nose pain, no nasal congestion, no throat pain, no throat swelling, no mouth pain. RESPIRATORY: No cough, no orthopnea, no SOB, no stridor, no wheezing. CARDIOVASCULAR: No chest pain, no edema, no palpitations, no syncope. GASTROINTESTINAL/ABDOMINAL: No abdominal pain, no constipation, no diarrhea, no nausea, no vomiting. GENITOURINARY: No abnormal discharge, no dysuria, no frequent urination, no hematuria. No complaints of pain in the genitals. MUSCULOSKELETAL: No back pain, no gout, no joint pain, no joint swelling, no muscle pain, no muscle stiffness, no neck pain. INTEGUMENTARY: No change in color, no change in hair/nails, no dryness, no lesion, no lumps, no rash. NEUROLOGICAL/PSYCH: No anxiety, not depressed, no emotional problem, no headache, no numbness, no pre-existing deficit, no history of seizures, no tremors, no weakness. HEMATOLOGIC/LYMPHATIC: Not anemic, no history of blood clots, no apparent bleeding, no bruising, glands not swollen. All Systems Negative, Except as Noted. Physical Exam Physical Exam Dictation VITAL SIGNS: Reviewed. GENERAL APPEARANCE: Alert, oriented x3, no acute distress, obese. HEAD AND FACE: Non-traumatic. EYES: PERRL, pink conjunctivas, eyelid no trauma, anterior chamber clear. EARS: Pinnas intact and no signs of trauma or erythema. Ear canals clear and no discharge. TMs no erythema. NOSE: No discharge, no bleeding. OROPHARYNX: Mouth normal, teeth no caries, tongue pink. Pharynx clear, no erythema. Tonsils no exudates, no abscesses noted. Mucous membrane moist. NECK: Supple, non-tender, no thyromegaly, no masses, no JVD, no bruits. BREAST: Deferred. CHEST: No tenderness, no crepitus, no paradoxical movement, no retractions. LUNGS: Clear, well-ventilated, symmetric, no rales, no wheezing, no rhonchi, no stridor, good breath sounds bilaterally. HEART: Regular rate, regular rhythm, no murmur, no gallops. VASCULAR: No peripheral edema. ABDOMEN: Soft, positive bowel sounds, nondistended, no guarding, nontender, no rebound, no masses no hepatomegaly, no splenomegaly, no Meng's sign, no hernias. RECTAL: Deferred. GENITAL: Deferred. NEUROLOGICAL: Normal speech, gross motor function intact, gross sensory function intact. MUSCULOSKELETAL: Neck nontender, full range of motion, back nontender, full range of motion. EXTREMITIES: Nontender, full range of motion. SKIN: Color pink, dry, no turgor, no rash, no lacerations, no abrasions, no contusions. LYMPHATICS: Deferred. Results Laboratory and Microbiology Lab and Micro Result Laboratory Tests Test 09/21/24 15:40 09/21/24 15:45 Urine Color LIGHT-YELLOW (YELLOW) Urine Appearance CLEAR (CLEAR) Urine pH 6.0 (5.0-8.0) Urine Specific Tarrs 1.022 (1.001-1.031) Urine Protein 50 mg/dL (NEGATIVE) H Urine Glucose (UA) >=1000 mg/dL (NEGATIVE) H Urine Ketones NEGATIVE mg/dL (NEGATIVE) Urine Occult Blood NEGATIVE (NEGATIVE) Urine Nitrate NEGATIVE (NEGATIVE) Urine Bilirubin NEGATIVE mg/dL (NEGATIVE) Urine Urobilinogen 0.2 mg/dL (0.2-1.0) Urine Leukocyte Esterase NEGATIVE Lui/uL Urine RBC 0-1 /HPF (0-1) Urine WBC 0-1 /HPF (0-1) Urine Bacteria None /HPF (None Seen) Urine Opiates Screen NEGATIVE (NEGATIVE) Urine Barbiturates Screen NEGATIVE (NEGATIVE) Urine Phencyclidine Screen NEGATIVE (NEGATIVE) Urine Amphetamines Screen NEGATIVE (NEGATIVE) Urine Benzodiazepines Screen NEGATIVE (NEGATIVE) Urine Cocaine Screen NEGATIVE (NEGATIVE) Urine Marijuana (THC) Screen POSITIVE (NEGATIVE) H White Blood Count 7.2 K/uL (4.8-10.8) Red Blood Count 5.54 MIL/uL (4.00-5.50) H Hemoglobin 17.6 g/dL (12.0-16.0) H Hematocrit 50.5 % (36-48) H Mean Corpuscular Volume 91.2 fL (79-99) Mean Corpuscular Hemoglobin 31.8 pg (27.0-33.0) Mean Corpuscular Hemoglobin Concent 34.9 g/dL (32.0-36.0) Red Cell Distribution Width 14.3 % (11.0-15.5) Platelet Count 154 K/uL (130-400) Mean Platelet Volume 9.7 fL (7.5-10.5) Immature Granulocyte % (Auto) 0.6 % (0-1) Neutrophils (%) (Auto) 70.2 % (40.0-77.0) Lymphocytes (%) (Auto) 20.7 % (21.0-51.0) L Monocytes (%) (Auto) 6.4 % (3.0-13.0) Eosinophils (%) (Auto) 1.4 % (0.0-8.0) Basophils (%) (Auto) 0.7 % (0.0-5.0) Neutrophils # (Auto) 5.1 K/uL (1.8-7.7) Lymphocytes # (Auto) 1.5 K/uL (1.0-4.8) Monocytes # (Auto) 0.5 K/uL (0.1-1.0) Eosinophils # (Auto) 0.10 K/uL (0.00-0.70) Basophils # (Auto) 0.05 K/uL (0.00-0.20) Absolute Immature Granulocyte (auto 0.04 K/uL (0-1) Nucleated Red Blood Cells 0.0 % (0.0-0.19) Prothrombin Time 10.1 SEC (9.6-11.6) Prothromb Time International Ratio 0.95 (0.85-1.15) Activated Partial Thromboplast Time 24.0 SEC (26.3-35.5) L Sodium Level 138 mmol/L (136-145) Potassium Level 3.5 mmol/L (3.5-5.1) Chloride Level 99 mmol/L (101-111) L Carbon Dioxide Level 27 mmol/L (21-32) Blood Urea Nitrogen 20 mg/dL (7-18) H Creatinine 0.7 mg/dL (0.5-1.0) Glomerular Filtration Rate Calc 90 mL/min (>90) Random Glucose 199 mg/dL (70-105) H Total Calcium 9.3 mg/dL (8.5-10.1) Magnesium Level 2.10 mg/dL (1.80-2.40) Troponin I High Sensitivity 55 ng/L (4-50) *H Labs Reviewed?: Yes EKG/XRAY/US/CT/MRI EKG Comment 09/21/2024 time 4:05 p.m. Ventricular rate [address] Normal sinus rhythm No ST wave elevation or depression X-RAY Comment [place] [address] [place] [address] IMAGING REPORT Signed PATIENT: KRISTIN SALCIDO MR#: [id number] : 1950 SEX: F AGE: 74 LOCATION: [facility] ORDER 150 STATUS: REG ER FOR BEHAVIORAL MEDICINE REPORT#: [id number] SERVICE 1508 REASON: cp ORDERING PHYSICIAN: MARY RAINES MD PROCEDURE: CXR1VW - CHEST 1VW EXAM: XR Chest, 2 Views. CLINICAL HISTORY: 76-year-old female with palpitations. COMPARISON: 09/20/2024, 4:11 pm FINDINGS: LUNGS: The lungs are clear. No consolidation. PLEURAL SPACES: No pleural effusion or pneumothorax. HEART: The heart size is normal. BONES: No acute osseous abnormality. IMPRESSION: 1. No acute cardiopulmonary pathology. /[place] DICTATED BY: ELLEN BRENNAN MD DATE: 09/21/241717 ELECTRONICALLY SIGNED BY: ELLEN BRENNAN MD DATE: 09/21/241717 CT Scan Comment IMAGING REPORT Signed PATIENT: KRISTIN SALCIDO MR#: [id number] : 1950 SEX: F AGE: 74 LOCATION: [facility] ORDER 150 STATUS: REG ER REPORT#: [id number] SERVICE 1508 REASON: headache ORDERING PHYSICIAN: MARY RAINES MD PROCEDURE: HEAD WO - CT HEAD/BRAIN W/O CONTRAST EXAM: CT Head Without IV contrast. CLINICAL HISTORY: headache TECHNIQUE: Axial computed tomography images of the head/brain without intravenous contrast. COMPARISON: 05/20/2023 FINDINGS: BRAIN: No acute bleed or infarct. Stable chronic ischemic and atrophic changes. VENTRICLES: No hydrocephalus. ORBITS: The orbits are unremarkable. SINUSES AND MASTOIDS: The paranasal sinuses and mastoid air cells are clear. BONES: No fracture. SOFT TISSUES: Unremarkable. IMPRESSION: No acute bleed or infarct. Stable chronic ischemic and atrophic changes. /[place] DICTATED BY: ASA PETTIT MD DATE: 09/21/241655 ELECTRONICALLY SIGNED BY: ASA PETTIT MD DATE: 09/21/241655 MDM MDM: Differential diagnosis: Altered mental status, polysubstance abuse, ACS, hypertensive emergency Rationale: Tests considered and ordered secondary to shared decision making include: labs, ECG and radiology Previous outside records reviewed: Old ER visits. Risk of complication and/or morbidity or mortality of patient management: None Medications-Per medication reconciliation Need for hospitalization: Patient does meet criteria for hospitalization. Need for emergency major/minor surgery: No There are no social concerns with this patient. Prescription drug management Prescriptions will include symptomatic care Patient's prior external medical records from other ER visits were reviewed by me as indicated. Prior testing and results from previous visits were reviewed. Prior tests were taken into account with medical decision making and resource utilization, independent historian/historians were used to obtain complete medical history. I independently interpreted the test that were performed, results were reviewed by me and considered findings on radiology if ordered. Medical management and examination interpretation discussions were had by me with other qualified healthcare professionals as indicated for the patient's care. Patient will be admitted under the care of hospitalist group for ongoing management ED Course Orders Procedure Category Date Status Time Cbc With Differential LAB 09/21/24 Complete 15:08 Prothrombin Time With LAB 09/21/24 Complete INR 15:08 Chest 1vw RAD 09/21/24 Resulted 15:08 12 Lead Ekg Tracing- EKG 09/21/24 Logged Technical 15:08 Magnesium LAB 09/21/24 Complete 15:08 Troponin I High LAB 09/21/24 Complete Sensitivity 15:08 Urinalysis Profile LAB 09/21/24 Complete 15:08 Partial LAB 09/21/24 Complete Thromboplastin Time 15:08 Basic Metabolic Panel LAB 09/21/24 Complete 15:08 Ct Head/Brain W/O CT 09/21/24 Resulted Contrast 15:08 Diazepam 5 Mg/Ml 2 Ml PHA 09/21/24 Complete Syg (Valium 5 Mg/M 15:30 Drug Screen Urine LAB 09/21/24 Complete 15:12 Diazepam 5 Mg/Ml 2 Ml PHA 09/21/24 Complete Syg (Valium 5 Mg/M 15:13 Nurse Driven [place] CHAU 09/21/24 In Process Removal Pro 15:27 Ondansetron 4mg Inj PHA 09/21/24 Complete (Zofran 4mg Inj) 16:30 Hydralazine 20mg Inj PHA 09/21/24 Complete (Apresoline 20mg In 16:30 Troponin I High LAB 09/21/24 Logged Sensitivity 16:38 Nicardipine 25mg Inj PHA 09/21/24 Logged (Cardene 25mg Inj) 17:00 Current Medications Medications (Trade) Dose Ordered Sig/Bob Route PRN Reason Start Time Stop Time Status Last Admin Dose Admin Diazepam (VALium 5 MG/ML 2 ML SYG) 5 mg ONCE ONCE IVP 09/21/24 15:30 09/21/24 15:31 DC 09/21/24 15:26 Diazepam (VALium 5 MG/ML 2 ML SYG) 10 mg STK-MED ONCE .ROUTE 09/21/24 15:13 09/21/24 15:14 DC Hydralazine HCl (APRESOLine 20MG INJ) 10 mg ONCE ONCE IV 09/21/24 16:30 09/21/24 16:32 DC 09/21/24 16:40 Nicardipine HCl 25 mg/Sodium Chloride 250 ml @ 0 mls/hr PROTOCOL IV 09/21/24 17:00 10/21/24 16:59 UNV Ondansetron HCl (zoFRAN 4MG INJ) 4 mg ONCE ONCE IVP 09/21/24 16:30 09/21/24 16:31 DC 09/21/24 16:18 Vital Signs Date Time Temp Pulse Resp B/P (MAP) Pulse Ox O2 Delivery O2 Flow Rate FiO2 09/21/24 16:40 70 21 184/72 99 Nasal Cannula* 2 28 09/21/24 16:30 65 21 207/86 99 Nasal Cannula* 2 28 09/21/24 16:10 59 21 207/76 99 Nasal Cannula* 2 28 09/21/24 15:52 66 21 195/74 99 Nasal Cannula* 2 28 09/21/24 15:35 70 21 209/94 99 Nasal Cannula* 2 28 09/21/24 15:08 97.5 65 18 170/85 97 Room Air 0 Critical Care Note Comments Critical Care Procedure Note Authorized and Performed by: me Total critical care time: Approximately 36 minutes Due to a high probability of clinically significant, life threatening deterioration, the patient required my highest level of preparedness to intervene emergently and I personally spent this critical care time directly and personally managing the patient. This critical care time included obtaining a history; examining the patient; pulse oximetry; ordering and review of studies; arranging urgent treatment with development of a management plan; evaluation of patient's response to treatment; frequent reassessment; and, discussions with other providers. This critical care time was performed to assess and manage the high probability of imminent, life-threatening deterioration that could result in multi-organ failure. It was exclusive of separately billable procedures and treating other patients and teaching time. Please see MDM section and the rest of the note for further information on patient assessment and treatment. DX & DISP Disposition: Inpatient Departure Impression: Primary Impression: Acute coronary syndrome Additional Impressions: Intractable nausea and vomiting, Hypertensive emergency, Cannabis abuse Condition: Stable Referrals: FLORIDALMA MCLEOD (PCP) MARY RAINES MD Sep 21, 2024 16:35
--- NOTE | 2024-09-21 17:07 | NUR ---
HOME MEDICATIONS RECONCILED AT THIS TIME./JOSE ALBERTO
--- NOTE | 2024-09-21 17:16 | NUR ---
DR. MACKENZIE CLARIFIED BP PARAMETERS TO BE KEPT BETWEEN 150-160 SYSTOLIC AND IF IT LOWERS TO BEGIN WEANING PT OFF NICARDEPINE./JOSE ALBERTO
--- NOTE | 2024-09-21 17:31 | NUR ---
REPORT GIVEN TO BECKY ALMEIDA AT THIS TIME./JOSE ALBERTO
--- NOTE | 2024-09-21 17:36 | NUR ---
DAUGHTER AT BEDSIDE STATES THE PATIENT HAS BEEN OUT OF CHARACTER FOR THE PAST FEW DAYS WITH IRRATIONAL IRRITABILITY.
--- NOTE | 2024-09-21 17:45 | NUR ---
CRITICAL CARE CONSULT COMPLETE
--- NOTE | 2024-09-21 17:59 | HP ---
[facility] HISTORY AND PHYSICAL Date of Service: Sep 21, 2024 Time of Service: 17:59 HISTORY OF PRESENT ILLNESS: 74-year-old female with a past medical history of hypertension, hyperlipidemia, diabetes mellitus type 2, history of tobacco, history of atrial fibrillation on anticoagulation with Eliquis use who presented to the hospital secondary to confusion. History is mostly obtained from patient's daughter was present at bedside. Patient has since yesterday has been less responsive at home. Per daughter she has noted that patient has been confused. Patient when seen at bedside is morning about pain. She does not answer questions and does not follow conversations. Per daughter patient was complaining of pain in the lower back area. She denied any falls, syncopal episode. She also has a wound in the right lower extremity which is currently dressed and is being followed by wound care. Daughter denied any fevers, chills, nausea, vomiting at home. She has not been able to take her home medications. She took her last dose of Eliquis two days ago. History is fairly limited secondary to patient's confusion. Labs were notable for white count of 7.2, hemoglobin was 17.6, platelet count was 154 K, sodium was 138, potassium was 3.5, creatinine is 0.7, blood glucose was 199 Blood pressure on presentation was 207/76, heart rate was 59, respiratory rate was 21, patient was saturating 99% on room REVIEW OF SYSTEMS Unable to obtain since patient is confused PAST MEDICAL HISTORY: Hypertension, hyperlipidemia, diabetes mellitus type 2, history of atrial fibrillation, history of CHF PAST SURGICAL HISTORY: History of CABG, history of , carotid endarterectomy PAST SOCIAL HISTORY: Denied any smoking, alcohol, drug use FAMILY HISTORY: Denied any pertinent family history Coded Allergies: bee venom protein (honey bee) (Unverified Allergy, Severe, ANAPHYLAXIS, 09/24/23) No Known Allergies (Verified Allergy, Unknown, 04/03/16) PHYSICAL EXAM GENERAL APPEARANCE: Patient is confused at bedside. She is somewhat responds to her name. She is moaning regarding pain. He is alert oriented times 0 NEUROLOGICAL: Unable to perform accurate neurological exam secondary to patient's confusion HEENT: Face is symmetric. Pupils are equal and reactive. Extraocular movements are intact. NECK: Supple. No JVD. No thyromegaly. No submental, submandibular, pre- /postauricular, occipital or supraclavicular lymphadenopathy. CHEST: Normal chest expansion. No Telemetry. LUNGS: Absence of any rales, rhonchi or any wheezing. CARDIOVASCULAR: Regular. S1 and S2 normal. No appreciable rubs, murmurs or gallops. ABDOMEN: Pain on palpation to the abdomen : Deferred. No Acosta. EXTREMITIES: Wound in the right lower extremity which is currently dressed SKIN: No skin breakdown. Vital Sign (Last 24 Hours) 09/21/24 09/21/24 15:08 17:15 Temp 97.5 Pulse 64 Resp 21 B/P (MAP) 161/60 Pulse Ox 99 O2 Delivery Nasal Cannula* O2 Flow Rate 2 FiO2 28 LABS: Laboratory: Test 09/21/24 16:52 09/21/24 15:45 09/21/24 15:40 Range/Units Troponin I High Sensitivity 54 *H 4-50 ng/L White Blood Count 7.2 4.8-10.8 K/uL Red Blood Count 5.54 H 4.00-5.50 MIL/uL Hemoglobin 17.6 H 12.0-16.0 g/dL Hematocrit 50.5 H 36-48 % Mean Corpuscular Volume 91.2 79-99 fL Mean Corpuscular Hemoglobin 31.8 27.0-33.0 pg Mean Corpuscular Hemoglobin Concent 34.9 32.0-36.0 g/dL Red Cell Distribution Width 14.3 11.0-15.5 % Platelet Count 154 130-400 K/uL Mean Platelet Volume 9.7 7.5-10.5 fL Immature Granulocyte % (Auto) 0.6 0-1 % Neutrophils (%) (Auto) 70.2 40.0-77.0 % Lymphocytes (%) (Auto) 20.7 L 21.0-51.0 % Monocytes (%) (Auto) 6.4 3.0-13.0 % Eosinophils (%) (Auto) 1.4 0.0-8.0 % Basophils (%) (Auto) 0.7 0.0-5.0 % Neutrophils # (Auto) 5.1 1.8-7.7 K/uL Lymphocytes # (Auto) 1.5 1.0-4.8 K/uL Monocytes # (Auto) 0.5 0.1-1.0 K/uL Eosinophils # (Auto) 0.10 0.00-0.70 K/uL Basophils # (Auto) 0.05 0.00-0.20 K/uL Absolute Immature Granulocyte (auto 0.04 0-1 K/uL Nucleated Red Blood Cells 0.0 0.0-0.19 % Prothrombin Time 10.1 9.6-11.6 SEC Prothromb Time International Ratio 0.95 0.85-1.15 Activated Partial Thromboplast Time 24.0 L 26.3-35.5 SEC Sodium Level 138 136-145 mmol/L Potassium Level 3.5 3.5-5.1 mmol/L Chloride Level 99 L 101-111 mmol/L Carbon Dioxide Level 27 21-32 mmol/L Blood Urea Nitrogen 20 H 7-18 mg/dL Creatinine 0.7 0.5-1.0 mg/dL Glomerular Filtration Rate Calc 90 >90 mL/min Random Glucose 199 H 70-105 mg/dL Total Calcium 9.3 8.5-10.1 mg/dL Magnesium Level 2.10 1.80-2.40 mg/dL Urine Color LIGHT-YELLOW YELLOW Urine Appearance CLEAR CLEAR Urine pH 6.0 5.0-8.0 Urine Specific Morven 1.022 1.001-1.031 Urine Protein 50 H NEGATIVE mg/dL Urine Glucose (UA) >=1000 H NEGATIVE mg/dL Urine Ketones NEGATIVE NEGATIVE mg/dL Urine Occult Blood NEGATIVE NEGATIVE Urine Nitrate NEGATIVE NEGATIVE Urine Bilirubin NEGATIVE NEGATIVE mg/dL Urine Urobilinogen 0.2 0.2-1.0 mg/dL Urine Leukocyte Esterase NEGATIVE NEGATIVE Lui/uL Urine RBC 0-1 0-1 /HPF Urine WBC 0-1 0-1 /HPF Urine Bacteria None None Seen /HPF Urine Opiates Screen NEGATIVE NEGATIVE Urine Barbiturates Screen NEGATIVE NEGATIVE Urine Phencyclidine Screen NEGATIVE NEGATIVE Urine Amphetamines Screen NEGATIVE NEGATIVE Urine Benzodiazepines Screen NEGATIVE NEGATIVE Urine Cocaine Screen NEGATIVE NEGATIVE Urine Marijuana (THC) Screen POSITIVE H NEGATIVE Current Medications Medications (Trade) Dose Ordered Sig/Bob Route PRN Reason Start Time Stop Time Status Last Admin Dose Admin Acetaminophen (TYLenol 500MG TAB) 500 mg Q6H PRN PO MILD PAIN (1-3) 09/21/24 17:30 10/21/24 17:29 Ceftriaxone Sodium (Rocephin 2gm Inj) 2 gm Q24H IVPB 09/21/24 17:30 8/23/25 17:29 Famotidine (Pepcid 20mg Vial) 20 mg BID IV 09/21/24 21:00 10/21/24 20:59 Insulin Human Regular (humuLIN R 100 UNIT/ML 3ML) INSULIN SLIDING SCAL... ACHS SQ 09/21/24 21:00 10/21/24 20:59 Nicardipine HCl 25 mg/Sodium Chloride 250 ml @ 0 mls/hr PROTOCOL IV 09/21/24 17:00 10/21/24 16:59 09/21/24 17:01 50 MLS/HR DIAGNOSTICS / RADIOLOGY: [ ] ASSESSMENT: AMS secondary to metabolic versus toxic encephalopathy Hypertensive emergency Mild troponin elevation likely in setting of type 2 MA Substance use with positive marijuana Hypertension Hyperlipidemia History of atrial fibrillation on Eliquis History of smoking Right lower extremity wound Obesity BMI 38.5 Possible acute on chronic CHF exacerbation rule out PLAN: - patient to be admitted to ICU -in reference to AMS. We will request Neurology consultation. Obtain blood cul tures. Patient to be started on Rocephin empirically for any infection. Check procalcitonin, CRP. -in reference to hypertensive emergency. Patient will be started on nicardipine drip. Keep blood pressure between 150-170 for 24 hours. Obtain critical Care consultation. -obtain home medications which will be reconciled once available -check NT pro BNP -obtain wound care consultation -further orders per hospitalization course. Advanced Care Planning Which of the following were discussed: Hospice care: Yes __ No _x_ Therapeutic options: Yes __ No __ Advance directives: Yes __ No __ Other discussions: Discussed with who?: patients daughter (Patient, family or surrogates) Voluntary nature of this service was explained to the patient? Yes _x_ No __ Amount of time spent: 25 minutes Cristobal Olivo MD Total critical care time spend greater than 35 mins. CRISTOBAL OLIVO MD Sep 21, 2024 17:59
--- NOTE | 2024-09-21 18:20 | NUR ---
PATIENT VOICED SHE RECOGNIZED HER SON AND STATED "HOSPITAL" WHEN ASKED IF SHE KNEW WHERE SHE IS. AFTERWARD THE PATIENT WITHDREW AND DID NOT ANSWER ANYMORE QUESTIONS OR RESPOND TO COMMANDS.
--- NOTE | 2024-09-21 18:37 | BSKYNEURO ---
[facility] Procedure Note [facility] Consult Consult [facility] Note # Demographics Consult Type: General Neurology Patient Location: Emergency Room First Name: KRISTIN LAWTON Last Name: OMARI Date of : 1950 Age: 74 Gender: Female Facility: [facility] Time of Initial Page (Central Time): 09/21/2024 17:36 First Contact with Site (Central Time): 09/21/2024 17:37 # HPI History: Here for generalized weakness and dizziness and n/v and AMS since at least this morning per son. # Exam Mental Status: - confused - sleepy Language: says "leave me alone" "what are you doing" Additional Neurologic Exam: arms and legs drift and poor effort with motor exam. moving all extremities spontaneously. # PMH-FH-SH Medications: - NOAC # Data Head CT: - no bleed - per radiologist read # Assessment Impression: - Altered Mental Status Toxometabolic /infectious workup. MRI brain if no etiology identified. # Plan Labs: - ABG - Ammonia - B12 - urine drug screen - TSH - ua Imaging: (urgency: routine): - MRI Brain without contrast Other: - If patient has any neurological deterioration please call me back immediately - would not pursue stroke work-up if MRI is negative # Logistics Attestation of consult completion: The patient is located at: [facility]. Facility staff participated in the visit. I performed this telemedicine visit from my offsite office utilizing interactive 2 way audio and visual telecommunication technology at the request of the onsite emergency room provider. Total time spent in telemedicine encounter: I spent 21 minutes reviewing clini leanne data and/or imaging, obtaining history, examining the patient, communicating with the onsite care team, and in preparation of this report. # Demographics First Name: KRISTIN LAWTON Last Name: OMARI Facility: [facility] Electronically signed at 09/21/2024 18:36 (Central Time) by Parker Mcdowell MD Neuro Consult Order placed for: Yes MANINDER MCDOWELL MD Sep 21, 2024 18:37
--- NOTE | 2024-09-21 19:19 | EKG ---
[facility] Test Date: 2024-09-21 Test Time: 16:05:15 Pat Name: KRISTIN SALCIDO Department: [facility] Room: 317 Gender: F Automatic [employer] Cutter: [id number] : 1950 Requested By: MARY RAINES Order Number: [id number] Reading MD: Abdulkadir Ko Measurements Intervals [place] Rate: 79 P: 52 WV: 169 QRS: -5 QRSD: 118 T: 79 QT: 440 QTc: 505 Interpretive Statements Sinus rhythm Incomplete right bundle branch block Prolonged QT interval Compared to ECG 09/25/2023 10:36:12 Incomplete right bundle-branch block now present Atrial premature complex(es) no longer present Electronically Signed On 09-23-2024 16:01:15 CDT by Abdulkadir Ko Please click the below link to view image of tracing.
--- NOTE | 2024-09-21 20:27 | HMCIMG ---
EXAM: CT Abdomen and Pelvis Without IV contrast CLINICAL HISTORY: abdominal pain TECHNIQUE: Axial computed tomography images of the abdomen and pelvis without intravenous contrast. CONTRAST: No IV contrast. COMPARISON: US abdomendated 09/25/23 9 FINDINGS: LUNG BASES: Minimal pleural effusion noted in the left lung base. Lungs appear congested. No focal lesions. Mild to moderate coronary artery calcifications. LIVER: Unremarkable. GALLBLADDER AND BILE DUCTS: The gallbladder contains a few dependent calculi, with no features of cholecystitis. No extra biliary obstruction. PANCREAS: Unremarkable. SPLEEN: Unremarkable. ADRENAL GLANDS: Unremarkable. KIDNEYS, URETERS, AND BLADDER: The kidneys appear within normal limits. There is no hydronephrosis or hydroureter. No urinary calculi are seen. Thick-walled urinary bladder which may be due to underdistention or cystitis. Acosta catheter in place. STOMACH AND BOWEL: Unremarkable appearance of the stomach and bowel. No evidence of bowel obstruction. No evidence suggesting enteritis or colitis.Scattered colonic diverticulae along the distal colon. APPENDIX: No evidence of acute appendicitis on CT examination. PERITONEUM: No free fluid. No free air. A fat-containing umbilical hernia with a hernial neck measuring 2.4 cm in width. LYMPH NODES: No lymphadenopathy is evident. REPRODUCTIVE: Unremarkable as visualised. VASCULATURE: No evidence of abdominal aortic aneurysm. BONES: No aggressive appearing osseous lesion. No acute osseous pathology . IMPRESSION: Thick-walled urinary bladder which may be due to underdistention or cystitis. Cholelithiasis with no features of cholecystitis. No urinary calculi. No hydronephrosis. No bowel obstruction or inflammation. Colonic diverticulosis. No features of diverticulitis. A fat-containing umbilical hernia. /[place]
[2024-09-21] MEDS: FAMOTIDINE 20MG VIAL IV SCH (20:52)
--- NOTE | 2024-09-21 20:57 | CONS ---
[facility] CONSULTATION NOTE Date Patient Seen: Sep 21, 2024 Time of Visit: 20:57 Supervising Physician: Dr. David Carpio Reason for Consultation: Hypertensive emergency, ICU support, AMS Primary Care Physician: Attending providers: [facility] hospitalist team Outpatient Specialists: Inpatient Consults: BIS, critical Care team PROBLEM LIST: AMS, metabolic vs toxic encephalopathy Hypertensive emergency Mild troponin elevation likely in setting of type 2 DC Substance use with positive marijuana Fluid overload, BNP 282, noncompliance with diuretic Erythrocytosis Diabetes mellitus with hyperglycemia, A1c 12.7 Elevated CRP Proteinuria and glucosuria Hypertension Hyperlipidemia Atrial fibrillation on Eliquis History of smoking Right lower extremity wound Obesity BMI 38.5 HPI: Ms. Arauz is a 74-year-old female with a past medical history of hypertension, hyperlipidemia, diabetes mellitus type 2, history of tobacco, history of atrial fibrillation on anticoagulation with Eliquis use who presented to [facility] ED for evaluation of confusion. The daughter reported that since yesterday the patient has been less responsive and confused. Per chart review the patient was morning about pain, was not answer questions, and and was not follow conversations. Per daughter patient was complaining of pain in the lower back area. She also has a wound in the right lower extremity and is being followed by wound care. The daughter reported that the patient is noncompliant with her torsemide because it makes her urinate a lot. The daughter also reported that the patient has not been able to take her home medications and the the patient took her last dose of Eliquis two days ago. Daughter denied any fevers, chills, nausea, vomiting, denied any falls, or syncopal episode. History is limited secondary to patient's confusion. Vital signs on arrival: 207/76, heart rate was 59, respiratory rate was 21, patient was saturating 99% on room. Labs: WBCs 7.2, hemoglobin was 17.6, platelet count was 154 K, sodium was 138, potassium was 3.5, creatinine is 0.7, blood glucose was 199, ED provider requested patient be admitted to the hospital with the diagnosis of ACS, intractable nausea and vomiting, hypertensive emergency, cannabis use. The patient was admitted by the [facility] hospitalist team with BIS team as consults for ICU support, hypertensive emergency, and AMS. I assessed the patient at bedside in room 208. Daughter and son were at bedside. Patient's breathing was even, unlabored, in no distress. She had Cardene running at 5 mg/hr. BP was 135/51, HR 73bpm, RR 18bpm, O2 92% on 2 L nasal cannula. When I asked the patient for her name she stated she does not want to talk and she wants water. Son and daughter provided all the information. I informed them of labs, diagnostics, and plan of care. They verbalized understanding and are in agreement with the plan. Plan and assessment are listed below. PAST MEDICAL HX: see above PAST SURGICAL HX: CABG, history of , carotid endarterectomy SOCIAL HISTORY: No tobacco, ETOH, or illicit drug use FAMILY HISTORY: Morbid obesity Coded Allergies: bee venom protein (honey bee) (Unverified Allergy, Severe, ANAPHYLAXIS, 09/24/23) No Known Allergies (Verified Allergy, Unknown, 04/03/16) REVIEW OF SYSTEMS: Unable to obtain ROS from patient. Patient reports she does not feel like talking, but is requesting water. PHYSICAL EXAM: GENERAL: Alert, weak, awake oriented x person. Unsure if oriented to time, place, situation. Noncontributory. She reports does not want to talk. HEENT: EOMI, Sclera non icteric, moist mucosa NECK: Supple, no JVD, trachea midline LUNGS: Clear breath sounds bilaterally. No wheezes HEART: Regular rate and rhythm. Normal S1 and S2, without murmurs ABD: Abdomen soft, obese, nontender. Bowel sounds present EXT: No clubbing cyanosis or edema NEURO: Alert and oriented to person, follows commands Vital Signs (last 8hr) Date Time Temp Pulse Resp B/P (MAP) Pulse Ox O2 Delivery O2 Flow Rate FiO2 09/21/24 19:25 66 18 136/64 96 Nasal Cannula* 2 09/21/24 18:35 97.5 67 21 147/55 98 Nasal Cannula* 2 09/21/24 17:15 64 21 161/60 99 Nasal Cannula* 2 09/21/24 17:02 66 21 208/76 99 Nasal Cannula* 2 09/21/24 17:01 66 208/76 09/21/24 16:40 70 21 184/72 99 Nasal Cannula* 2 09/21/24 16:30 65 21 207/86 99 Nasal Cannula* 2 09/21/24 16:10 59 21 207/76 99 Nasal Cannula* 2 25 15:52 66 21 195/74 99 Nasal Cannula* 2 28 09/21/24 15:35 70 21 209/94 99 Nasal Cannula* 2 28 09/21/24 15:08 97.5 65 18 170/85 97 Room Air 0 LABS: Hematology Labs: Test 09/21/24 15:45 Range/Units White Blood Count 7.2 4.8-10.8 K/uL Red Blood Count 5.54 H 4.00-5.50 MIL/uL Hemoglobin 17.6 H 12.0-16.0 g/dL Hematocrit 50.5 H 36-48 % Mean Corpuscular Volume 91.2 79-99 fL Mean Corpuscular Hemoglobin 31.8 27.0-33.0 pg Mean Corpuscular Hemoglobin Concent 34.9 32.0-36.0 g/dL Red Cell Distribution Width 14.3 11.0-15.5 % Platelet Count 154 130-400 K/uL Mean Platelet Volume 9.7 7.5-10.5 fL Immature Granulocyte % (Auto) 0.6 0-1 % Neutrophils (%) (Auto) 70.2 40.0-77.0 % Lymphocytes (%) (Auto) 20.7 L 21.0-51.0 % Monocytes (%) (Auto) 6.4 3.0-13.0 % Eosinophils (%) (Auto) 1.4 0.0-8.0 % Basophils (%) (Auto) 0.7 0.0-5.0 % Neutrophils # (Auto) 5.1 1.8-7.7 K/uL Lymphocytes # (Auto) 1.5 1.0-4.8 K/uL Monocytes # (Auto) 0.5 0.1-1.0 K/uL Eosinophils # (Auto) 0.10 0.00-0.70 K/uL Basophils # (Auto) 0.05 0.00-0.20 K/uL Absolute Immature Granulocyte (auto 0.04 0-1 K/uL Nucleated Red Blood Cells 0.0 0.0-0.19 % Chemistry Labs: Test 09/21/24 20:38 09/21/24 19:23 09/21/24 16:52 09/21/24 15:45 Range/Units Whole Blood Glucose 170 H 70-110 MG/DL Ammonia < 10 L 11-32 umol/L Troponin I High Sensitivity 54 *H 4-50 ng/L Sodium Level 138 136-145 mmol/L Potassium Level 3.5 3.5-5.1 mmol/L Chloride Level 99 L 101-111 mmol/L Carbon Dioxide Level 27 21-32 mmol/L Blood Urea Nitrogen 20 H 7-18 mg/dL Creatinine 0.7 0.5-1.0 mg/dL Glomerular Filtration Rate Calc 90 >90 mL/min Random Glucose 199 H 70-105 mg/dL Hemoglobin A1c 12.7 H 4.0-6.0 % Estimated Average Glucose (eAG) 318 H 70-126 mg/dL Total Calcium 9.3 8.5-10.1 mg/dL Magnesium Level 2.10 1.80-2.40 mg/dL C-Reactive Protein, Quantitative 7.70 H 0.5-3.0 mg/L B-Type Natriuretic Peptide 282 H 0-100 pg/mL Procalcitonin < 0.05 L 0.05-0.5 ng/mL Thyroid Stimulating Hormone (TSH) 3.71 # 0.36-3.74 uIU/mL Coagulation Labs: Test 09/21/24 15:45 Range/Units Prothrombin Time 10.1 9.6-11.6 SEC Prothromb Time International Ratio 0.95 0.85-1.15 Activated Partial Thromboplast Time 24.0 L 26.3-35.5 SEC DIAGNOSTICS / RADIOLOGY RESULTS: [ ] PLAN -The patient was admitted to ICU with continuous telemetry monitoring by admitting [employer] team, and BIS team as critical care consults. -Tele neuro was consulted by admitting team. -Follow blood cultures. -Continue Rocephin IV for empiric treatment. -Wean off of Cardene drip. -In a.m. continue blood pressure medications lisinopril, Multaq, metoprolol succinate, atorvastatin, Eliquis, torsemide. -Hold home medication tramadol, Jardiance, and NovoLog for now. -Nitroglycerin sublingual as needed chest pain -Aspirin 81 mg p.o. daily. -Education on medication compliance and on marijuana cessation. -Wound consult. -Troponin levels and EKG series. -Cardiology consult in the am. -2D echo in a.m. with heart clinic to read. -Avoid psychoactive medications as much as possible. Maintain adequate lighting during the daytime and a quiet environment at night with low light level to prevent acute delirium. Fall and aspiration precaution. -PRN medications for pain management, fever, N/V, constipation, hypertension. -Oxygen supplement as needed to maintain oxygen levels equal to or greater than 92% -Strict I&O. -Fluid restriction 1,200 mls in 24 hours. -Vital signs per ICU. -Glucometer checks before meals and at bedtime with insulin regular sliding scale. - Monitor renal and liver function. -Monitor electrolytes and treat accordingly PRN -AM labs. -GI and DVT prophylaxis -Further plan/orders per hospitalization course. NEURO: Minimize central acting medications as possible. Fall Precautions. Well lighted room through the day and minimize interruptions through the night to prevent acute delirium. PULMONARY: Supplemental 02 as needed Titrate Fio2 to keep Spo2 > or = 90% DuoNebs and CPT as needed IS hourly while awake for pulmonary hygiene Out of bed to chair as tolerated VAP Bundle CARDIOVASCULAR: Follow hemodynamics. Titrate vasopressor to keep MAP >65 or systolic blood pressure >95mmHg GI & NUTRITION: Continue nutritional support Aspirations precautions Prokinetic agents and laxatives as needed KIDNEYS & ELECTROLYTES: Strict monitoring of intake and output Daily weights Avoid nephrotoxic agents Monitor electrolytes and replace as needed Goal urine output of 30mL/hr or 0.5mL/kg/hr ENDOCRINE: Maintain blood glucose between 100-180 at all times. Insulin sliding scale for blood glucose management INFECTIOUS DISEASE: Trend temperature. Villanueva-culture if febrile. HEMATOLOGY & COAGULATION: Monitor H&H. Keep Hgb > 7 Transfuse 1 unit of PRBC for Hgb < 7 Transfuse 1 pack of platelets of platelets < 20, 000 Watch for any signs and symptoms of bleeding SKIN: Pressure ulcer prevention per facility protocol Rehab: PT/OT Code Status: Full Resuscitation Disposition: [Admit to ICU] LEIGHANN SOLIZ Sep 21, 2024 20:57
[2024-09-22] VITALS (33 sets, daily range): BP systolic 82–165; BP diastolic 40–78; PULSE 62–77; RESP 10–23; TEMP 98.1–98.9; O2SAT 92–99
[2024-09-22] MEDS ORDERED: GLUCAGON 1MG KIT 1 MG ML IM PRN (03:30)
[2024-09-22] MEDS ORDERED: DEXTROSE 50%-WATER 50 ML DISP.SYRIN IV PRN (03:30)
[2024-09-22] MEDS ORDERED: PoTASSium chloRIDE 20MEQ ER 20 MEQ ERTAB PO PRN (03:30)
[2024-09-22] MEDS ORDERED: LACTULOSE 20 GM/30 ML UDCUP PO PRN (03:30)
[2024-09-22 04:21] LABS: ABG BASE EXCESS -3.4 mmol/L (-2.0-3.0); ABG HCO3 19.2 mmol/L (21.0-28.0); ABG OXYGEN SATURATION 95.0 % (94.0-98.0); ABG PCO2 29 mmHg (32-45); ABG PH 7.435 (7.350-7.450); CARBON MONOXIDE 1.3 % (0.5-1.5); DEVICE COMMENT LR,RN CRYSTAL; PO2, ARTERIAL BG 72.5 mmHg (83.0-108.0); TEMPERATURE, CELSIUS BG 37.0 CELSIUS (35.5-37.0); VENT MODE, BG RA (ROOM AIR)
[2024-09-22] MEDS ORDERED: NITROGLYCERIN 0.4 MG SL TAB SL PRN (04:30)
[2024-09-22 04:51] LABS: NUCLEATED RED BLOOD CELLS 0.0 % (0.0-0.19); PLATELET COUNT (AUTO) 157.0 K/uL (130-400); RED BLOOD CELL COUNT(AUTO) 5.08 MIL/uL (4.00-5.50); RED CELL DISTRIBUTION WIDTH 14.3 % (11.0-15.5); WHITE BLOOD COUNT (AUTO) 7.3 K/uL (4.8-10.8)
[2024-09-22 05:15] LABS: ASPARTATE AMINOTRANSFERASE 32.0 U/L (10-37); CREATININE 0.7 mg/dL (0.5-1.0); GLOMERULAR FILTR. RATE CALC 90.0 mL/min (>90); GLUCOSE,RANDOM 125.0 mg/dL (70-105); PHOSPHORUS 4.1 mg/dL (2.5-4.9); SODIUM SERUM 136.0 mmol/L (136-145); TOTAL PROTEIN, SERUM 7.2 g/dL (6.0-8.3); UREA NITROGEN, BLOOD 20.0 mg/dL (7-18)
[2024-09-22 06:05] LABS: SARS-CoV-2, RNA, NAAT POSITIVE SARS CoV-2 (NEGATIVE)
[2024-09-22 06:14] LABS: INFLUENZA TYPE A Negative For Type A (NEGATIVE); INFLUENZA TYPE B Negative For Type B (NEGATIVE)
[2024-09-22] MEDS: ASPIRIN 81MG CHEW TAB PO SCH (08:20)
[2024-09-22] MEDS: LISINOPRIL 10 MG TABLET PO SCH (08:20)
[2024-09-22] MEDS: TORSEMIDE 20 MG TAB PO SCH (08:20)
[2024-09-22] MEDS: DRONEDARONE HYDROCHLORIDE 400 MG TABLET PO SCH (08:20)
--- NOTE | 2024-09-22 08:45 | PN ---
[facility] PROGRESS NOTE Date Patient Seen: Sep 22, 2024 Time of Visit: 08:37 Supervising Physician: David Carpio MD Primary Care Physician: Attending providers: [facility] hospitalist team Outpatient Specialists: Inpatient Consults: BIS, critical Care team PROBLEM LIST: AMS, metabolic vs toxic encephalopathy CT head neg for bleed Hypertensive emergency Mild troponin elevation likely in setting of type 2 NV Substance use with positive marijuana Fluid overload, BNP 282, noncompliance with diuretic Erythrocytosis Cholelithiasis without evidence of cholecystitis on CT Diabetes mellitus with hyperglycemia, A1c 12.7 Elevated CRP Proteinuria and glucosuria Hypertension Hyperlipidemia Atrial fibrillation on Eliquis History of smoking Right lower extremity wound Obesity BMI 38.5 INTERVAL HISTORY: Patient continues confused. Moans and reports headache. She has no obvious focal deficit. Pupils are equal 3 mm and reactive to light. No nausea or vomiting reported. She is in no apparent respiratory distress at this time. She appears uncomfortable. We will order Tylenol IV for pain. She is off the Cardene drip. We will hold Eliquis and start Lovenox 1 milligram/kilogram subQ b.i.d. due to acute illness in case of invasive procedures needed. Added doxycycline to antibiotic regimen to cover for atypical community-acquired pneumonias. Blood pressure currently 113/51 with a map of 71 heart rate in the 60s respiratory rate of 22 unlabored saturating 99% on 2 L via nasal cannula. T-max of 99 in the last 24 hours. Urine output 2.4 L. H&H improved to 16 0.3/46.2. BUN of 20 creatinine of 0.7 GFR of 90. Leaking troponin with a max high sensitivity troponin of 62. Ammonia is less than 10. Albumin of 2.9. Liver enzymes within normal limits. UDS positive for THC. On serology COVID positive. Started Decadron 6 mg p.o. daily x7 days. REVIEW OF SYSTEMS: Unable to obtain ROS from patient. Patient reports she does not feel like talking, but is requesting water. PHYSICAL EXAM: GENERAL: Alert, weak, awake oriented x person. Unsure if oriented to time, place, situation. Noncontributory. She reports does not want to talk. HEENT: EOMI, Sclera non icteric, moist mucosa NECK: Supple, no JVD, trachea midline LUNGS: Clear breath sounds bilaterally. No wheezes HEART: Regular rate and rhythm. Normal S1 and S2, without murmurs ABD: Abdomen soft, obese, nontender. Bowel sounds present EXT: No clubbing cyanosis or edema NEURO: Alert and oriented to person, follows commands Vital Signs (last 8hr) Date Time Temp Pulse Resp B/P (MAP) Pulse Ox O2 Delivery O2 Flow Rate FiO2 09/22/24 08:30 68 16 154/67 97 Nasal Cannula 2.0 09/22/24 08:00 98.1 75 18 137/66 91 Nasal Cannula 2.0 09/22/24 07:00 67 21 122/50 91 Nasal Cannula 2.0 09/22/24 05:41 67 22 113/51 (71) 91 09/22/24 05:12 76 22 105/45 (65) 94 09/22/24 04:41 73 10 110/46 (67) 93 09/22/24 04:11 99.0 69 19 134/56 (82) 92 09/22/24 04:00 99 Nasal Cannula* 2 28 09/22/24 03:41 72 11 135/58 (83) 97 09/22/24 03:11 73 21 127/50 (75) 95 09/22/24 02:41 77 15 141/73 (95) 93 09/22/24 02:11 71 22 144/59 (87) 97 09/22/24 01:41 74 22 165/69 (101) 96 09/22/24 01:11 71 20 159/60 (93) 96 09/22/24 00:41 72 12 153/69 95 Nasal Cannula 2.0 LABS: Hematology Labs: Test 09/22/24 04:19 09/21/24 15:45 Range/Units White Blood Count 7.3 4.8-10.8 K/uL Red Blood Count 5.08 4.00-5.50 MIL/uL Hemoglobin 16.3 H 12.0-16.0 g/dL Hematocrit 46.2 36-48 % Mean Corpuscular Volume 90.9 79-99 fL Mean Corpuscular Hemoglobin 32.1 27.0-33.0 pg Mean Corpuscular Hemoglobin Concent 35.3 32.0-36.0 g/dL Red Cell Distribution Width 14.3 11.0-15.5 % Platelet Count 157 130-400 K/uL Mean Platelet Volume 11.3 H 7.5-10.5 fL Nucleated Red Blood Cells 0.0 0.0-0.19 % Immature Granulocyte % (Auto) 0.6 0-1 % Neutrophils (%) (Auto) 70.2 40.0-77.0 % Lymphocytes (%) (Auto) 20.7 L 21.0-51.0 % Monocytes (%) (Auto) 6.4 3.0-13.0 % Eosinophils (%) (Auto) 1.4 0.0-8.0 % Basophils (%) (Auto) 0.7 0.0-5.0 % Neutrophils # (Auto) 5.1 1.8-7.7 K/uL Lymphocytes # (Auto) 1.5 1.0-4.8 K/uL Monocytes # (Auto) 0.5 0.1-1.0 K/uL Eosinophils # (Auto) 0.10 0.00-0.70 K/uL Basophils # (Auto) 0.05 0.00-0.20 K/uL Absolute Immature Granulocyte (auto 0.04 0-1 K/uL Chemistry Labs: Test 09/22/24 04:19 09/21/24 20:38 09/21/24 19:23 09/21/24 15:45 Range/Units Sodium Level 136 136-145 mmol/L Potassium Level 4.7 3.5-5.1 mmol/L Chloride Level 101 101-111 mmol/L Carbon Dioxide Level 21 21-32 mmol/L Blood Urea Nitrogen 20 H 7-18 mg/dL Creatinine 0.7 0.5-1.0 mg/dL Glomerular Filtration Rate Calc 90 >90 mL/min Random Glucose 125 H 70-105 mg/dL Total Calcium 8.7 8.5-10.1 mg/dL Phosphorus Level 4.1 2.5-4.9 mg/dL Magnesium Level 2.00 1.80-2.40 mg/dL Total Bilirubin 0.7 0.2-1.0 mg/dL Aspartate Amino Transf (AST/SGOT) 32 10-37 U/L Alanine Aminotransferase (ALT/SGPT) 30 12-78 U/L Alkaline Phosphatase 112 50-136 U/L Troponin I High Sensitivity 57 *H 4-50 ng/L Total Protein 7.2 6.0-8.3 g/dL Albumin 2.9 L 3.5-5.0 g/dL Whole Blood Glucose 170 H 70-110 MG/DL Ammonia < 10 L 11-32 umol/L Hemoglobin A1c 12.7 H 4.0-6.0 % Estimated Average Glucose (eAG) 318 H 70-126 mg/dL C-Reactive Protein, Quantitative 7.70 H 0.5-3.0 mg/L B-Type Natriuretic Peptide 282 H 0-100 pg/mL Procalcitonin < 0.05 L 0.05-0.5 ng/mL Thyroid Stimulating Hormone (TSH) 3.71 # 0.36-3.74 uIU/mL Coagulation Labs: Test 09/21/24 15:45 Range/Units Prothrombin Time 10.1 9.6-11.6 SEC Prothromb Time International Ratio 0.95 0.85-1.15 Activated Partial Thromboplast Time 24.0 L 26.3-35.5 SEC DIAGNOSTICS / RADIOLOGY RESULTS: [ ][place] [address] [place] [id number] IMAGING REPORT Signed PATIENT: KRISTIN SALCIDO MR#: [id number] : 1950 SEX: F AGE: 74 LOCATION: EDHIP ORDER STATUS: ADM IN REPORT#: [id number] SERVICE 08 REASON: abdominal pain ORDERING PHYSICIAN: CRISTOBAL MACKENZIE MD PROCEDURE: ABD PEL WO - CT ABDOMEN/PELVIS W/O CONTRAST EXAM: CT Abdomen and Pelvis Without IV contrast CLINICAL HISTORY: abdominal pain TECHNIQUE: Axial computed tomography images of the abdomen and pelvis without intravenous contrast. CONTRAST: No IV contrast. COMPARISON: US abdomendated 09/25/23 9 FINDINGS: LUNG BASES: Minimal pleural effusion noted in the left lung base. Lungs appear congested. No focal lesions. Mild to moderate coronary artery calcifications. LIVER: Unremarkable. GALLBLADDER AND BILE DUCTS: The gallbladder contains a few dependent calculi, with no features of cholecystitis. No extra biliary obstruction. PANCREAS: Unremarkable. SPLEEN: Unremarkable. ADRENAL GLANDS: Unremarkable. KIDNEYS, URETERS, AND BLADDER: The kidneys appear within normal limits. There is no hydronephrosis or hydroureter. No urinary calculi are seen. Thick-walled urinary bladder which may be due to underdistention or cystitis. Acosta catheter in place. STOMACH AND BOWEL: Unremarkable appearance of the stomach and bowel. No evidence of bowel obstruction. No evidence suggesting enteritis or colitis.Scattered colonic diverticulae along the distal colon. APPENDIX: No evidence of acute appendicitis on CT examination. PERITONEUM: No free fluid. No free air. A fat-containing umbilical hernia with a hernial neck measuring 2.4 cm in width. LYMPH NODES: No lymphadenopathy is evident. REPRODUCTIVE: Unremarkable as visualised. VASCULATURE: No evidence of abdominal aortic aneurysm. BONES: No aggressive appearing osseous lesion. No acute osseous pathology . IMPRESSION: Thick-walled urinary bladder which may be due to underdistention or cystitis. Cholelithiasis with no features of cholecystitis. No urinary calculi. No hydronephrosis. No bowel obstruction or inflammation. Colonic diverticulosis. No features of diverticulitis. A fat-containing umbilical hernia. /[place] DICTATED BY: ASA PETTIT MD DATE: 09/21/242125 ELECTRONICALLY SIGNED BY: ASA PETTIT MD DATE: 09/21/242125 [place] [address] IMAGING REPORT Signed PATIENT: KRISTIN SALCIDO MR#: [id number] : 1950 SEX: F AGE: 74 LOCATION: ED ORDER 1509 STATUS: [facility] REPORT#: [id number] SERVICE 1508 REASON: headache ORDERING PHYSICIAN: MARY RAINES MD PROCEDURE: HEAD WO - CT HEAD/BRAIN W/O CONTRAST EXAM: CT Head Without IV contrast. CLINICAL HISTORY: headache TECHNIQUE: Axial computed tomography images of the head/brain without intravenous contrast. COMPARISON: 05/20/2023 FINDINGS: BRAIN: No acute bleed or infarct. Stable chronic ischemic and atrophic changes. VENTRICLES: No hydrocephalus. ORBITS: The orbits are unremarkable. SINUSES AND MASTOIDS: The paranasal sinuses and mastoid air cells are clear. BONES: No fracture. SOFT TISSUES: Unremarkable. IMPRESSION: No acute bleed or infarct. Stable chronic ischemic and atrophic changes. /[place] DICTATED BY: ASA PETTIT MD DATE: 09/21/241655 ELECTRONICALLY SIGNED BY: ASA PETTIT MD DATE: 09/21/241655 [place] [address] [place] [id number] IMAGING REPORT Signed PATIENT: KRISTIN SALCIDO MR#: [id number] : 1950 SEX: F AGE: 74 LOCATION: EDH ORDER 08 STATUS: [facility] REPORT#: [id number] SERVICE 07 REASON: cp ORDERING PHYSICIAN: MARY RAINES MD PROCEDURE: CXR1VW - CHEST 1VW EXAM: XR Chest, 2 Views. CLINICAL HISTORY: 76-year-old female with palpitations. COMPARISON: 09/20/2024, 4:11 pm FINDINGS: LUNGS: The lungs are clear. No consolidation. PLEURAL SPACES: No pleural effusion or pneumothorax. HEART: The heart size is normal. BONES: No acute osseous abnormality. IMPRESSION: 1. No acute cardiopulmonary pathology. /[place] DICTATED BY: ELLEN BRENNAN MD DATE: 09/21/241717 ELECTRONICALLY SIGNED BY: ELLEN BRENNAN MD DATE: 09/21/241717 PLAN Patient is pending an MRI CT of the head stat ABG Start insulin drip for possible euglycemic DKA from Jardiance if acidosis on ABG. Discontinue Jardiance. Continue Rocephin and add doxycycline for atypical community-acquired pneumonia Sputum culture Decadron due to hypoxemia NEURO: Minimize central acting medications as possible. Fall Precautions. Well lighted room through the day and minimize interruptions through the night to prevent acute delirium. PULMONARY: Supplemental 02 as needed Titrate Fio2 to keep Spo2 > or = 90% DuoNebs and CPT as needed IS hourly while awake for pulmonary hygiene Out of bed to chair as tolerated VAP Bundle CARDIOVASCULAR: Follow hemodynamics. Titrate vasopressor to keep MAP >65 or systolic blood pressure >95mmHg GI & NUTRITION: Continue nutritional support Aspirations precautions Prokinetic agents and laxatives as needed KIDNEYS & ELECTROLYTES: Strict monitoring of intake and output Daily weights Avoid nephrotoxic agents Monitor electrolytes and replace as needed Goal urine output of 30mL/hr or 0.5mL/kg/hr ENDOCRINE: Maintain blood glucose between 100-180 at all times. Insulin sliding scale for blood glucose management INFECTIOUS DISEASE: Trend temperature. Villanueva-culture if febrile. HEMATOLOGY & COAGULATION: Monitor H&H. Keep Hgb > 7 Transfuse 1 unit of PRBC for Hgb < 7 Transfuse 1 pack of platelets of platelets < 20, 000 Watch for any signs and symptoms of bleeding SKIN: Pressure ulcer prevention per facility protocol Rehab: PT/OT Code Status: Full Resuscitation Disposition: [Admit to ICU] ATTESTATION BY PHYSICIAN The patient has been seen and evaluated, the case has been discussed with the ASSOCIATE THEATRE PROFESSOR, I agree with the clinical findings and plan of care. David Carpio MD, [facility] Sep 22, 2024 08:45
[2024-09-22 09:17] LABS: ABG BASE EXCESS -1.9 mmol/L (-2.0-3.0); ABG HCO3 20.3 mmol/L (21.0-28.0); ABG OXYGEN SATURATION 96.9 % (94.0-98.0); ABG PCO2 29 mmHg (32-45); ABG PH 7.463 (7.350-7.450); CARBON MONOXIDE 1.6 % (0.5-1.5); DEVICE COMMENT LR EDDIE; PO2, ARTERIAL BG 90.5 mmHg (83.0-108.0); TEMPERATURE, CELSIUS BG 37.0 CELSIUS (35.5-37.0); VENT MODE, BG ROOM AIR (ROOM AIR)
[2024-09-22] MEDS ORDERED: 0.9%NACL 1000ML 1,000 ML IV SCH (09:30)
[2024-09-22] MEDS ORDERED: DEXTROSE 5 %-0.45 % NACL 1,000 ML IV SCH (09:30)
[2024-09-22] MEDS ORDERED: MAGNESIUM 2GM PREMIX 50ML 50 ML IV SCH (09:30)
[2024-09-22] MEDS: DOXYCYCLINE 100MG+NS 250ML 250 ML IV SCH (10:08)
[2024-09-22] MEDS: INSULIN REGULAR, HUMAN 3ML 100 UNIT in 0.9%NACL 100ML 100 ML IV SCH (10:24)
[2024-09-22] MEDS: D5W-1/2 NS/20MEQ KCL 1,000 ML IV SCH (10:26)
--- NOTE | 2024-09-22 10:57 | NUR ---
DCP: HOME Pt is LIZETTE landeros met with daughter Imani Arauz [phone]. Daughter and her 15 and 16yro kids live with pt, daughter gets food stamp assistance. Daughter is pt's provider 33hrs a week and states pt needs help with "everything". Dgtr states she helps with bathing, dressing grooming, home management and meal prep. Dgtr's car is not working so they have no means of transportation at this time.Pt has a walker, w/c, shower chair, bsc, hospital bed. and O2 thru [employer]. Pt gets wound care Mondays and thru [facility]. No dialysis. PCP is Adela De La Fuente and uses [facility] for rx needs. Daughter states she [place] and family will assist as needed Addendum: 09/22/24 at 1104 by NELSON GRAHAM SS Amended: Links added.
--- NOTE | 2024-09-22 11:06 | NUR ---
NURSE TO GET PRESCREEN FILLED OUT PRIOR TO MRI.
--- NOTE | 2024-09-22 11:55 | HMCIMG ---
Exam: NONCONTRAST CT BRAIN REASON: AMS. COMPARISON: None. TECHNIQUE: Images are obtained from vertex to the skull base. The exam was performed without IV contrast. FINDINGS: There is normal appearing brain parenchyma. There are no focal mass lesions. There is is no evidence of intracranial hemorrhage or acute stroke. Ventricles and sulci appear normal. Posterior fossa and brainstem structures are unremarkable. Paranasal sinuses and remaining extracranial soft tissues appear normal as well.There is global atrophy with periventricular ischemic white matter changes. IMPRESSION: 1. No acute intracranial process 2. Global atrophy with moderately severe periventricular ischemic white matter changes. CT was performed with one or more following dose reduction techniques: automated exposure control, adjustment of the mA and kv according to patient's size, or use of a iterative reconstruction technique.
[2024-09-22] MEDS ORDERED: D5W-1/2 NS/20MEQ KCL 1,000 ML IV SCH (13:00)
--- NOTE | 2024-09-22 15:15 | NUR ---
[facility] Consult: Patient assessed by wound healing team. See wound assessment. Assessment and recommendations provided to primary nurse/ Education provided. Addendum: 09/23/24 at 0848 by GIA PLAZA RN RN/ Amended: Links added.
--- NOTE | 2024-09-22 15:16 | HMCIMG ---
EXAM: CR Chest, 1 View. CLINICAL HISTORY: Pneumonia COMPARISON: Radiograph dated September 21, 2024 FINDINGS: Interval improved aeration throughout both lungs. Mild residual bilateral perihilar and right basilar airspace disease. No pleural effusion or pneumothorax. Heart size is stable. Interval decrease pulmonary vascular congestion. IMPRESSION: 1. Improved but persistent bilateral perihilar and right basilar airspace disease, consistent with improving pneumonia. /[place]
[2024-09-22 15:25] LABS: CREATININE 1.0 mg/dL (0.5-1.0); GLOMERULAR FILTR. RATE CALC 59.0 mL/min (>90); GLUCOSE,RANDOM 254.0 mg/dL (70-105); SODIUM SERUM 134.0 mmol/L (136-145); UREA NITROGEN, BLOOD 25.0 mg/dL (7-18)
[2024-09-22] MEDS: PoTASSium chl 10% ELIXIR 20MEQ 20 MEQ/15 ML UDCUP PO PRN (16:44)
--- NOTE | 2024-09-22 18:13 | PN ---
[facility] PROGRESS NOTE Date of Service: Sep 22, 2024 Time of Service: 18:12 SUBJECTIVE: 74-year-old female with a past medical history of hypertension, hyperlipidemia, diabetes mellitus type 2, history of tobacco, history of atrial fibrillation on anticoagulation with Eliquis use who presented to the hospital secondary to confusion. History is mostly obtained from patient's daughter was present at bedside. Patient has since yesterday has been less responsive at home. Per daughter she has noted that patient has been confused. Patient when seen at bedside is morning about pain. She does not answer questions and does not follow conversations. Per daughter patient was complaining of pain in the lower back area. She denied any falls, syncopal episode. She also has a wound in the right lower extremity which is currently dressed and is being followed by wound care. Daughter denied any fevers, chills, nausea, vomiting at home. She has not been able to take her home medications. She took her last dose of Eliquis two days ago. History is fairly limited secondary to patient's confusion. Labs were notable for white count of 7.2, hemoglobin was 17.6, platelet count was 154 K, sodium was 138, potassium was 3.5, creatinine is 0.7, blood glucose was 199 Blood pressure on presentation was 207/76, heart rate was 59, respiratory rate was 21, patient was saturating 99% on room 09/22/2024: The patient was confused, not oriented. The daughter told that the patient was irritable with a past 5 days but yesterday morning after the breakfast, the patient became confused and presented with altered mental status. She has never had an episode like this in the past. On admission the patient's blood pressure was 1 70 x with labetalol, nicardipine, nitroglycerin and lisinopril were started. Today her blood pressure is 110/59. Patient's chest x-ray persistent bilateral perihilar and right basilar airspace disease. The patient is COVID positive and was started on dexamethasone along with Rocephin and doxycycline. CT head is negative for any active bleed. An MRI is planned along with urology consult. Patient is urine showed a protein of > 50 and glucose > 1000. REVIEW OF SYSTEMS Unable to obtain since patient is confused PHYSICAL EXAM GENERAL APPEARANCE: Patient is confused at bedside. She is moaning regarding pain. He is alert oriented times 0 NEUROLOGICAL: Unable to perform accurate neurological exam secondary to patient's confusion HEENT: Face is symmetric. Pupils are equal and reactive. Extraocular movements are intact. NECK: Supple. No JVD. No thyromegaly. No submental, submandibular, pre- /postauricular, occipital or supraclavicular lymphadenopathy. CHEST: Normal chest expansion. No Telemetry. LUNGS: Absence of any rales, rhonchi or any wheezing. CARDIOVASCULAR: Regular. S1 and S2 normal. No appreciable rubs, murmurs or gallops. : Deferred. No Acosta. EXTREMITIES: Wound in the right lower extremity which is currently dressed SKIN: No skin breakdown. Vital Signs (last 8hr) Date Time Temp Pulse Resp B/P (MAP) Pulse Ox O2 Delivery O2 Flow Rate FiO2 09/22/24 16:30 69 12 110/59 96 Room Air 09/22/24 16:00 92 Room Air* 0 21 09/22/24 15:30 98.2 62 11 107/46 92 Room Air 09/22/24 14:30 65 20 114/51 90 Room Air 09/22/24 13:30 66 20 102/52 90 Room Air 09/22/24 12:30 64 20 117/50 95 Room Air 09/22/24 12:00 99 Room Air* 0 21 09/22/24 11:30 98.4 64 21 118/49 94 Room Air 09/22/24 10:30 69 21 140/74 92 Room Air LABS: Laboratory: Test 09/22/24 16:46 09/22/24 15:07 09/22/24 09:15 09/22/24 08:51 Range/Units Whole Blood Glucose 214 H 70-110 MG/DL Sodium Level 134 L 136-145 mmol/L Potassium Level 3.8 3.5-5.1 mmol/L Chloride Level 99 L 101-111 mmol/L Carbon Dioxide Level 24 21-32 mmol/L Blood Urea Nitrogen 25 H 7-18 mg/dL Creatinine 1.0 0.5-1.0 mg/dL Glomerular Filtration Rate Calc 59 >90 mL/min Random Glucose 254 #H 70-105 mg/dL Total Calcium 8.5 8.5-10.1 mg/dL Blood Gas Specimen Type Arterial Arterial Blood pH 7.463 H 7.350-7.450 Arterial Blood Partial Pressure CO2 29 L 32-45 mmHg Arterial Blood Partial Pressure O2 90.5 83.0-108.0 mmHg Arterial Blood HCO3 20.3 L 21.0-28.0 mmol/L Arterial Blood Oxygen Saturation 96.9 94.0-98.0 % Arterial Blood Base Excess -1.9 -2.0-3.0 mmol/L Hemoglobin (Blood Gas) 16.5 H 12.0-16.0 g/dL Sodium (Blood Gas) 136 136-145 MMOL/L Bedside Potassium (Blood Gas) 4.0 3.4-4.5 MMOL/L Bedside Chloride (Blood Gas) 101 98-107 MMOL/L Bedside Glucose (Blood Gas) 168 H 65-95 MG/DL Bedside Ionized Calcium (Blood Gas) 1.16 1.15-1.33 MMOL/L Bedside Lactic Acid (Blood Gas) 0.99 H 0.36-0.75 MMOL/L Blood Gas Temperature 37.0 35.5-37.0 CELSIUS Blood Gas Vent Mode ROOM AIR ROOM AIR FiO2 21.0 % Blood Gas Specimen Comment LR GREYSON Whole Blood Ketones Quantitative 3.8 H 0.0-0.6 mmol/L Test 09/22/24 05:40 09/22/24 04:19 09/21/24 19:23 09/21/24 15:45 Range/Units Influenza Type A Antigen Negative For Type A NEGATIVE Influenza Type B Antigen Negative For Type B NEGATIVE SARS-CoV-2, RNA, NAAT POSITIVE SARS CoV-2 *A NEGATIVE White Blood Count 7.3 4.8-10.8 K/uL Red Blood Count 5.08 4.00-5.50 MIL/uL Hemoglobin 16.3 H 12.0-16.0 g/dL Hematocrit 46.2 36-48 % Mean Corpuscular Volume 90.9 79-99 fL Mean Corpuscular Hemoglobin 32.1 27.0-33.0 pg Mean Corpuscular Hemoglobin Concent 35.3 32.0-36.0 g/dL Red Cell Distribution Width 14.3 11.0-15.5 % Platelet Count 157 130-400 K/uL Mean Platelet Volume 11.3 H 7.5-10.5 fL Nucleated Red Blood Cells 0.0 0.0-0.19 % Blood Gas PEEP 5 cm H2O Phosphorus Level 4.1 2.5-4.9 mg/dL Magnesium Level 2.00 1.80-2.40 mg/dL Total Bilirubin 0.7 0.2-1.0 mg/dL Aspartate Amino Transf (AST/SGOT) 32 10-37 U/L Alanine Aminotransferase (ALT/SGPT) 30 12-78 U/L Alkaline Phosphatase 112 50-136 U/L Troponin I High Sensitivity 57 *H 4-50 ng/L B-Type Natriuretic Peptide 529 H 0-100 pg/mL Total Protein 7.2 6.0-8.3 g/dL Albumin 2.9 L 3.5-5.0 g/dL Ammonia < 10 L 11-32 umol/L Immature Granulocyte % (Auto) 0.6 0-1 % Neutrophils (%) (Auto) 70.2 40.0-77.0 % Lymphocytes (%) (Auto) 20.7 L 21.0-51.0 % Monocytes (%) (Auto) 6.4 3.0-13.0 % Eosinophils (%) (Auto) 1.4 0.0-8.0 % Basophils (%) (Auto) 0.7 0.0-5.0 % Neutrophils # (Auto) 5.1 1.8-7.7 K/uL Lymphocytes # (Auto) 1.5 1.0-4.8 K/uL Monocytes # (Auto) 0.5 0.1-1.0 K/uL Eosinophils # (Auto) 0.10 0.00-0.70 K/uL Basophils # (Auto) 0.05 0.00-0.20 K/uL Absolute Immature Granulocyte (auto 0.04 0-1 K/uL Prothrombin Time 10.1 9.6-11.6 SEC Prothromb Time International Ratio 0.95 0.85-1.15 Activated Partial Thromboplast Time 24.0 L 26.3-35.5 SEC Hemoglobin A1c 12.7 H 4.0-6.0 % Estimated Average Glucose (eAG) 318 H 70-126 mg/dL C-Reactive Protein, Quantitative 7.70 H 0.5-3.0 mg/L Procalcitonin < 0.05 L 0.05-0.5 ng/mL Thyroid Stimulating Hormone (TSH) 3.71 # 0.36-3.74 uIU/mL Test 09/21/24 15:40 Range/Units Urine Color LIGHT-YELLOW YELLOW Urine Appearance CLEAR CLEAR Urine pH 6.0 5.0-8.0 Urine Specific [place] 1.022 1.001-1.031 Urine Protein 50 H NEGATIVE mg/dL Urine Glucose (UA) >=1000 H NEGATIVE mg/dL Urine Ketones NEGATIVE NEGATIVE mg/dL Urine Occult Blood NEGATIVE NEGATIVE Urine Nitrate NEGATIVE NEGATIVE Urine Bilirubin NEGATIVE NEGATIVE mg/dL Urine Urobilinogen 0.2 0.2-1.0 mg/dL Urine Leukocyte Esterase NEGATIVE NEGATIVE Lui/uL Urine RBC 0-1 0-1 /HPF Urine WBC 0-1 0-1 /HPF Urine Bacteria None None Seen /HPF Urine Opiates Screen NEGATIVE NEGATIVE Urine Barbiturates Screen NEGATIVE NEGATIVE Urine Phencyclidine Screen NEGATIVE NEGATIVE Urine Amphetamines Screen NEGATIVE NEGATIVE Urine Benzodiazepines Screen NEGATIVE NEGATIVE Urine Cocaine Screen NEGATIVE NEGATIVE Urine Marijuana (THC) Screen POSITIVE H NEGATIVE Current Medications Medications (Trade) Dose Ordered Sig/Bob Route PRN Reason Start Time Stop Time Status Last Admin Dose Admin Acetaminophen (TYLenol 500MG TAB) 500 mg Q6H PRN PO MILD PAIN (1-3) 09/21/24 17:30 10/21/24 17:29 09/22/24 08:21 500 MG Acetaminophen (acetaMINOPHEN) 1,000 mg ONCE IVPB 09/22/24 09:00 09/22/24 09:35 DC Apixaban (EliquIS) 5 mg BID PO 09/22/24 09:00 09/22/24 08:55 DC 09/22/24 08:21 5 MG Aspirin (Aspirin 81mg Chew Tab) 81 mg DAILY PO 09/22/24 09:00 10/22/24 08:59 09/22/24 08:20 81 MG Atorvastatin Calcium (LIPItor 40MG) 80 mg DAILY PO 09/22/24 09:00 10/22/24 08:59 09/22/24 08:21 80 MG Ceftriaxone Sodium (Rocephin 2gm Inj) 2 gm Q24H IVPB 09/21/24 17:30 10/01/24 17:29 09/22/24 16:44 2 GM Dexamethasone (DeCADron 4 mg TAB) 6 mg DAILY PO 09/22/24 09:00 09/22/24 08:49 DC Dexamethasone Sodium Phosphate (dexaMETHasone 4MG/ML 1ML VIAL) 6 mg DAILY IVP 09/22/24 09:00 10/02/24 08:59 09/22/24 10:05 6 MG Dextrose (D50w) 50 ml AD PRN IV HYPOGLYCEMIA PROTOCOL 09/22/24 03:30 10/22/24 03:29 Dextrose/Sodium Chloride 1,000 ml @ 0 mls/hr AD IV 09/22/24 09:30 10/22/24 09:29 Docusate Sodium (COLace 100MG CAP) 100 mg BID PRN PO c 09/22/24 03:30 10/22/24 03:29 Doxycycline Hyclate 250 ml @ 125 mls/hr BID IV 09/22/24 09:00 10/02/24 08:59 09/22/24 10:08 125 MLS/HR Dronedarone (Multaq) 400 mg BID PO 09/22/24 09:00 10/22/24 08:59 09/22/24 08:20 400 MG Enoxaparin Sodium (Lovenox (Pharmacy To Dose)) 1 unit Q12H SQ 09/22/24 09:00 09/22/24 08:55 DC Enoxaparin Sodium (Lovenox) 90 mg BID SQ 09/22/24 21:00 10/22/24 20:59 Famotidine (Pepcid 20mg Vial) 20 mg BID IV 09/21/24 21:00 10/21/24 20:59 09/22/24 08:32 20 MG Glucagon (Glucagon 1mg Kit) 1 mg AD PRN IM HYPOGLYCEMIA PROTOCOL 09/22/24 03:30 10/22/24 03:29 Insulin Glargine (LANtus 100 UNITS/ML 10 ML VIAL) 5 units DAILY SQ 09/23/24 09:00 10/23/24 08:59 Insulin Human Regular (humuLIN R 100 UNIT/ML 3ML) INSULIN SLIDING SCAL... ACHS SQ 09/21/24 21:00 09/22/24 10:40 DC Insulin Human Regular 100 unit/ Sodium Chloride 101 ml @ 0 mls/hr PROTOCOL IV 09/22/24 09:30 10/22/24 09:29 09/22/24 10:24 9.25 MLS/HR Labetalol HCl (TRANdate 20MG SYG) 10 mg Q2H PRN IV SBP GREATER THAN 180 09/22/24 03:30 09/22/24 03:36 DC Labetalol HCl (TRANdate 20MG SYG) 10 mg Q2H PRN IV SBP GREATER THAN 160 09/22/24 05:30 10/22/24 05:29 Lactulose (Constulose 20gm/ 30ml Udcup) 20 gm Q6H PRN PO CONSTIPATION 09/22/24 03:30 10/22/24 03:29 Leptospermum Honey (TOPSECney) apply to right lower leg DAILY TP 09/23/24 09:00 10/23/24 08:59 Lisinopril (Prinivil 10mg) 10 mg DAILY PO 09/22/24 09:00 10/22/24 08:59 09/22/24 08:20 10 MG Magnesium Sulfate 50 ml @ 0 mls/hr PROTOCOL IV 09/22/24 09:30 09/22/24 09:32 DC Magnesium Sulfate 50 ml @ 0 mls/hr PROTOCOL PRN IV MAGNESIUM PROTOCOL 09/22/24 03:30 10/22/24 03:29 Metoprolol Succinate (TopROL XL) 50 mg BID PO 09/22/24 09:00 10/22/24 08:59 09/22/24 08:20 50 MG Nicardipine HCl 25 mg/Sodium Chloride 250 ml @ 0 mls/hr PROTOCOL IV 09/21/24 17:00 09/22/24 09:11 DC 09/21/24 17:01 50 MLS/HR Nitroglycerin (Nitrostat) 0.4 mg AD PRN SL CHEST PAIN 09/22/24 04:30 10/22/24 04:29 Ondansetron HCl (zoFRAN 4MG INJ) 4 mg Q6H PRN IVP NAUSEA/VOMITING 09/22/24 03:30 10/22/24 03:29 Potassium Chloride 20 meq/ Sodium Chloride 1,010 ml @ 0 mls/hr PROTOCOL IV 09/22/24 09:30 10/22/24 09:29 Potassium Chloride/Dextrose/ Sod Cl 1,000 ml @ 0 mls/hr AD IV 09/22/24 09:30 09/22/24 12:47 DC 09/22/24 10:26 150 MLS/HR Potassium Chloride/Dextrose/ Sod Cl 1,000 ml @ 0 mls/hr AD IV 09/22/24 13:00 10/22/24 12:59 Potassium Chloride 100 ml @ 100 mls/hr AD PRN IV POTASSIUM PROTOCOL 09/22/24 03:30 10/22/24 03:29 Potassium Chloride (K-Dur/Klor-Con 20meq) 20 meq AD PRN PO POTASSIUM PROTOCOL 09/22/24 03:30 10/22/24 03:29 Potassium Chloride (KCl 10% Elixir 20meq/15ml) 20 meq AD PRN PO POTASSIUM PROTOCOL 09/22/24 03:30 10/22/24 03:29 09/22/24 16:44 20 MEQ Sodium Chloride 1,000 ml @ 200 mls/hr PROTOCOL IV 09/22/24 09:30 10/22/24 09:29 Torsemide (Demadex) 40 mg DAILY PO 09/22/24 09:00 10/22/24 08:59 09/22/24 08:20 40 MG DIAGNOSTICS / RADIOLOGY: PATIENT: KRISTIN SALCIDO MR#: [id number] : 1950 SEX: F AGE: 74 LOCATION: [facility] ORDER 08 STATUS: REG ER HOSPITAL REPORT#: [id number] SERVICE 07 REASON: cp ORDERING PHYSICIAN: MARY RAINES MD PROCEDURE: CXR1VW - CHEST 1VW EXAM: XR Chest, 2 Views. CLINICAL HISTORY: 76-year-old female with palpitations. COMPARISON: 09/20/2024, 4:11 pm FINDINGS: LUNGS: The lungs are clear. No consolidation. PLEURAL SPACES: No pleural effusion or pneumothorax. HEART: The heart size is normal. BONES: No acute osseous abnormality. IMPRESSION: 1. No acute cardiopulmonary pathology. /[place] DICTATED BY: ELLEN BRENNAN MD DATE: 09/21/241717 ELECTRONICALLY SIGNED BY: ELLEN BRENNAN MD DATE: 09/21/241717 PATIENT: KRISTIN SALCIDO MR#: [id number] : 1950 SEX: F AGE: 74 LOCATION: [facility] ORDER 08 STATUS: REG ER REPORT#: [id number] SERVICE [id number] REASON: headache ORDERING PHYSICIAN: MARY RAINES MD PROCEDURE: HEAD WO - CT HEAD/BRAIN W/O CONTRAST EXAM: CT Head Without IV contrast. CLINICAL HISTORY: headache TECHNIQUE: Axial computed tomography images of the head/brain without intravenous contrast. COMPARISON: 05/20/2023 FINDINGS: BRAIN: No acute bleed or infarct. Stable chronic ischemic and atrophic changes. VENTRICLES: No hydrocephalus. ORBITS: The orbits are unremarkable. SINUSES AND MASTOIDS: The paranasal sinuses and mastoid air cells are clear. BONES: No fracture. SOFT TISSUES: Unremarkable. IMPRESSION: No acute bleed or infarct. Stable chronic ischemic and atrophic changes. /[place] DICTATED BY: ASA PETTIT MD DATE: 09/21/241655 ELECTRONICALLY SIGNED BY: ASA PETTIT MD DATE: 09/21/241655 PATIENT: KRISTIN SALCIDO MR#: [id number] : 1950 SEX: F AGE: 74 LOCATION: [facility] ORDER STATUS: ADM IN REPORT#: [id number] SERVICE 1709 REASON: abdominal pain ORDERING PHYSICIAN: CRISTOBAL MACKENZIE MD PROCEDURE: ABD PEL WO - CT ABDOMEN/PELVIS W/O CONTRAST EXAM: CT Abdomen and Pelvis Without IV contrast CLINICAL HISTORY: abdominal pain TECHNIQUE: Axial computed tomography images of the abdomen and pelvis without intravenous contrast. CONTRAST: No IV contrast. COMPARISON: US abdomendated 09/25/23 9 FINDINGS: LUNG BASES: Minimal pleural effusion noted in the left lung base. Lungs appear congested. No focal lesions. Mild to moderate coronary artery calcifications. LIVER: Unremarkable. GALLBLADDER AND BILE DUCTS: The gallbladder contains a few dependent calculi, with no features of cholecystitis. No extra biliary obstruction. PANCREAS: Unremarkable. SPLEEN: Unremarkable. ADRENAL GLANDS: Unremarkable. KIDNEYS, URETERS, AND BLADDER: The kidneys appear within normal limits. There is no hydronephrosis or hydroureter. No urinary calculi are seen. Thick-walled urinary bladder which may be due to underdistention or cystitis. Acosta catheter in place. STOMACH AND BOWEL: Unremarkable appearance of the stomach and bowel. No evidence of bowel obstruction. No evidence suggesting enteritis or colitis.Scattered colonic diverticulae along the distal colon. APPENDIX: No evidence of acute appendicitis on CT examination. PERITONEUM: No free fluid. No free air. A fat-containing umbilical hernia with a hernial neck measuring 2.4 cm in width. LYMPH NODES: No lymphadenopathy is evident. REPRODUCTIVE: Unremarkable as visualised. VASCULATURE: No evidence of abdominal aortic aneurysm. BONES: No aggressive appearing osseous lesion. No acute osseous pathology . IMPRESSION: Thick-walled urinary bladder which may be due to underdistention or cystitis. Cholelithiasis with no features of cholecystitis. No urinary calculi. No hydronephrosis. No bowel obstruction or inflammation. Colonic diverticulosis. No features of diverticulitis. A fat-containing umbilical hernia. /[place] DICTATED BY: ASA PETTIT MD DATE: 09/21/242125 ELECTRONICALLY SIGNED BY: ASA PETTIT MD DATE: 09/21/242125 PATIENT: KRISTIN SALCIDO MR#: [id number] : 1950 SEX: F AGE: 74 LOCATION: [facility] ORDER STATUS: ADM IN REPORT#: [id number] SERVICE 9 REASON: Pneumonia ORDERING PHYSICIAN: CROW KENT MD PROCEDURE: CXR1VW - CHEST 1VW EXAM: CR Chest, 1 View. CLINICAL HISTORY: Pneumonia COMPARISON: Radiograph dated September 21, 2024 FINDINGS: Interval improved aeration throughout both lungs. Mild residual bilateral perihilar and right basilar airspace disease. No pleural effusion or pneumothorax. Heart size is stable. Interval decrease pulmonary vascular congestion. IMPRESSION: 1. Improved but persistent bilateral perihilar and right basilar airspace disease, consistent with improving pneumonia. /[place] DICTATED BY: MAGDA PINON Jr., MD DATE: 09/22/241615 ELECTRONICALLY SIGNED BY: MAGDA PINON Jr., MD DATE: 09/22/241615 PATIENT: KRISTIN SALCIDO MR#: [id number] : 1950 SEX: F AGE: 74 LOCATION: [facility] ORDER 09 STATUS: ADM IN REPORT#: [id number] SERVICE 0859 REASON: AMS ORDERING PHYSICIAN: YAHAIRA FIORE PROCEDURE: HEAD WO - CT HEAD/BRAIN W/O CONTRAST Exam: NONCONTRAST CT BRAIN REASON: AMS. COMPARISON: None. TECHNIQUE: Images are obtained from vertex to the skull base. The exam was performed without IV contrast. FINDINGS: There is normal appearing brain parenchyma. There are no focal mass lesions. There is is no evidence of intracranial hemorrhage or acute stroke. Ventricles and sulci appear normal. Posterior fossa and brainstem structures are unremarkable. Paranasal sinuses and remaining extracranial soft tissues appear normal as well.There is global atrophy with periventricular ischemic white matter changes. IMPRESSION: 1. No acute intracranial process 2. Global atrophy with moderately severe periventricular ischemic white matter changes. CT was performed with one or more following dose reduction techniques: automated exposure control, adjustment of the mA and kv according to patient's size, or use of a iterative reconstruction technique. DICTATED BY: TENA GUERRERO MD DATE: 09/22/24 1151 ELECTRONICALLY SIGNED BY: TENA GUERRERO MD DATE: 09/22/24 1155 ASSESSMENT: AMS secondary to metabolic versus toxic encephalopathy Hypertensive emergency Mild troponin elevation likely in setting of type 2 [place] Substance use with positive marijuana Hypertension Hyperlipidemia History of atrial fibrillation on Eliquis History of smoking Right lower extremity wound Obesity BMI 38.5 Possible acute on chronic CHF exacerbation rule out PLAN: AMS secondary to metabolic versus toxic encephalopathy Patient has AMS. Patient is COVID positive. Started on dexamethasone. CRP is 7.7, procalcitonin is < 0.05, magnesium is 2.0, phosphorus 4.1, troponin is 62 then increased from 54, ammonia is < 10. Started Lasix. Repeat chest xray showed improved but persistent bilateral perihilar and right basilar airspace disease, consistent with improving pneumonia. Started on ceftriaxone (day1 ) and doxycycline (day 1) for atypical community- acquired pneumonia CT head was performed that showed no acute bleed or infarct and stable chronic ischemic and atrophic changes. Neurology is consulted. Ordered blood culture. No growth after24 hours Abdominal CT performed. MRI brain ordered Possible acute on chronic CHF exacerbation BNP raised to 529 from 282 Ordered echo. Hypertension Patient came with a BP of 170/85. She was started on nicardipine, lisinopril and labetalol. Today her BP is 110/59. Continued on lisinopril. Monitor BP Hyperlipidemia Continued on atorvastatin Urinalysis Urinalysis showed glucose> 1000 Started on insulin glargine PHYSICIAN RESIDENT STATEMENT I was present with the resident during the History and Physical exam and I have reviewed the resident's note. This case was discussed with the resident and I agree with the history, physical exam and medical decision making as documented. Additions/exceptions/observations were directly added to the notes. Mandeep Roa MD, SYED M MD Sep 22, 2024 18:13
[2024-09-22] MEDS: ENOXAPARIN SODIUM 100 MG/1 ML SQ SCH (20:09)
[2024-09-22 20:32] LABS: CREATININE 1.0 mg/dL (0.5-1.0); GLOMERULAR FILTR. RATE CALC 59.0 mL/min (>90); GLUCOSE,RANDOM 203.0 mg/dL (70-105); SODIUM SERUM 135.0 mmol/L (136-145); UREA NITROGEN, BLOOD 25.0 mg/dL (7-18)
[2024-09-23] VITALS (15 sets, daily range): BP systolic 97–153; BP diastolic 50–86; PULSE 55–83; RESP 12–22; TEMP 97.4–98.3; O2SAT 92–95
--- NOTE | 2024-09-23 01:27 | NUR ---
UNABLE TO TAKE CT SCAN AT THIS TIME PER HIGH SPEED PRINTER OPERATOR, WILL ATTEMPT AGAIN AT ANOTHER TIME, PT ALERT, ORIENTED, ON APPARENT DISTRESS NOTED.
[2024-09-23] MEDS ORDERED: IOHEXOL-350 75 ML VIAL IV ONE (02:53)
[2024-09-23 04:02] LABS: IMMATURE GRANULOCYTE ABSOLUTE 0.05 K/uL (0-1); NUCLEATED RED BLOOD CELLS 0.0 % (0.0-0.19); PLATELET COUNT (AUTO) 169 K/uL (130-400); RED BLOOD CELL COUNT(AUTO) 5.08 MIL/uL (4.00-5.50); RED CELL DISTRIBUTION WIDTH 14.3 % (11.0-15.5); WHITE BLOOD COUNT (AUTO) 10.0 K/uL (4.8-10.8)
[2024-09-23 04:17] LABS: CREATININE 1.1 mg/dL (0.5-1.0); GLOMERULAR FILTR. RATE CALC 52.0 mL/min (>90); GLUCOSE,RANDOM 236.0 mg/dL (70-105); SODIUM SERUM 135.0 mmol/L (136-145); UREA NITROGEN, BLOOD 27.0 mg/dL (7-18)
--- NOTE | 2024-09-23 08:57 | PN ---
[facility] PROGRESS NOTE Date Patient Seen: Sep 23, 2024 Time of Visit: 08:57 Supervising Physician: David Carpio MD Primary Care Physician: Attending providers: [facility] hospitalist team Outpatient Specialists: Inpatient Consults: [facility], critical Care team PROBLEM LIST: AMS, metabolic vs toxic encephalopathy, Resolved CT head neg for bleed Compensated metabolic acidosis, POA Ketones elevated 2/2 hyperglycemia and Jardiance POA requiring insulin gtt resolved Hypertensive emergency POA, Resolved Mild troponin elevation likely in setting of type 2 UT Substance use with positive marijuana Fluid overload, BNP 282, noncompliance with diuretic Erythrocytosis Cholelithiasis without evidence of cholecystitis on CT Diabetes mellitus with hyperglycemia, A1c 12.7 Elevated CRP Proteinuria and glucosuria Hypertension Hyperlipidemia Atrial fibrillation on Eliquis History of smoking Right lower extremity wound Obesity BMI 38.5 INTERVAL HISTORY: Date of admission: 09/21/24 Hospital Day: 2. ICU Day: 2. -stable to downgrade to medical surgical with telemetry. Code status: Full code Lines: Peripheral IV Nutrition: Consistent carb Isolation: COVID isolation Overnight events: No acute events overnight . Remained Hemodynamically stable, blood pressure improved. Max blood pressure of 151/86. Off Cardene drip. Anion gap 10, has closed. Insulin drip discontinued started ISS Q a.c. and HS. Lantus 10 units subQ b.i.d.. Discontinue Jardiance. Instructed patient and daughter to discontinue from home meds. Creatinine 1.1 GFR of52 similar to yesterday glucose of 236 mg/dL. BNP of 167 [id number] chloride of 100. Other laboratory unremarkable. Pending CTA of chest results. Tmax of 98.2 , she has remained afebrile. [Currently at room air saturating 95%. No apparent respiratory distress. Urine output 2.4 L in the last24 hours with a balance of-323 mL. We will continue daily weights. Subjective complaints: [Patient's mental status has improved from yesterday. She is awake alert and oriented x3. cooperative with medical treatment. Denies any chest pain palpitations or shortness for breath. There is no focal weakness. Patient reports dry cough. Family updated. Spoke with patient's daughter. Reviewed clinical findings and updated with plan of care. Answered all her questions. REVIEW OF SYSTEMS: General: No malaise or fever. Neurological: No fainting episodes or seizures. HEENT: No nasal congestion or nasal secretion. Respiratory: + cough. Cardiac: No chest pain or palpitations. Gastrointestinal: No vomiting or diarrhea. Genitourinary: No dysuria hematuria. Skin: No rashes or lesions. Hematological: No bruises or bleeding. Musculoskeletal: No joint pains or arthralgias. Psychiatric: No depression or panic attacks. PHYSICAL EXAM: GENERAL: Awake alert and oriented x3. No focal weakness. HEENT: EOMI, Sclera non icteric, moist mucosa NECK: Supple, no JVD, trachea midline LUNGS: Clear breath sounds bilaterally. No wheezes HEART: Regular rate and rhythm. Normal S1 and S2, without murmurs ABD: Abdomen soft, obese, nontender. Bowel sounds present EXT: No clubbing cyanosis or edema NEURO: Alert and oriented to person, follows commands no focal weakness. GCS of 15. Vital Signs (last 8hr) Date Time Temp Pulse Resp B/P (MAP) Pulse Ox O2 Delivery O2 Flow Rate FiO2 09/23/24 05:41 63 19 125/64 93 Room Air 09/23/24 04:41 97.7 62 22 124/63 93 Room Air 09/23/24 04:00 92 Room Air* 0 21 09/23/24 03:41 61 17 127/59 94 Room Air 09/23/24 02:54 64 12 139/69 97 Room Air 09/23/24 01:41 66 18 129/78 98 Room Air LABS: Hematology Labs: Test 09/23/24 03:51 Range/Units White Blood Count 10.0 # 4.8-10.8 K/uL Red Blood Count 5.08 4.00-5.50 MIL/uL Hemoglobin 16.3 H 12.0-16.0 g/dL Hematocrit 46.9 36-48 % Mean Corpuscular Volume 92.3 79-99 fL Mean Corpuscular Hemoglobin 32.1 27.0-33.0 pg Mean Corpuscular Hemoglobin Concent 34.8 32.0-36.0 g/dL Red Cell Distribution Width 14.3 11.0-15.5 % Platelet Count 169 130-400 K/uL Mean Platelet Volume 10.0 7.5-10.5 fL Immature Granulocyte % (Auto) 0.5 0-1 % Neutrophils (%) (Auto) 83.7 H 40.0-77.0 % Lymphocytes (%) (Auto) 10.8 L 21.0-51.0 % Monocytes (%) (Auto) 4.9 3.0-13.0 % Eosinophils (%) (Auto) 0.0 0.0-8.0 % Basophils (%) (Auto) 0.1 0.0-5.0 % Neutrophils # (Auto) 8.4 H 1.8-7.7 K/uL Lymphocytes # (Auto) 1.1 1.0-4.8 K/uL Monocytes # (Auto) 0.5 0.1-1.0 K/uL Eosinophils # (Auto) 0.00 0.00-0.70 K/uL Basophils # (Auto) 0.01 0.00-0.20 K/uL Absolute Immature Granulocyte (auto 0.05 0-1 K/uL Nucleated Red Blood Cells 0.0 0.0-0.19 % Chemistry Labs: Test 09/23/24 03:51 09/22/24 19:51 09/22/24 08:51 09/22/24 04:19 Range/Units Sodium Level 135 L 136-145 mmol/L Potassium Level 4.1 3.5-5.1 mmol/L Chloride Level 100 L 101-111 mmol/L Carbon Dioxide Level 25 21-32 mmol/L Blood Urea Nitrogen 27 H 7-18 mg/dL Creatinine 1.1 H 0.5-1.0 mg/dL Glomerular Filtration Rate Calc 52 >90 mL/min Random Glucose 236 H 70-105 mg/dL Total Calcium 8.3 L 8.5-10.1 mg/dL Magnesium Level 1.90 1.80-2.40 mg/dL Whole Blood Glucose 185 H 70-110 MG/DL Whole Blood Ketones Quantitative 3.8 H 0.0-0.6 mmol/L Phosphorus Level 4.1 2.5-4.9 mg/dL Total Bilirubin 0.7 0.2-1.0 mg/dL Aspartate Amino Transf (AST/SGOT) 32 10-37 U/L Alanine Aminotransferase (ALT/SGPT) 30 12-78 U/L Alkaline Phosphatase 112 50-136 U/L Troponin I High Sensitivity 57 *H 4-50 ng/L B-Type Natriuretic Peptide 529 H 0-100 pg/mL Total Protein 7.2 6.0-8.3 g/dL Albumin 2.9 L 3.5-5.0 g/dL Test 09/21/24 19:23 09/21/24 15:45 Range/Units Ammonia < 10 L 11-32 umol/L Hemoglobin A1c 12.7 H 4.0-6.0 % Estimated Average Glucose (eAG) 318 H 70-126 mg/dL C-Reactive Protein, Quantitative 7.70 H 0.5-3.0 mg/L Procalcitonin < 0.05 L 0.05-0.5 ng/mL Thyroid Stimulating Hormone (TSH) 3.71 # 0.36-3.74 uIU/mL Coagulation Labs: Test 09/21/24 15:45 Range/Units Prothrombin Time 10.1 9.6-11.6 SEC Prothromb Time International Ratio 0.95 0.85-1.15 Activated Partial Thromboplast Time 24.0 L 26.3-35.5 SEC DIAGNOSTICS / RADIOLOGY RESULTS: [ ] PLAN Patient is pending an MRI Stable to downgrade to medical floor with telemetry Discontinue insulin drip and add ISS q.a.c. and HS Add Lantus 10 units subQ b.i.d. Discontinue Jardiance. Instructed patient and daughter another take Jardiance again and discontinued from home medications. Continue Rocephin and add doxycycline for atypical community-acquired pneumonia empirically Sputum culture pending Decadron due to hypoxemia NEURO: Minimize central acting medications as possible. Fall Precautions. Well lighted room through the day and minimize interruptions through the night to prevent acute delirium. PULMONARY: Supplemental 02 as needed Titrate Fio2 to keep Spo2 > or = 90% DuoNebs and CPT as needed IS hourly while awake for pulmonary hygiene Out of bed to chair as tolerated VAP Bundle CARDIOVASCULAR: Follow hemodynamics. Titrate vasopressor to keep MAP >65 or systolic blood pressure >95mmHg GI & NUTRITION: Continue nutritional support Aspirations precautions Prokinetic agents and laxatives as needed KIDNEYS & ELECTROLYTES: Strict monitoring of intake and output Daily weights Avoid nephrotoxic agents Monitor electrolytes and replace as needed Goal urine output of 30mL/hr or 0.5mL/kg/hr ENDOCRINE: Maintain blood glucose between 100-180 at all times. Insulin sliding scale for blood glucose management INFECTIOUS DISEASE: Trend temperature. Villanueva-culture if febrile. HEMATOLOGY & COAGULATION: Monitor H&H. Keep Hgb > 7 Transfuse 1 unit of PRBC for Hgb < 7 Transfuse 1 pack of platelets of platelets < 20, 000 Watch for any signs and symptoms of bleeding SKIN: Pressure ulcer prevention per facility protocol Rehab: PT/OT Code Status: Full Resuscitation Disposition: Med surge with telemetry Critical care time This patient required multiple bedside visits to manage the patient, review blood gases, coordinate with respiratory, nurses, talk to [Specialist] review radiology exams, talk to the family members and discuss advanced directives. I personally spent [45] minutes of critical care time in treatment of this patient. This includes patient management, time at bedside, time reviewing tests, labs, appropriate images and studies, documentation, and patient care coordination. This time excludes separately billable procedures. ATTESTATION BY PHYSICIAN The patient has been seen and evaluated, the case has been discussed with the PERFORATOR, I agree with the clinical findings and plan of care. David Carpio MD, [facility] Sep 23, 2024 08:57
[2024-09-23] MEDS: MAGNESIUM 2GM PREMIX 50ML 50 ML IV PRN (09:07)
--- NOTE | 2024-09-23 09:31 | PN ---
[facility] PROGRESS NOTE Date of Service: Sep 23, 2024 Time of Service: 09:03 SUBJECTIVE: 74-year-old female with a past medical history of hypertension, hyperlipidemia, diabetes mellitus type 2, history of tobacco, history of atrial fibrillation on anticoagulation with Eliquis use who presented to the hospital secondary to confusion. History is mostly obtained from patient's daughter was present at bedside. Patient has since yesterday has been less responsive at home. Per daughter she has noted that patient has been confused. Patient when seen at bedside is morning about pain. She does not answer questions and does not follow conversations. Per daughter patient was complaining of pain in the lower back area. She denied any falls, syncopal episode. She also has a wound in the right lower extremity which is currently dressed and is being followed by wound care. Daughter denied any fevers, chills, nausea, vomiting at home. She has not been able to take her home medications. She took her last dose of Eliquis two days ago. History is fairly limited secondary to patient's confusion. Labs were notable for white count of 7.2, hemoglobin was 17.6, platelet count was 154 K, sodium was 138, potassium was 3.5, creatinine is 0.7, blood glucose was 199 Blood pressure on presentation was 207/76, heart rate was 59, respiratory rate was 21, patient was saturating 99% on room 09/22/2024: The patient was confused, not oriented. The daughter told that the patient was irritable with a past 5 days but yesterday morning after the breakfast, the patient became confused and presented with altered mental status. She has never had an episode like this in the past. On admission the patient's blood pressure was 1 70 x with labetalol, nicardipine, nitroglycerin and lisinopril were started. Today her blood pressure is 110/59. Patient's chest x-ray persistent bilateral perihilar and right basilar airspace disease. The patient is COVID positive and was started on dexamethasone along with Rocephin and doxycycline. CT head is negative for any active bleed. An MRI is planned along with urology consult. Patient is urine showed a protein of > 50 and glucose > 1000. 09/23/2024: The patient is awake , alert, oriented and slightly confused. The patient could tell how many children does she have, name her grand kids, name her children. She did complain of any chest pain, shortness of breath or cough. Patient reports having a wound on her right leg, currently bandaged. She states that she has a history of bullous pemphigoid. She had a CT chest and echo done yesterday and awaiting results. Her MRI is planned for today. Her blood culture shows no growth after 24 hrs. REVIEW OF SYSTEMS Unable to obtain since patient is confused PHYSICAL EXAM GENERAL APPEARANCE: Patient is alert and awake HEENT: Face is symmetric. Pupils are equal and reactive. Extraocular movements are intact. NECK: Supple. No JVD. No thyromegaly. No submental, submandibular, pre- /postauricular, occipital or supraclavicular lymphadenopathy. CHEST: Normal chest expansion. No Telemetry. LUNGS: Absence of any rales, rhonchi or any wheezing. CARDIOVASCULAR: Regular. S1 and S2 normal. No appreciable rubs, murmurs or gallops. : Deferred. No [place]. EXTREMITIES: Wound in the right lower extremity which is currently dressed SKIN: No skin breakdown. Vital Signs (last 8hr) Date Time Temp Pulse Resp B/P (MAP) Pulse Ox O2 Delivery O2 Flow Rate FiO2 09/23/24 05:41 63 19 125/64 93 Room Air 09/23/24 04:41 97.7 62 22 124/63 93 Room Air 09/23/24 04:00 92 Room Air* 0 21 09/23/24 03:41 61 17 127/59 94 Room Air 09/23/24 02:54 64 12 139/69 97 Room Air 09/23/24 01:41 66 18 129/78 98 Room Air LABS: Laboratory: Test 09/23/24 03:51 09/22/24 19:51 09/22/24 18:30 09/22/24 09:15 Range/Units White Blood Count 10.0 # 4.8-10.8 K/uL Red Blood Count 5.08 4.00-5.50 MIL/uL Hemoglobin 16.3 H 12.0-16.0 g/dL Hematocrit 46.9 36-48 % Mean Corpuscular Volume 92.3 79-99 fL Mean Corpuscular Hemoglobin 32.1 27.0-33.0 pg Mean Corpuscular Hemoglobin Concent 34.8 32.0-36.0 g/dL Red Cell Distribution Width 14.3 11.0-15.5 % Platelet Count 169 130-400 K/uL Mean Platelet Volume 10.0 7.5-10.5 fL Immature Granulocyte % (Auto) 0.5 0-1 % Neutrophils (%) (Auto) 83.7 H 40.0-77.0 % Lymphocytes (%) (Auto) 10.8 L 21.0-51.0 % Monocytes (%) (Auto) 4.9 3.0-13.0 % Eosinophils (%) (Auto) 0.0 0.0-8.0 % Basophils (%) (Auto) 0.1 0.0-5.0 % Neutrophils # (Auto) 8.4 H 1.8-7.7 K/uL Lymphocytes # (Auto) 1.1 1.0-4.8 K/uL Monocytes # (Auto) 0.5 0.1-1.0 K/uL Eosinophils # (Auto) 0.00 0.00-0.70 K/uL Basophils # (Auto) 0.01 0.00-0.20 K/uL Absolute Immature Granulocyte (auto 0.05 0-1 K/uL Nucleated Red Blood Cells 0.0 0.0-0.19 % Sodium Level 135 L 136-145 mmol/L Potassium Level 4.1 3.5-5.1 mmol/L Chloride Level 100 L 101-111 mmol/L Carbon Dioxide Level 25 21-32 mmol/L Blood Urea Nitrogen 27 H 7-18 mg/dL Creatinine 1.1 H 0.5-1.0 mg/dL Glomerular Filtration Rate Calc 52 >90 mL/min Random Glucose 236 H 70-105 mg/dL Total Calcium 8.3 L 8.5-10.1 mg/dL Magnesium Level 1.90 1.80-2.40 mg/dL Whole Blood Glucose 185 H 70-110 MG/DL Group A Streptococcus Rapid negative NEGATIVE Blood Gas Specimen Type Arterial Arterial Blood pH 7.463 H 7.350-7.450 Arterial Blood Partial Pressure CO2 29 L 32-45 mmHg Arterial Blood Partial Pressure O2 90.5 83.0-108.0 mmHg Arterial Blood HCO3 20.3 L 21.0-28.0 mmol/L Arterial Blood Oxygen Saturation 96.9 94.0-98.0 % Arterial Blood Base Excess -1.9 -2.0-3.0 mmol/L Hemoglobin (Blood Gas) 16.5 H 12.0-16.0 g/dL Sodium (Blood Gas) 136 136-145 MMOL/L Bedside Potassium (Blood Gas) 4.0 3.4-4.5 MMOL/L Bedside Chloride (Blood Gas) 101 98-107 MMOL/L Bedside Glucose (Blood Gas) 168 H 65-95 MG/DL Bedside Ionized Calcium (Blood Gas) 1.16 1.15-1.33 MMOL/L Bedside Lactic Acid (Blood Gas) 0.99 H 0.36-0.75 MMOL/L Blood Gas Temperature 37.0 35.5-37.0 CELSIUS Blood Gas Vent Mode ROOM AIR ROOM AIR FiO2 21.0 % Blood Gas Specimen Comment LR GREYSON Test 09/22/24 08:51 09/22/24 05:40 09/22/24 04:19 09/21/24 19:23 Range/Units Whole Blood Ketones Quantitative 3.8 H 0.0-0.6 mmol/L Influenza Type A Antigen Negative For Type A NEGATIVE Influenza Type B Antigen Negative For Type B NEGATIVE SARS-CoV-2, RNA, NAAT POSITIVE SARS CoV-2 *A NEGATIVE Blood Gas PEEP 5 cm H2O Phosphorus Level 4.1 2.5-4.9 mg/dL Total Bilirubin 0.7 0.2-1.0 mg/dL Aspartate Amino Transf (AST/SGOT) 32 10-37 U/L Alanine Aminotransferase (ALT/SGPT) 30 12-78 U/L Alkaline Phosphatase 112 50-136 U/L Troponin I High Sensitivity 57 *H 4-50 ng/L B-Type Natriuretic Peptide 529 H 0-100 pg/mL Total Protein 7.2 6.0-8.3 g/dL Albumin 2.9 L 3.5-5.0 g/dL Ammonia < 10 L 11-32 umol/L Test 09/21/24 15:45 09/21/24 15:40 Range/Units Prothrombin Time 10.1 9.6-11.6 SEC Prothromb Time International Ratio 0.95 0.85-1.15 Activated Partial Thromboplast Time 24.0 L 26.3-35.5 SEC Hemoglobin A1c 12.7 H 4.0-6.0 % Estimated Average Glucose (eAG) 318 H 70-126 mg/dL C-Reactive Protein, Quantitative 7.70 H 0.5-3.0 mg/L Procalcitonin < 0.05 L 0.05-0.5 ng/mL Thyroid Stimulating Hormone (TSH) 3.71 # 0.36-3.74 uIU/mL Urine Color LIGHT-YELLOW YELLOW Urine Appearance CLEAR CLEAR Urine pH 6.0 5.0-8.0 Urine Specific [place] 1.022 1.001-1.031 Urine Protein 50 H NEGATIVE mg/dL Urine Glucose (UA) >=1000 H NEGATIVE mg/dL Urine Ketones NEGATIVE NEGATIVE mg/dL Urine Occult Blood NEGATIVE NEGATIVE Urine Nitrate NEGATIVE NEGATIVE Urine Bilirubin NEGATIVE NEGATIVE mg/dL Urine Urobilinogen 0.2 0.2-1.0 mg/dL Urine Leukocyte Esterase NEGATIVE NEGATIVE Lui/uL Urine RBC 0-1 0-1 /HPF Urine WBC 0-1 0-1 /HPF Urine Bacteria None None Seen /HPF Urine Opiates Screen NEGATIVE NEGATIVE Urine Barbiturates Screen NEGATIVE NEGATIVE Urine Phencyclidine Screen NEGATIVE NEGATIVE Urine Amphetamines Screen NEGATIVE NEGATIVE Urine Benzodiazepines Screen NEGATIVE NEGATIVE Urine Cocaine Screen NEGATIVE NEGATIVE Urine Marijuana (THC) Screen POSITIVE H NEGATIVE Current Medications Medications (Trade) Dose Ordered Sig/Bob Route PRN Reason Start Time Stop Time Status Last Admin Dose Admin Acetaminophen (TYLenol 500MG TAB) 500 mg Q6H PRN PO MILD PAIN (1-3) 09/21/24 17:30 10/21/24 17:29 09/23/24 03:17 500 MG Acetaminophen (acetaMINOPHEN) 1,000 mg ONCE IVPB 09/22/24 09:00 09/22/24 09:35 DC Apixaban (EliquIS) 5 mg BID PO 09/22/24 09:00 09/22/24 08:55 DC 09/22/24 08:21 5 MG Aspirin (Aspirin 81mg Chew Tab) 81 mg DAILY PO 09/22/24 09:00 10/22/24 08:59 09/22/24 08:20 81 MG Atorvastatin Calcium (LIPItor 40MG) 80 mg DAILY PO 09/22/24 09:00 10/22/24 08:59 09/22/24 08:21 80 MG Ceftriaxone Sodium (Rocephin 2gm Inj) 2 gm Q24H IVPB 09/21/24 17:30 10/01/24 17:29 09/22/24 16:44 2 GM Dexamethasone (DeCADron 4 mg TAB) 6 mg DAILY PO 09/22/24 09:00 09/22/24 08:49 DC Dexamethasone (DeCADron 4 mg TAB) 6 mg DAILY PO 09/23/24 09:00 10/02/24 08:59 Dexamethasone Sodium Phosphate (dexaMETHasone 4MG/ML 1ML VIAL) 6 mg DAILY IVP 09/22/24 09:00 09/23/24 08:54 DC 09/22/24 10:05 6 MG Dextrose (D50w) 50 ml AD PRN IV HYPOGLYCEMIA PROTOCOL 09/22/24 03:30 10/22/24 03:29 Dextrose/Sodium Chloride 1,000 ml @ 0 mls/hr AD IV 09/22/24 09:30 09/23/24 08:52 DC Docusate Sodium (COLace 100MG CAP) 100 mg BID PRN PO c 09/22/24 03:30 10/22/24 03:29 Doxycycline Hyclate 250 ml @ 125 mls/hr BID IV 09/22/24 09:00 10/02/24 08:59 09/22/24 20:08 125 MLS/HR Dronedarone (Multaq) 400 mg BID PO 09/22/24 09:00 10/22/24 08:59 09/22/24 20:09 400 MG Enoxaparin Sodium (Lovenox (Pharmacy To Dose)) 1 unit Q12H SQ 09/22/24 09:00 09/22/24 08:55 DC Enoxaparin Sodium (Lovenox) 90 mg BID SQ 09/22/24 21:00 10/22/24 20:59 09/22/24 20:09 90 MG Famotidine (Pepcid 20mg Vial) 20 mg BID IV 09/21/24 21:00 10/21/24 20:59 09/22/24 20:08 20 MG Glucagon (Glucagon 1mg Kit) 1 mg AD PRN IM HYPOGLYCEMIA PROTOCOL 09/22/24 03:30 10/22/24 03:29 Insulin Glargine (LANtus 100 UNITS/ML 10 ML VIAL) 5 units DAILY SQ 09/23/24 09:00 09/23/24 08:56 DC Insulin Glargine (LANtus 100 UNITS/ML 10 ML VIAL) 10 units BID SQ 09/23/24 09:00 10/23/24 08:59 Insulin Human Regular (humuLIN R 100 UNIT/ML 3ML) INSULIN SLIDING SCAL... ACHS SQ 09/21/24 21:00 09/22/24 10:40 DC Insulin Human Regular (humuLIN R 100 UNIT/ML 3ML) INSULIN SLIDING SCAL... ACHS SQ 09/23/24 11:30 10/23/24 11:29 Insulin Human Regular 100 unit/ Sodium Chloride 101 ml @ 0 mls/hr PROTOCOL IV 09/22/24 09:30 09/23/24 08:52 DC 09/22/24 10:24 9.25 MLS/HR Labetalol HCl (TRANdate 20MG SYG) 10 mg Q2H PRN IV SBP GREATER THAN 180 09/22/24 03:30 09/22/24 03:36 DC Labetalol HCl (TRANdate 20MG SYG) 10 mg Q2H PRN IV SBP GREATER THAN 160 09/22/24 05:30 10/22/24 05:29 Lactulose (Constulose 20gm/ 30ml Udcup) 20 gm Q6H PRN PO CONSTIPATION 09/22/24 03:30 10/22/24 03:29 Leptospermum Honey (SurDoc) apply to right lower leg DAILY TP 09/23/24 09:00 10/23/24 08:59 Lisinopril (Prinivil 10mg) 10 mg DAILY PO 09/22/24 09:00 10/22/24 08:59 09/22/24 08:20 10 MG Magnesium Sulfate 50 ml @ 0 mls/hr PROTOCOL IV 09/22/24 09:30 09/22/24 09:32 DC Magnesium Sulfate 50 ml @ 0 mls/hr PROTOCOL PRN IV MAGNESIUM PROTOCOL 09/22/24 03:30 10/22/24 03:29 Metoprolol Succinate (TopROL XL) 50 mg BID PO 09/22/24 09:00 10/22/24 08:59 09/22/24 20:08 50 MG Nicardipine HCl 25 mg/Sodium Chloride 250 ml @ 0 mls/hr PROTOCOL IV 09/21/24 17:00 09/22/24 09:11 DC 09/21/24 17:01 50 MLS/HR Nitroglycerin (Nitrostat) 0.4 mg AD PRN SL CHEST PAIN 09/22/24 04:30 10/22/24 04:29 Ondansetron HCl (zoFRAN 4MG INJ) 4 mg Q6H PRN IVP NAUSEA/VOMITING 09/22/24 03:30 10/22/24 03:29 Potassium Chloride 20 meq/ Sodium Chloride 1,010 ml @ 0 mls/hr PROTOCOL IV 09/22/24 09:30 09/23/24 08:52 DC Potassium Chloride/Dextrose/ Sod Cl 1,000 ml @ 0 mls/hr AD IV 09/22/24 09:30 09/22/24 12:47 DC 09/22/24 10:26 150 MLS/HR Potassium Chloride/Dextrose/ Sod Cl 1,000 ml @ 0 mls/hr AD IV 09/22/24 13:00 09/23/24 08:52 DC Potassium Chloride 100 ml @ 100 mls/hr AD PRN IV POTASSIUM PROTOCOL 09/22/24 03:30 10/22/24 03:29 Potassium Chloride (K-Dur/Klor-Con 20meq) 20 meq AD PRN PO POTASSIUM PROTOCOL 09/22/24 03:30 10/22/24 03:29 Potassium Chloride (KCl 10% Elixir 20meq/15ml) 20 meq AD PRN PO POTASSIUM PROTOCOL 09/22/24 03:30 10/22/24 03:29 09/22/24 20:10 20 MEQ Sodium Chloride 1,000 ml @ 200 mls/hr PROTOCOL IV 09/22/24 09:30 09/23/24 08:52 DC Torsemide (Demadex) 40 mg DAILY PO 09/22/24 09:00 10/22/24 08:59 09/22/24 08:20 40 MG DIAGNOSTICS / RADIOLOGY: PATIENT: KRISTIN SALCIDO MR#: [id number] : 1950 SEX: F AGE: 74 LOCATION: 3[facility] ORDER 2 STATUS: ADM IN REPORT#: [id number] SERVICE 9 REASON: hypertensive emergency ORDERING PHYSICIAN: LEIGHANN SOLIZ SOLE DYER PROCEDURE: ECHO CMP - ECHO 2-D COMPLETE APPROVED REPORT EXAM: Two-dimensional and M-mode echocardiogram with Doppler and color Doppler. INDICATION ICD: Hypertension 2D Dimensions IVSd 1.1 (0.7-1.1cm) LVEF(%) 55.0 (>50%) LVED Vol(simp.) 54.1 mL LVDd 3.1 (3.8-5.6cm) FS(%) 28 % LVES Vol(simp.) 29.4 mL PWd 1.4 (0.7-1.1cm) LA (2D) 3.3 (1.6-4.0cm) LVEF(%, simp.) 46 % LVDs 2.2 (2.5-4.0cm) Ao Root(2D) 2.5 (2.0-3.7cm) LA ESV INDEX (BP) 27.28 mL/m2 LVOT diam 1.8 (1.8-2.4cm) M-Mode Dimensions EPSS 0.3 cm LA (MM) 3.7 (1.6-4.0cm) Ao Root(MM) 1.8 (2.0-3.7cm) Mitral Valve MV E Vmax 66.9 cm/s DECEL Time 284 ms MV A Vmax 60.8 cm/s P 1/2 T 85 ms E/A ratio 1.1 MVA (PHT) 2.6 cm2 TDI E/E' Medial 19.2 E/E' Lateral 14.5 Medial E' Peak V 3.48 cm/s Lateral E' Peak V 4.60 cm/s Pulmonary Valve PV Vmax 1.0 m/s PV VTI 0.18 m PV Mean GR 2.4 mmHg PV Peak GR 4.2 mmHg Tricuspid Valve TR Vmax 2.7 m/s RVSP 28.1 mmHg TR Peak GR 29.8 mmHg Left Ventricle The left ventricle is normal size. Can not exclude wall motion abnormality secondary to suboptimal views obtained There is normal left ventricular wall thickness. LVEF is 45-50%. Stage II diastolic dysfunction. Right Ventricle Right ventricle is not well visualized. Atria The left atrium size is normal. Right atrium is not well visualized. Aortic Valve The aortic valve is mildly thickened but opens well. No aortic regurgitation is present. There is no aortic valvular stenosis. Mitral Valve The mitral valve is normal in structure. There is no evidence of significant mitral regurgitation. There is no mitral valve stenosis. Tricuspid Valve The tricuspid valve is normal in structure. There is trace tricuspid valve regurgitation noted. Pulmonic Valve The pulmonary valve is normal in structure. There is no pulmonic valvular regurgitation. Great Vessels The aortic root is normal in size. The IVC was not visualized. Pericardium There is no pericardial effusion. Other Information Technically limited study due to pt refused. Conclusion LVEF is 45-50%. Stage II diastolic dysfunction. Can not exclude wall motion abnormality secondary to suboptimal views obtained The aortic valve is mildly thickened but opens well. There is no pericardial effusion. DICTATED BY: DARSHANA LEWIS MD DATE: 09/22/24 1607 ELECTRONICALLY SIGNED BY: DARSHANA LEWIS MD DATE: 09/23/24 7580 ASSESSMENT: AMS secondary to metabolic versus toxic encephalopathy Hypertensive emergency Mild troponin elevation likely in setting of type 2 CO Substance use with positive marijuana Hypertension Hyperlipidemia History of atrial fibrillation on Eliquis History of smoking Right lower extremity wound Obesity BMI 38.5 Possible acute on chronic CHF exacerbation rule out PLAN: AMS secondary to metabolic versus toxic encephalopathy Patient is alert, awake and oriented today. Patient is COVID positive. Started on dexamethasone. CRP is 7.7, procalcitonin is < 0.05, magnesium is 2.0, phosphorus 4.1, troponin is 62 then increased from 54, ammonia is < 10. Started Lasix. Repeat chest xray showed improved but persistent bilateral perihilar and right basilar airspace disease, consistent with improving pneumonia. Started on ceftriaxone (day2) and doxycycline (day 2) for atypical community- acquired pneumonia CT head was performed that showed no acute bleed or infarct and stable chronic ischemic and atrophic changes. Neurology is consulted. MRI brain ordered. Neurology states that they will not pursue stroke work up is stroke workup is negative Ordered blood culture. No growth after2 [address] performed. Possible acute on chronic CHF exacerbation BNP decreased 167 Ordered echo. Echo shows LVEF is 45-50%. Stage II diastolic dysfunction. Hypertension Patient came with a BP of 170/85. She was started on nicardipine, lisinopril and labetalol. Today her BP is 108/50. Continued on lisinopril. Monitor BP Hyperlipidemia Continued on atorvastatin Urinalysis Urinalysis showed glucose> 1000 Started on insulin glargine PHYSICIAN RESIDENT STATEMENT I was present with the resident during the History and Physical exam and I have reviewed the resident's note. This case was discussed with the resident and I agree with the history, physical exam and medical decision making as documented. Additions/exceptions/observations were directly added to the notes. Mandeep Roa MD, SYED M MD Sep 23, 2024 09:31
[2024-09-23] MEDS: HONEY 1 APPL/ML TUBE TP SCH (10:03)
--- NOTE | 2024-09-23 12:19 | HMCIMG ---
CHEST 1VW REASON: Pneumonia COMPARISON: Prior study from 09/22/2024 is available. FINDINGS: Single view of the chest was obtained. Lungs are clear. Patient is status post median sternotomy. Heart size is normal. There is uncoiling atherosclerotic change of thoracic aorta. There is no pulmonary vascular congestion. Mediastinum and bony thorax appear unremarkable. IMPRESSION: 1. No acute cardiac pulmonary process 2. Status post median sternotomy
--- NOTE | 2024-09-23 12:30 | NUR ---
HAD RECEIVED REPOT FROM ELLE ADEN . PATIENT AWAKE AND ALERT , NO SIGNS OF DISTRESS OBSERVED . CALL LIGHT WITH REACH
--- NOTE | 2024-09-23 13:35 | NUR ---
[facility] Follow-up: Patient re-assessed by wound healing team. Assessment and recommendations provided to primary nurse. Education provided. Wound care done. Addendum: 09/23/24 at 1456 by GIA PLAZA RN RN/ Amended: Links added.
--- NOTE | 2024-09-23 15:05 | NUR ---
CALLED TO NURSING TECH REGARDING PENDING MRI AND PER PATIENT HAS STENT TO RT [facility] ,PRE SCREEN FORM WAS SIGNED YESTERDAY BY SON . PER NURSING TECH OK HAS OTHER PATIENTS UPFRONT AT THIS TIME . INFORMED HIM PER PRIMARY TEAM PENDING MRI AND PLAN TO DISCHARGE HOME AFTER MRI . PER TECH UNABLE TO TAKE PATIENT DOWN AT THIS TIME
--- NOTE | 2024-09-23 15:27 | CONS ---
CONSULTATION NOTE Date of Service: Sep 23, 2024 Reason for Consultation: [ ] Requesting Physician: [ ] HISTORY OF PRESENT ILLNESS: [ ] REVIEW OF SYSTEMS CONSTITUTIONAL: Denies fever, chills, or fatigue. HEAD/FACE: No signs of trauma. EENT: Denies eye pain, blurred vision, double vision, or light sensitivity. RESPIRATORY: Denies shortness of breath, cough, wheezing CARDIOVASCULAR: Denies chest pain, palpitation, syncope GASTROINTESTINAL/ABDOMINAL: Denies abdominal pain, constipation, diarrhea, nausea or vomiting GENITOURINARY: Denies dysuria or hematuria. MUSCULOSKELETAL: Denies joint pain, tenderness, or trauma. INTEGUMENTARY: Denies rash or itchiness NEUROLOGICAL/PSYCH: Denies anxiety, depression, heat or cold intolerance. PAST MEDICAL HISTORY: [ ] PAST SURGICAL HISTORY: [ ] PAST SOCIAL HISTORY: [ ] FAMILY HISTORY: [ ] Coded Allergies: bee venom protein (honey bee) (Unverified Allergy, Severe, ANAPHYLAXIS, 09/24/23) No Known Allergies (Verified Allergy, Unknown, 04/03/16) PHYSICAL EXAM EYES: Anicteric. Pupils equal and reactive. HENT: No oral thrush seen, moist Oral mucosa NECK: Supple, no JVD or thyromegaly. LUNGS: Good air entry. No rales, no rhonchi. CARDIOVASCULAR: S1, S2 regular. No murmur heard. ABDOMEN: Soft, non tender, bowel sounds present, no organomegaly CENTRAL NERVOUS SYSTEM: Awake, alert, oriented x 3. No focal deficits. SKIN: No rashes, no swelling. LYMPHATICS: No peripheral lymphadenopathy MUSCULOSKELETAL: No joint swelling, erythema or tenderness. EXTREMITIES: No cyanosis or clubbing BACK: No deformity, no pressure ulcer. GENITOURINARY: No dysuria or hematuria Vital Sign (Last 24 Hours) 09/23/24 09/23/24 10:11 11:15 Temp 97.9 Pulse 62 Resp 22 B/P (MAP) 108/50 Pulse Ox 96 O2 Delivery Room Air O2 Flow Rate 0 FiO2 21 Intake & Output (last 24hrs) 09/22/24 09/22/24 09/23/24 15:00 23:00 07:00 Intake Total 1192.8 ml 883.5 ml Output Total 2000 ml 400 ml Balance -807.2 ml 483.5 ml LABS: Laboratory: Test 09/23/24 11:10 09/23/24 03:51 09/22/24 18:30 09/22/24 09:15 Range/Units Whole Blood Glucose 319 #H 70-110 MG/DL White Blood Count 10.0 # 4.8-10.8 K/uL Red Blood Count 5.08 4.00-5.50 MIL/uL Hemoglobin 16.3 H 12.0-16.0 g/dL Hematocrit 46.9 36-48 % Mean Corpuscular Volume 92.3 79-99 fL Mean Corpuscular Hemoglobin 32.1 27.0-33.0 pg Mean Corpuscular Hemoglobin Concent 34.8 32.0-36.0 g/dL Red Cell Distribution Width 14.3 11.0-15.5 % Platelet Count 169 130-400 K/uL Mean Platelet Volume 10.0 7.5-10.5 fL Immature Granulocyte % (Auto) 0.5 0-1 % Neutrophils (%) (Auto) 83.7 H 40.0-77.0 % Lymphocytes (%) (Auto) 10.8 L 21.0-51.0 % Monocytes (%) (Auto) 4.9 3.0-13.0 % Eosinophils (%) (Auto) 0.0 0.0-8.0 % Basophils (%) (Auto) 0.1 0.0-5.0 % Neutrophils # (Auto) 8.4 H 1.8-7.7 K/uL Lymphocytes # (Auto) 1.1 1.0-4.8 K/uL Monocytes # (Auto) 0.5 0.1-1.0 K/uL Eosinophils # (Auto) 0.00 0.00-0.70 K/uL Basophils # (Auto) 0.01 0.00-0.20 K/uL Absolute Immature Granulocyte (auto 0.05 0-1 K/uL Nucleated Red Blood Cells 0.0 0.0-0.19 % Sodium Level 135 L 136-145 mmol/L Potassium Level 4.1 3.5-5.1 mmol/L Chloride Level 100 L 101-111 mmol/L Carbon Dioxide Level 25 21-32 mmol/L Blood Urea Nitrogen 27 H 7-18 mg/dL Creatinine 1.1 H 0.5-1.0 mg/dL Glomerular Filtration Rate Calc 52 >90 mL/min Random Glucose 236 H 70-105 mg/dL Total Calcium 8.3 L 8.5-10.1 mg/dL Magnesium Level 1.90 1.80-2.40 mg/dL B-Type Natriuretic Peptide 167 H 0-100 pg/mL Group A Streptococcus Rapid negative NEGATIVE Blood Gas Specimen Type Arterial Arterial Blood pH 7.463 H 7.350-7.450 Arterial Blood Partial Pressure CO2 29 L 32-45 mmHg Arterial Blood Partial Pressure O2 90.5 83.0-108.0 mmHg Arterial Blood HCO3 20.3 L 21.0-28.0 mmol/L Arterial Blood Oxygen Saturation 96.9 94.0-98.0 % Arterial Blood Base Excess -1.9 -2.0-3.0 mmol/L Hemoglobin (Blood Gas) 16.5 H 12.0-16.0 g/dL Sodium (Blood Gas) 136 136-145 MMOL/L Bedside Potassium (Blood Gas) 4.0 3.4-4.5 MMOL/L Bedside Chloride (Blood Gas) 101 98-107 MMOL/L Bedside Glucose (Blood Gas) 168 H 65-95 MG/DL Bedside Ionized Calcium (Blood Gas) 1.16 1.15-1.33 MMOL/L Bedside Lactic Acid (Blood Gas) 0.99 H 0.36-0.75 MMOL/L Blood Gas Temperature 37.0 35.5-37.0 CELSIUS Blood Gas Vent Mode ROOM AIR ROOM AIR FiO2 21.0 % Blood Gas Specimen Comment LR GREYSON Test 09/22/24 08:51 09/22/24 05:40 09/22/24 04:19 09/21/24 19:23 Range/Units Whole Blood Ketones Quantitative 3.8 H 0.0-0.6 mmol/L Influenza Type A Antigen Negative For Type A NEGATIVE Influenza Type B Antigen Negative For Type B NEGATIVE SARS-CoV-2, RNA, NAAT POSITIVE SARS CoV-2 *A NEGATIVE Blood Gas PEEP 5 cm H2O Phosphorus Level 4.1 2.5-4.9 mg/dL Total Bilirubin 0.7 0.2-1.0 mg/dL Aspartate Amino Transf (AST/SGOT) 32 10-37 U/L Alanine Aminotransferase (ALT/SGPT) 30 12-78 U/L Alkaline Phosphatase 112 50-136 U/L Troponin I High Sensitivity 57 *H 4-50 ng/L Total Protein 7.2 6.0-8.3 g/dL Albumin 2.9 L 3.5-5.0 g/dL Ammonia < 10 L 11-32 umol/L Test 09/21/24 15:45 09/21/24 15:40 Range/Units Prothrombin Time 10.1 9.6-11.6 SEC Prothromb Time International Ratio 0.95 0.85-1.15 Activated Partial Thromboplast Time 24.0 L 26.3-35.5 SEC Hemoglobin A1c 12.7 H 4.0-6.0 % Estimated Average Glucose (eAG) 318 H 70-126 mg/dL C-Reactive Protein, Quantitative 7.70 H 0.5-3.0 mg/L Procalcitonin < 0.05 L 0.05-0.5 ng/mL Thyroid Stimulating Hormone (TSH) 3.71 # 0.36-3.74 uIU/mL Urine Color LIGHT-YELLOW YELLOW Urine Appearance CLEAR CLEAR Urine pH 6.0 5.0-8.0 Urine Specific [place] 1.022 1.001-1.031 Urine Protein 50 H NEGATIVE mg/dL Urine Glucose (UA) >=1000 H NEGATIVE mg/dL Urine Ketones NEGATIVE NEGATIVE mg/dL Urine Occult Blood NEGATIVE NEGATIVE Urine Nitrate NEGATIVE NEGATIVE Urine Bilirubin NEGATIVE NEGATIVE mg/dL Urine Urobilinogen 0.2 0.2-1.0 mg/dL Urine Leukocyte Esterase NEGATIVE NEGATIVE Lui/uL Urine RBC 0-1 0-1 /HPF Urine WBC 0-1 0-1 /HPF Urine Bacteria None None Seen /HPF Urine Opiates Screen NEGATIVE NEGATIVE Urine Barbiturates Screen NEGATIVE NEGATIVE Urine Phencyclidine Screen NEGATIVE NEGATIVE Urine Amphetamines Screen NEGATIVE NEGATIVE Urine Benzodiazepines Screen NEGATIVE NEGATIVE Urine Cocaine Screen NEGATIVE NEGATIVE Urine Marijuana (THC) Screen POSITIVE H NEGATIVE DIAGNOSTICS / RADIOLOGY: [ ] PROBLEM LIST : Medical Problems: (1) Acute coronary syndrome ICD Codes: I24.9 - Acute ischemic heart disease, unspecified (2) Cannabis abuse ICD Codes: F12.10 - Cannabis abuse, uncomplicated (3) Hypertensive emergency ICD Codes: I16.1 - Hypertensive emergency (4) Intractable nausea and vomiting ICD Codes: R11.2 - Nausea with vomiting, unspecified Bullous pemphigoid 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 Thank You for the consult and allowing us to participate in the care of this p atient. NANCY CADENA NP Sep 23, 2024 15:27
--- NOTE | 2024-09-23 15:48 | HMCSR ---
APPROVED REPORT EXAM: Two-dimensional and M-mode echocardiogram with Doppler and color Doppler. INDICATION ICD: Hypertension 2D Dimensions IVSd1.1 (0.7-1.1cm)LVEF(%)55.0 (>50%)LVED Vol(simp.)54.1 mL LVDd3.1 (3.8-5.6cm)FS(%)28 %LVES Vol(simp.)29.4 mL PWd1.4 (0.7-1.1cm)LA (2D)3.3 (1.6-4.0cm)LVEF(%, simp.)46 % LVDs2.2 (2.5-4.0cm)Ao Root(2D)2.5 (2.0-3.7cm)LA ESV INDEX (BP)27.28 mL/m2 LVOT diam1.8 (1.8-2.4cm) M-Mode Dimensions EPSS0.3 cm LA (MM)3.7 (1.6-4.0cm) Ao Root(MM)1.8 (2.0-3.7cm) Mitral Valve MV E Vmax66.9 cm/sDECEL Xiaw680 ms MV A Vmax60.8 cm/sP 1/2 T85 ms E/A ratio1.1MVA (PHT)2.6 cm2 TDI E/E' Aagayv93.2E/E' Hfhwwii85.5 Medial E' Peak V3.48 cm/sLateral E' Peak V4.60 cm/s Pulmonary Valve PV Vmax1.0 m/sPV VTI0.18 mPV Mean GR2.4 mmHg PV Peak GR4.2 mmHg Tricuspid Valve TR Vmax2.7 m/sRVSP28.1 mmHg TR Peak GR29.8 mmHg Left Ventricle The left ventricle is normal size. Can not exclude wall motion abnormality secondary to suboptimal vi ews obtained There is normal left ventricular wall thickness. LVEF is 45-50%. Stage II diastolic dysf unction. Right Ventricle Right ventricle is not well visualized. Atria The left atrium size is normal. Right atrium is not well visualized. Aortic Valve The aortic valve is mildly thickened but opens well. No aortic regurgitation is present. There is no aortic valvular stenosis. Mitral Valve The mitral valve is normal in structure. There is no evidence of significant mitral regurgitation. Th ere is no mitral valve stenosis. Tricuspid Valve The tricuspid valve is normal in structure. There is trace tricuspid valve regurgitation noted. Pulmonic Valve The pulmonary valve is normal in structure. There is no pulmonic valvular regurgitation. Great Vessels The aortic root is normal in size. The IVC was not visualized. Pericardium There is no pericardial effusion. Other Information Technically limited study due to pt refused. Conclusion LVEF is 45-50%. Stage II diastolic dysfunction. Can not exclude wall motion abnormality secondary to suboptimal views obtained The aortic valve is mildly thickened but opens well. There is no pericardial effusion.
[2024-09-23] MEDS ORDERED: DEXA4TAB PO (19:11)
[2024-09-23] MEDS ORDERED: NIRM1TAB12 PO (19:11)
--- NOTE | 2024-09-23 20:58 | NUR ---
PATIENT UPDATE ROBER MOMIN NP CALLED AND WAS MADE AWARE ABOUT THE INCOMPATIBILITY BET THE PT'S MED MULTAQ AND THE PAXLOVID WHICH WAS ORDERED TO BE STARTED TONIGHT. ORDERED TO HOLD THE PAXLOVID FOR RIGHT NOW AND CONTINUE WITH THE MULTAQ.
[2024-09-23] MEDS: PHARMACY COMMUNICATION MISC SCH (21:00)
[2024-09-24 03:34] VITALS: BP 150/58; PULSE 62; RESP 16; TEMP 97.9
[2024-09-24 03:57] VITALS: TEMP 97.9
--- NOTE | 2024-09-24 05:40 | NUR ---
WENT TO GO SHOOT X-RAY, PATIENT WAS NOT READY FOR X-RAY AT THE MOMENT
--- NOTE | 2024-09-24 08:09 | NUR ---
PATIENT UPDATE PT WITH MARKED MOOD SWINGS OVERNIGHT. STARTS WITH BEING ORIENTED X 3 THEN GETS VERY CONFUSED AND DISORIENTED AND DOESN'T EVEN KNOW WHERE SHE'S AT. COMPLAINING ABOUT THE PLACE SO FULL OF CLUTTER, REORIENTED BUT GETS VERBALLY AGGRESSIVE. STATED THAT WE ARE NOT ALLOWING HER TO GET BACK HOME. SON AT THE BEDSIDE, ALSO HELPED TO REORIENT PT BUT UNABLE TO HELP. GETS COMBATIVE IF HE STARTS TALKING MORE ABOUT WHAT'S GOING ON HERE IN THE HOSP. SON SUPPOSED TO LEAVE LAST NIGHT AT [place] BUT PERSONALLY REQUESTED HIM TO FIND OUT IF HIS SISTER CAN COME AND BE WITH THEIR MOM ANNABEL BEC OF HIGH RISK CHANCE THAT SHE GET'S OUT OF BED ON HER OWN. GRANDSON TOOK OVER AFTER MN. SHE WAS OK UNTIL EARLY AM WHEN SHE'S MORE CONFUSED AND COMBATIVE, SCRATCHED THE ARM OF THE GRANDSON UNTIL IT STARTED BLEEDING A LITTLE BIT. PULLED OUT HER PIV FROM THE RT ARM, WITH BLOOD ALL OVER HER GOWN. ATTEMPTED TO CALM HER DOWN A LITTLE BIT AT 0615 TO HELP GET HER HOSP GOWN CHANGED BUT STRONGLY REFUSED AND CURSING, STATED THAT WE ARE ALL OUT TO GET HER. OFFERED TO START A PIV SO WE CAN GIVE HER SCHEDULED IV ANTIBIOTICS BUT SCREAMS AND TRIED THROWING ALL OF US OUT OF HER ROOM. REFUSED FOR LAB TO GET HER LAB DRAWN, REFUSED FOR GLUCOMETER CHECKS. HOME PAXLOVID HASN'T BEEN STARTED LAST NIGHT BEC OF THE PHARMACIST SAYING THAT GIVING BOTH MULTAQ AND PAXLOVID CAN CAUSE A LOT OF DYSRHYTMMIAS, MIGHT NEED TO THE MAIN MD THIS MORNING ABOUT THIS. PT AND FAMILY MADE AWARE, PT'S MED LEFT AT THE BEDSIDE.
--- NOTE | 2024-09-24 10:26 | HMCIMG ---
EXAM: MR Brain Without IV Contrast. CLINICAL HISTORY: Pain. TECHNIQUE: Multiplanar multi-sequence MRI of the brain. CONTRAST: No. COMPARISON: CT scan of the brain. 09/22/2024. FINDINGS: Moderate to severe discrete and confluent T2-weighted and flair hyperintense signal intensities were identified in the bilateral cerebral white matter. Empty Sella. No evidence of acute cortical infarction, hemorrhage, mass, or mass effect. The ventricular system, sulci, and cisterns appear mildly prominent. No hydrocephalus. No abnormal extra-axial fluid collection is present. The marrow signal within the skull base and calvarium is intact. The paranasal sinuses and mastoid air cells are clear. IMPRESSION: 1. No acute intracranial abnormality or mass. 2. Moderate to severe small vessel chronic ischemic changes in bilateral cerebral white matter. 3. Age-related cerebral atrophy. /[place]
--- NOTE | 2024-09-24 10:36 | HMCIMG ---
CHEST 1VW REASON: hypoxia COMPARISON: Chest radiograph from 09/23/2024 is available. FINDINGS: Single view of the chest was obtained. Lungs are clear. Heart size is normal with median sternotomy.. There is no pulmonary vascular congestion. Mediastinum and bony thorax appear unremarkable. IMPRESSION: 1. Unchanged from prior study with no evidence of airspace consolidation or pulmonary venous congestion 2. Status post median sternotomy.
--- NOTE | 2024-09-24 10:49 | HMCIMG ---
CT CHEST PE PROTOCOL WWO CONT REASON: AMS TECHNIQUE: Thin axial images through the chest were obtained during bolus intravenous administration of 75 ml of Omnipaque 350. Sagittal and coronal reconstruction images were performed. FINDINGS: The main pulmonary arteries and their first and second order branches have normal caliber and enhancement throughout. No intraluminal filling defect is identified. Thoracic aorta is unremarkable. Heart size is within normal limits. There is coronary calcification suggesting of coronary artery disease. No pleural or pericardial effusion is identified. Lungs are clear. No pneumothorax is noted. There is no mediastinal or axillary lymphadenopathy. Patient is status post median sternotomy. Limited evaluation of the upper abdomen is unremarkable. IMPRESSION: No evidence of pulmonary embolism or aortic dissection. Status post median sternotomy Atherosclerotic changes of the thoracic aorta with calcified plaque. Coronary calcification suggesting of coronary artery disease. CT was performed with one or more following dose reduction techniques: automated exposure control, adjustment of the mA and kv according to patient's size, or use of a iterative reconstruction technique.
[2024-09-24 12:00] VITALS: BP 143/75; PULSE 65; RESP 19; TEMP 98.1
--- NOTE | 2024-09-24 14:06 | PN ---
[facility] PROGRESS NOTE Date Patient Seen: Sep 24, 2024 Time of Visit: 14:03 Supervising Physician: Dr. Peng Primary Care Physician: Attending providers: [facility] hospitalist team Outpatient Specialists: Inpatient Consults: [facility], critical Care team PROBLEM LIST: AMS, metabolic vs toxic encephalopathy, Resolved CT head neg for bleed COVID pneumonia, improved Compensated metabolic acidosis, POA Ketones elevated 2/2 hyperglycemia and Jardiance POA requiring insulin gtt resolved Hypertensive emergency POA, Resolved Mild troponin elevation likely in setting of type 2 HI Substance use with positive marijuana Fluid overload, BNP 282, noncompliance with diuretic Erythrocytosis Cholelithiasis without evidence of cholecystitis on CT Diabetes mellitus with hyperglycemia, A1c 12.7 Elevated CRP Proteinuria and glucosuria Hypertension Hyperlipidemia Atrial fibrillation on Eliquis History of smoking Right lower extremity wound Obesity BMI 38.5 INTERVAL HISTORY: Patient was evaluated at bedside today with her grandson present. Nursing staff was also present for the evaluation. Patient with metabolic encephalopathy on admission which has been going to resolved, grandson at bedside states that she has improved but not quite at baseline yet. Patient with diagnosis of COVID however she is currently on room air, she continues on steroids at this time which we will discontinue at this time as the patient is normoxic, Paxil that has been stopped secondary to its interactions with Multaq. She currently denies any chest pain or shortness of breath, only a minor cough, patient with a hemoglobin of 16.3 today, white count is 10.0 with regular renal function. Overall patient's status has improved, disposition per primary, continue medical management until cleared for discharge. REVIEW OF SYSTEMS: General: No malaise or fever. Neurological: No fainting episodes or seizures. HEENT: No nasal congestion or nasal secretion. Respiratory: + cough. Cardiac: No chest pain or palpitations. Gastrointestinal: No vomiting or diarrhea. Genitourinary: No dysuria hematuria. Skin: No rashes or lesions. Hematological: No bruises or bleeding. Musculoskeletal: No joint pains or arthralgias. Psychiatric: No depression or panic attacks. PHYSICAL EXAM: GENERAL: Awake alert and oriented x3. No focal weakness. HEENT: EOMI, Sclera non icteric, moist mucosa NECK: Supple, no JVD, trachea midline LUNGS: Clear breath sounds bilaterally. No wheezes HEART: Regular rate and rhythm. Normal S1 and S2, without murmurs ABD: Abdomen soft, obese, nontender. Bowel sounds present EXT: No clubbing cyanosis or edema NEURO: Alert and oriented to person, follows commands no focal weakness. GCS of 15. Vital Signs (last 8hr) Date Time Temp Pulse Resp B/P (MAP) Pulse Ox O2 Delivery O2 Flow Rate FiO2 09/24/24 12:00 98.1 65 19 143/75 94 Room Air LABS: Hematology Labs: Test 09/23/24 03:51 Range/Units White Blood Count 10.0 # 4.8-10.8 K/uL Red Blood Count 5.08 4.00-5.50 MIL/uL Hemoglobin 16.3 H 12.0-16.0 g/dL Hematocrit 46.9 36-48 % Mean Corpuscular Volume 92.3 79-99 fL Mean Corpuscular Hemoglobin 32.1 27.0-33.0 pg Mean Corpuscular Hemoglobin Concent 34.8 32.0-36.0 g/dL Red Cell Distribution Width 14.3 11.0-15.5 % Platelet Count 169 130-400 K/uL Mean Platelet Volume 10.0 7.5-10.5 fL Immature Granulocyte % (Auto) 0.5 0-1 % Neutrophils (%) (Auto) 83.7 H 40.0-77.0 % Lymphocytes (%) (Auto) 10.8 L 21.0-51.0 % Monocytes (%) (Auto) 4.9 3.0-13.0 % Eosinophils (%) (Auto) 0.0 0.0-8.0 % Basophils (%) (Auto) 0.1 0.0-5.0 % Neutrophils # (Auto) 8.4 H 1.8-7.7 K/uL Lymphocytes # (Auto) 1.1 1.0-4.8 K/uL Monocytes # (Auto) 0.5 0.1-1.0 K/uL Eosinophils # (Auto) 0.00 0.00-0.70 K/uL Basophils # (Auto) 0.01 0.00-0.20 K/uL Absolute Immature Granulocyte (auto 0.05 0-1 K/uL Nucleated Red Blood Cells 0.0 0.0-0.19 % Chemistry Labs: Test 09/24/24 10:55 09/23/24 03:51 Range/Units Whole Blood Glucose 285 H 70-110 MG/DL Sodium Level 135 L 136-145 mmol/L Potassium Level 4.1 3.5-5.1 mmol/L Chloride Level 100 L 101-111 mmol/L Carbon Dioxide Level 25 21-32 mmol/L Blood Urea Nitrogen 27 H 7-18 mg/dL Creatinine 1.1 H 0.5-1.0 mg/dL Glomerular Filtration Rate Calc 52 >90 mL/min Random Glucose 236 H 70-105 mg/dL Total Calcium 8.3 L 8.5-10.1 mg/dL Magnesium Level 1.90 1.80-2.40 mg/dL B-Type Natriuretic Peptide 167 H 0-100 pg/mL DIAGNOSTICS / RADIOLOGY RESULTS: [ ] PLAN NEURO: Minimize central acting medications as possible. Maintain fall precautions, adequate lighting during the day PULMONARY: Supplemental 02 as needed. Maintain aspiration precautions at all times CARDIOVASCULAR: Follow hemodynamics. Vital signs per facility protocol GI & NUTRITION: Continue with nutritional support. Continue stool softeners and laxatives as needed. KIDNEYS & ELECTROLYTES: Strict monitoring of intake, output and overall fluid balance. Avoid nephrotoxic medications to the extent possible. Medications to be dosed according to renal function. Monitor electrolytes and replace as needed ENDOCRINE: Maintain blood glucose between 100-180 at all times. Hypoglycemia protocol in place INFECTIOUS DISEASE: Trend temperature, WBC and procalcitonin level Follow cultures, deescalate antibiotics as soon as possible. Panculture if new onset fever ONCOLOGY/HEMATOLOGY/COAGULATION: Monitor for s/s of bleeding Monitor hemoglobin, coagulation studies as needed SKIN: Pressure ulcer prevention per facility protocol Specialty mattress ORTHO/REHAB: Continue PT/OT Prophylaxis: Continue GI and DVT prophylaxis Code Status: Full Resuscitation Disposition: TBD Other: Total patient care time exceeds 35 minutes excluding all procedures. BRENDA HADLEY Sep 24, 2024 14:06
--- NOTE | 2024-09-24 14:11 | DS ---
Discharge Summary Hospital Course Summary: Patient is a 74-year-old female with a past medical history of hypertension, hyperlipidemia, diabetes mellitus type 2, history of tobacco use, history of atrial fibrillation on anticoagulation with Eliquis presented to the emergency department secondary to confusion. Patient was found to be in hypertensive emergency with a blood pressure of 207/76 with a heart rate of 59 and a respiratory rate of 21. Patient also had ulcers wound on her right leg. Laboratory results were significant for an elevated BNP of 282, troponin of 55, chloride of 99. Serology revealed that the patient was positive for a COVID 19 infection. Urinalysis was significant for a urine glucose of more than 1000, toxicology revealed the patient was positive for marijuana. Patient was admitted on 09/22/2024 for evaluation of her altered mental status. Neurology was consulted for her 3rd mental status who recommended a CT scan of head to rule out stroke. Following a normal CT head neurology recommended to assess for secondary causes of her altered mental status and a confirmatory brain MRI to definitively rule out stroke. Pulmonary and Critical Care Medicine was consulted for evaluation of her COVID-19 pneumonia. They recommended steroids, and Paxlovid. Laboratory results also revealed that the patient was having uncontrolled hyperglycemia with a HbA1c of 12.7. Patient was placed on an insulin sliding scale and monitored. Wound care management was consulted regarding her wound on her right leg, they assessed and treated the wound while in the hospital. Repeat chest x-rays showed resolution of the pneumonia. And the patient's vitals were stabilizing. After receiving the 1st dose of Paxlovid patient's mental status was altered again, possibly due to a drug interaction between Paxlovid and her Multaq. After discontinuation of the Paxlovid patient's mental status returned to her baseline. On 09/24/2024, patient showed significant clinical improvement with normalized vitals and clinically stable disposition. Based on our assessment the decision was made to discharge the patient home with advice to follow up with her primary care physician within 3-5 days. Director Of Distance Learning(s): CONSULTATION REPORT Name: KRISTIN ARAUZ Acct: [id number] MR: [id number] : 1950 Admit Date: 09/21/24 LEIGHANN SOLIZ [place] [id number] [place] [id number] [facility] CONSULTATION NOTE Date Patient Seen: Sep 21, 2024 Time of Visit: 20:57 Supervising Physician: Dr. Braeden Carpio Reason for Consultation: Hypertensive emergency, ICU support, AMS Primary Care Physician: Attending providers: [facility] hospitalist team Outpatient Specialists: Inpatient Consults: BIS, critical Care team PROBLEM LIST: AMS, metabolic vs toxic encephalopathy Hypertensive emergency Mild troponin elevation likely in setting of type 2 NV Substance use with positive marijuana Fluid overload, BNP 282, noncompliance with diuretic Erythrocytosis Diabetes mellitus with hyperglycemia, A1c 12.7 Elevated CRP Proteinuria and glucosuria Hypertension Hyperlipidemia Atrial fibrillation on Eliquis History of smoking Right lower extremity wound Obesity BMI 38.5 HPI: Ms. Arauz is a 74-year-old female with a past medical history of hypertension, hyperlipidemia, diabetes mellitus type 2, history of tobacco, history of atrial fibrillation on anticoagulation with Eliquis use who presented to [facility] ED for evaluation of confusion. The daughter reported that since yesterday the patient has been less responsive and confused. Per chart review the patient was morning about pain, was not answer questions, and and was not follow conversations. Per daughter patient was complaining of pain in the lower back area. She also has a wound in the right lower extremity and is being followed by wound care. The daughter reported that the patient is noncompliant with her torsemide because it makes her urinate a lot. The daughter also reported that the patient has not been able to take her home medications and the the patient took her last dose of Eliquis two days ago. Daughter denied any fevers, chills, nausea, vomiting, denied any falls, or syncopal episode. History is limited secondary to patient's confusion. Vital signs on arrival: 207/76, heart rate was 59, respiratory rate was 21, patient was saturating 99% on room. Labs: WBCs 7.2, hemoglobin was 17.6, platelet count was 154 K, sodium was 138, potassium was 3.5, creatinine is 0.7, blood glucose was 199, ED provider requested patient be admitted to the hospital with the diagnosis of ACS, intractable nausea and vomiting, hypertensive emergency, cannabis use. The patient was admitted by the [facility] hospitalist team with BIS team as consults for ICU support, hypertensive emergency, and AMS. I assessed the patient at bedside in room 208. Daughter and son were at bedside. Patient's breathing was even, unlabored, in no distress. She had Cardene running at 5 mg/hr. BP was 135/51, HR 73bpm, RR 18bpm, O2 92% on 2 L nasal cannula. When I asked the patient for her name she stated she does not want to talk and she wants water. Son and daughter provided all the information. I informed them of labs, diagnostics, and plan of care. They verbalized understanding and are in agreement with the plan. Plan and assessment are listed below. PAST MEDICAL HX: see above PAST SURGICAL HX: CABG, history of , carotid endarterectomy SOCIAL HISTORY: No tobacco, ETOH, or illicit drug use FAMILY HISTORY: Morbid obesity Coded Allergies: bee venom protein (honey bee) (Unverified Allergy, Severe, ANAPHYLAXIS, 09/24/23) No Known Allergies (Verified Allergy, Unknown, 04/03/16) REVIEW OF SYSTEMS: Unable to obtain ROS from patient. Patient reports she does not feel like talking, but is requesting water. PHYSICAL EXAM: GENERAL: Alert, weak, awake oriented x person. Unsure if oriented to time, place, situation. Noncontributory. She reports does not want to talk. HEENT: EOMI, Sclera non icteric, moist mucosa NECK: Supple, no JVD, trachea midline LUNGS: Clear breath sounds bilaterally. No wheezes HEART: Regular rate and rhythm. Normal S1 and S2, without murmurs ABD: Abdomen soft, obese, nontender. Bowel sounds present EXT: No clubbing cyanosis or edema NEURO: Alert and oriented to person, follows commands Vital Signs (last 8hr) Date Time Temp Pulse Resp B/P (MAP) Pulse Ox O2 Delivery O2 Flow Rate FiO2 09/21/24 19:25 66 18 136/64 96 Nasal Cannula* 2 09/21/24 18:35 97.5 67 21 147/55 98 Nasal Cannula* 2 09/21/24 17:15 64 21 161/60 99 Nasal Cannula* 2 09/21/24 17:02 66 21 208/76 99 Nasal Cannula* 2 09/21/24 17:01 66 208/76 09/21/24 16:40 70 21 184/72 99 Nasal Cannula* 2 09/21/24 16:30 65 21 207/86 99 Nasal Cannula* 2 09/21/24 16:10 59 21 207/76 99 Nasal Cannula* 2 28 09/21/24 15:52 66 21 195/74 99 Nasal Cannula* 2 28 09/21/24 15:35 70 21 209/94 99 Nasal Cannula* 2 28 09/21/24 15:08 97.5 65 18 170/85 97 Room Air 0 LABS: Hematology Labs: Test 09/21/24 15:45 Range/Units White Blood Count 7.2 4.8-10.8 K/uL Red Blood Count 5.54 H 4.00-5.50 MIL/uL Hemoglobin 17.6 H 12.0-16.0 g/dL Hematocrit 50.5 H 36-48 % Mean Corpuscular Volume 91.2 79-99 fL Mean Corpuscular Hemoglobin 31.8 27.0-33.0 pg Mean Corpuscular Hemoglobin Concent 34.9 32.0-36.0 g/dL Red Cell Distribution Width 14.3 11.0-15.5 % Platelet Count 154 130-400 K/uL Mean Platelet Volume 9.7 7.5-10.5 fL Immature Granulocyte % (Auto) 0.6 0-1 % Neutrophils (%) (Auto) 70.2 40.0-77.0 % Lymphocytes (%) (Auto) 20.7 L 21.0-51.0 % Monocytes (%) (Auto) 6.4 3.0-13.0 % Eosinophils (%) (Auto) 1.4 0.0-8.0 % Basophils (%) (Auto) 0.7 0.0-5.0 % Neutrophils # (Auto) 5.1 1.8-7.7 K/uL Lymphocytes # (Auto) 1.5 1.0-4.8 K/uL Monocytes # (Auto) 0.5 0.1-1.0 K/uL Eosinophils # (Auto) 0.10 0.00-0.70 K/uL Basophils # (Auto) 0.05 0.00-0.20 K/uL Absolute Immature Granulocyte (auto 0.04 0-1 K/uL Nucleated Red Blood Cells 0.0 0.0-0.19 % Chemistry Labs: Test 09/21/24 20:38 09/21/24 19:23 09/21/24 16:52 09/21/24 15:45 Range/Units Whole Blood Glucose 170 H 70-110 MG/DL Ammonia < 10 L 11-32 umol/L Troponin I High Sensitivity 54 *H 4-50 ng/L Sodium Level 138 136-145 mmol/L Potassium Level 3.5 3.5-5.1 mmol/L Chloride Level 99 L 101-111 mmol/L Carbon Dioxide Level 27 21-32 mmol/L Blood Urea Nitrogen 20 H 7-18 mg/dL Creatinine 0.7 0.5-1.0 mg/dL Glomerular Filtration Rate Calc 90 >90 mL/min Random Glucose 199 H 70-105 mg/dL Hemoglobin A1c 12.7 H 4.0-6.0 % Estimated Average Glucose (eAG) 318 H 70-126 mg/dL Total Calcium 9.3 8.5-10.1 mg/dL Magnesium Level 2.10 1.80-2.40 mg/dL C-Reactive Protein, Quantitative 7.70 H 0.5-3.0 mg/L B-Type Natriuretic Peptide 282 H 0-100 pg/mL Procalcitonin < 0.05 L 0.05-0.5 ng/mL Thyroid Stimulating Hormone (TSH) 3.71 # 0.36-3.74 uIU/mL Coagulation Labs: Test 09/21/24 15:45 Range/Units Prothrombin Time 10.1 9.6-11.6 SEC Prothromb Time International Ratio 0.95 0.85-1.15 Activated Partial Thromboplast Time 24.0 L 26.3-35.5 SEC DIAGNOSTICS / RADIOLOGY RESULTS: [ ] PLAN -The patient was admitted to ICU with continuous telemetry monitoring by admitting [employer] team, and BIS team as critical care consults. -Tele neuro was consulted by admitting team. -Follow blood cultures. -Continue Rocephin IV for empiric treatment. -Wean off of Cardene drip. -In a.m. continue blood pressure medications lisinopril, Multaq, metoprolol succinate, atorvastatin, Eliquis, torsemide. -Hold home medication tramadol, Jardiance, and NovoLog for now. -Nitroglycerin sublingual as needed chest pain -Aspirin 81 mg p.o. daily. -Education on medication compliance and on marijuana cessation. -Wound consult. -Troponin levels and EKG series. -Cardiology consult in the am. -2D echo in a.m. with heart clinic to read. -Avoid psychoactive medications as much as possible. Maintain adequate lighting during the daytime and a quiet environment at night with low light level to prevent acute delirium. Fall and aspiration precaution. -PRN medications for pain management, fever, N/V, constipation, hypertension. -Oxygen supplement as needed to maintain oxygen levels equal to or greater than 92% -Strict I&O. -Fluid restriction 1,200 mls in 24 hours. -Vital signs per ICU. -Glucometer checks before meals and at bedtime with insulin regular sliding scale. - Monitor renal and liver function. -Monitor electrolytes and treat accordingly PRN -AM labs. -GI and DVT prophylaxis -Further plan/orders per hospitalization course. NEURO: Minimize central acting medications as possible. Fall Precautions. Well lighted room through the day and minimize interruptions through the night to prevent acute delirium. PULMONARY: Supplemental 02 as needed Titrate Fio2 to keep Spo2 > or = 90% DuoNebs and CPT as needed IS hourly while awake for pulmonary hygiene Out of bed to chair as tolerated VAP Bundle CARDIOVASCULAR: Follow hemodynamics. Titrate vasopressor to keep MAP >65 or systolic blood pressure >95mmHg GI & NUTRITION: Continue nutritional support Aspirations precautions Prokinetic agents and laxatives as needed KIDNEYS & ELECTROLYTES: Strict monitoring of intake and output Daily weights Avoid nephrotoxic agents Monitor electrolytes and replace as needed Goal urine output of 30mL/hr or 0.5mL/kg/hr ENDOCRINE: Maintain blood glucose between 100-180 at all times. Insulin sliding scale for blood glucose management INFECTIOUS DISEASE: Trend temperature. Villanueva-culture if febrile. HEMATOLOGY & COAGULATION: Monitor H&H. Keep Hgb > 7 Transfuse 1 unit of PRBC for Hgb < 7 Transfuse 1 pack of platelets of platelets < 20, 000 Watch for any signs and symptoms of bleeding SKIN: Pressure ulcer prevention per facility protocol Rehab: PT/OT Code Status: Full Resuscitation Disposition: [Admit to ICU] LEIGHANN SOLIZ [facility] Sep 21, 2024 20:57 Electronically Signed by: LEIGHANN SOLIZ [facility]09/22/24 0411 Electronically Co-Signed by: CONSULTATION REPORT Name: KRISTIN ARAUZ Acct: [id number] MR: [id number] : 1950 Admit Date: 09/21/24 NANCY CADENA NP [place] [id number] [place] [id number] CONSULTATION NOTE Date of Service: Sep 23, 2024 Reason for Consultation: [ ] Requesting Physician: [ ] HISTORY OF PRESENT ILLNESS: [ ] REVIEW OF SYSTEMS CONSTITUTIONAL: Denies fever, chills, or fatigue. HEAD/FACE: No signs of trauma. EENT: Denies eye pain, blurred vision, double vision, or light sensitivity. RESPIRATORY: Denies shortness of breath, cough, wheezing CARDIOVASCULAR: Denies chest pain, palpitation, syncope GASTROINTESTINAL/ABDOMINAL: Denies abdominal pain, constipation, diarrhea, nausea or vomiting GENITOURINARY: Denies dysuria or hematuria. MUSCULOSKELETAL: Denies joint pain, tenderness, or trauma. INTEGUMENTARY: Denies rash or itchiness NEUROLOGICAL/PSYCH: Denies anxiety, depression, heat or cold intolerance. PAST MEDICAL HISTORY: [ ] PAST SURGICAL HISTORY: [ ] PAST SOCIAL HISTORY: [ ] FAMILY HISTORY: [ ] Coded Allergies: bee venom protein (honey bee) (Unverified Allergy, Severe, ANAPHYLAXIS, 09/24/23) No Known Allergies (Verified Allergy, Unknown, 04/03/16) PHYSICAL EXAM EYES: Anicteric. Pupils equal and reactive. HENT: No oral thrush seen, moist Oral mucosa NECK: Supple, no JVD or thyromegaly. LUNGS: Good air entry. No rales, no rhonchi. CARDIOVASCULAR: S1, S2 regular. No murmur heard. ABDOMEN: Soft, non tender, bowel sounds present, no organomegaly CENTRAL NERVOUS SYSTEM: Awake, alert, oriented x 3. No focal deficits. SKIN: No rashes, no swelling. LYMPHATICS: No peripheral lymphadenopathy MUSCULOSKELETAL: No joint swelling, erythema or tenderness. EXTREMITIES: No cyanosis or clubbing BACK: No deformity, no pressure ulcer. GENITOURINARY: No dysuria or hematuria Vital Sign (Last 24 Hours) 09/23/24 09/23/24 10:11 11:15 Temp 97.9 Pulse 62 Resp 22 B/P (MAP) 108/50 Pulse Ox 96 O2 Delivery Room Air O2 Flow Rate 0 FiO2 21 Intake & Output (last 24hrs) 09/22/24 09/22/24 09/23/24 15:00 23:00 07:00 Intake Total 1192.8 ml 883.5 ml Output Total 2000 ml 400 ml Balance -807.2 ml 483.5 ml LABS: Laboratory: Test 09/23/24 11:10 09/23/24 03:51 09/22/24 18:30 09/22/24 09:15 Range/Units Whole Blood Glucose 319 #H 70-110 MG/DL White Blood Count 10.0 # 4.8-10.8 K/uL Red Blood Count 5.08 4.00-5.50 MIL/uL Hemoglobin 16.3 H 12.0-16.0 g/dL Hematocrit 46.9 36-48 % Mean Corpuscular Volume 92.3 79-99 fL Mean Corpuscular Hemoglobin 32.1 27.0-33.0 pg Mean Corpuscular Hemoglobin Concent 34.8 32.0-36.0 g/dL Red Cell Distribution Width 14.3 11.0-15.5 % Platelet Count 169 130-400 K/uL Mean Platelet Volume 10.0 7.5-10.5 fL Immature Granulocyte % (Auto) 0.5 0-1 % Neutrophils (%) (Auto) 83.7 H 40.0-77.0 % Lymphocytes (%) (Auto) 10.8 L 21.0-51.0 % Monocytes (%) (Auto) 4.9 3.0-13.0 % Eosinophils (%) (Auto) 0.0 0.0-8.0 % Basophils (%) (Auto) 0.1 0.0-5.0 % Neutrophils # (Auto) 8.4 H 1.8-7.7 K/uL Lymphocytes # (Auto) 1.1 1.0-4.8 K/uL Monocytes # (Auto) 0.5 0.1-1.0 K/uL Eosinophils # (Auto) 0.00 0.00-0.70 K/uL Basophils # (Auto) 0.01 0.00-0.20 K/uL Absolute Immature Granulocyte (auto 0.05 0-1 K/uL Nucleated Red Blood Cells 0.0 0.0-0.19 % Sodium Level 135 L 136-145 mmol/L Potassium Level 4.1 3.5-5.1 mmol/L Chloride Level 100 L 101-111 mmol/L Carbon Dioxide Level 25 21-32 mmol/L Blood Urea Nitrogen 27 H 7-18 mg/dL Creatinine 1.1 H 0.5-1.0 mg/dL Glomerular Filtration Rate Calc 52 >90 mL/min Random Glucose 236 H 70-105 mg/dL Total Calcium 8.3 L 8.5-10.1 mg/dL Magnesium Level 1.90 1.80-2.40 mg/dL B-Type Natriuretic Peptide 167 H 0-100 pg/mL Group A Streptococcus Rapid negative NEGATIVE Blood Gas Specimen Type Arterial Arterial Blood pH 7.463 H 7.350-7.450 Arterial Blood Partial Pressure CO2 29 L 32-45 mmHg Arterial Blood Partial Pressure O2 90.5 83.0-108.0 mmHg Arterial Blood HCO3 20.3 L 21.0-28.0 mmol/L Arterial Blood Oxygen Saturation 96.9 94.0-98.0 % Arterial Blood Base Excess -1.9 -2.0-3.0 mmol/L Hemoglobin (Blood Gas) 16.5 H 12.0-16.0 g/dL Sodium (Blood Gas) 136 136-145 MMOL/L Bedside Potassium (Blood Gas) 4.0 3.4-4.5 MMOL/L Bedside Chloride (Blood Gas) 101 98-107 MMOL/L Bedside Glucose (Blood Gas) 168 H 65-95 MG/DL Bedside Ionized Calcium (Blood Gas) 1.16 1.15-1.33 MMOL/L Bedside Lactic Acid (Blood Gas) 0.99 H 0.36-0.75 MMOL/L Blood Gas Temperature 37.0 35.5-37.0 CELSIUS Blood Gas Vent Mode ROOM AIR ROOM AIR FiO2 21.0 % Blood Gas Specimen Comment LR GREYSON Test 09/22/24 08:51 09/22/24 05:40 09/22/24 04:19 09/21/24 19:23 Range/Units Whole Blood Ketones Quantitative 3.8 H 0.0-0.6 mmol/L Influenza Type A Antigen Negative For Type A NEGATIVE Influenza Type B Antigen Negative For Type B NEGATIVE SARS-CoV-2, RNA, NAAT POSITIVE SARS CoV-2 *A NEGATIVE Blood Gas PEEP 5 cm H2O Phosphorus Level 4.1 2.5-4.9 mg/dL Total Bilirubin 0.7 0.2-1.0 mg/dL Aspartate Amino Transf (AST/SGOT) 32 10-37 U/L Alanine Aminotransferase (ALT/SGPT) 30 12-78 U/L Alkaline Phosphatase 112 50-136 U/L Troponin I High Sensitivity 57 *H 4-50 ng/L Total Protein 7.2 6.0-8.3 g/dL Albumin 2.9 L 3.5-5.0 g/dL Ammonia < 10 L 11-32 umol/L Test 09/21/24 15:45 09/21/24 15:40 Range/Units Prothrombin Time 10.1 9.6-11.6 SEC Prothromb Time International Ratio 0.95 0.85-1.15 Activated Partial Thromboplast Time 24.0 L 26.3-35.5 SEC Hemoglobin A1c 12.7 H 4.0-6.0 % Estimated Average Glucose (eAG) 318 H 70-126 mg/dL C-Reactive Protein, Quantitative 7.70 H 0.5-3.0 mg/L Procalcitonin < 0.05 L 0.05-0.5 ng/mL Thyroid Stimulating Hormone (TSH) 3.71 # 0.36-3.74 uIU/mL Urine Color LIGHT-YELLOW YELLOW Urine Appearance CLEAR CLEAR Urine pH 6.0 5.0-8.0 Urine Specific [place] 1.022 1.001-1.031 Urine Protein 50 H NEGATIVE mg/dL Urine Glucose (UA) >=1000 H NEGATIVE mg/dL Urine Ketones NEGATIVE NEGATIVE mg/dL Urine Occult Blood NEGATIVE NEGATIVE Urine Nitrate NEGATIVE NEGATIVE Urine Bilirubin NEGATIVE NEGATIVE mg/dL Urine Urobilinogen 0.2 0.2-1.0 mg/dL Urine Leukocyte Esterase NEGATIVE NEGATIVE Lui/uL Urine RBC 0-1 0-1 /HPF Urine WBC 0-1 0-1 /HPF Urine Bacteria None None Seen /HPF Urine Opiates Screen NEGATIVE NEGATIVE Urine Barbiturates Screen NEGATIVE NEGATIVE Urine Phencyclidine Screen NEGATIVE NEGATIVE Urine Amphetamines Screen NEGATIVE NEGATIVE Urine Benzodiazepines Screen NEGATIVE NEGATIVE Urine Cocaine Screen NEGATIVE NEGATIVE Urine Marijuana (THC) Screen POSITIVE H NEGATIVE DIAGNOSTICS / RADIOLOGY: [ ] PROBLEM LIST : Medical Problems: (1) Acute coronary syndrome ICD Codes: I24.9 - Acute ischemic heart disease, unspecified (2) Cannabis abuse ICD Codes: F12.10 - Cannabis abuse, uncomplicated (3) Hypertensive emergency ICD Codes: I16.1 - Hypertensive emergency (4) Intractable nausea and vomiting ICD Codes: R11.2 - Nausea with vomiting, unspecified Bullous pemphigoid 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 Thank You for the consult and allowing us to participate in the care of this patient. NANCY CADENA NP Sep 23, 2024 15:27 Electronically Signed by: Electronically Co-Signed by: Procedure(s): [facility] [address] [id number] IMAGING REPORT Signed PATIENT: KRISTIN ARAUZ MR#: [id number] : 1950 SEX: F AGE: 74 LOCATION: [facility] ORDER 08 STATUS: [facility] REPORT#: [id number] SERVICE REASON: cp ORDERING PHYSICIAN: MARY RAINES MD PROCEDURE: CXR1VW - CHEST 1VW EXAM: XR Chest, 2 Views. CLINICAL HISTORY: 76-year-old female with palpitations. COMPARISON: 09/20/2024, 4:11 pm FINDINGS: LUNGS: The lungs are clear. No consolidation. PLEURAL SPACES: No pleural effusion or pneumothorax. HEART: The heart size is normal. BONES: No acute osseous abnormality. IMPRESSION: 1. No acute cardiopulmonary pathology. /[place] DICTATED BY: ELLEN BRENNAN MD DATE: 09/21/241717 ELECTRONICALLY SIGNED BY: ELLEN BRENNAN MD DATE: 09/21/241717 [facility] [address] [place] [id number] IMAGING REPORT Signed PATIENT: KRISTIN ARAUZ MR#: [id number] : 1950 SEX: F AGE: 74 LOCATION: [facility] ORDER 08 STATUS: REG ER REPORT#: [id number] SERVICE 1508 REASON: headache ORDERING PHYSICIAN: MARY RAINES MD PROCEDURE: HEAD WO - CT HEAD/BRAIN W/O CONTRAST EXAM: CT Head Without IV contrast. CLINICAL HISTORY: headache TECHNIQUE: Axial computed tomography images of the head/brain without intravenous contrast. COMPARISON: 05/20/2023 FINDINGS: BRAIN: No acute bleed or infarct. Stable chronic ischemic and atrophic changes. VENTRICLES: No hydrocephalus. ORBITS: The orbits are unremarkable. SINUSES AND MASTOIDS: The paranasal sinuses and mastoid air cells are clear. BONES: No fracture. SOFT TISSUES: Unremarkable. IMPRESSION: No acute bleed or infarct. Stable chronic ischemic and atrophic changes. /[place] DICTATED BY: ASA PETTIT MD DATE: 09/21/241655 ELECTRONICALLY SIGNED BY: ASA PETTIT MD DATE: 09/21/241655 [place] [address] IMAGING REPORT Signed PATIENT: KRISTIN ARAUZ MR#: [id number] : 1950 SEX: F AGE: 74 LOCATION: [facility] ORDER 08 STATUS: [facility] REPORT#: [id number] SERVICE 1508 REASON: headache ORDERING PHYSICIAN: AMRY RAINES MD PROCEDURE: HEAD WO - CT HEAD/BRAIN W/O CONTRAST EXAM: CT Head Without IV contrast. CLINICAL HISTORY: headache TECHNIQUE: Axial computed tomography images of the head/brain without intravenous contrast. COMPARISON: 05/20/2023 FINDINGS: BRAIN: No acute bleed or infarct. Stable chronic ischemic and atrophic changes. VENTRICLES: No hydrocephalus. ORBITS: The orbits are unremarkable. SINUSES AND MASTOIDS: The paranasal sinuses and mastoid air cells are clear. BONES: No fracture. SOFT TISSUES: Unremarkable. IMPRESSION: No acute bleed or infarct. Stable chronic ischemic and atrophic changes. /[place] DICTATED BY: ASA PETTIT MD DATE: 09/21/241655 ELECTRONICALLY SIGNED BY: ASA PETTIT MD DATE: 09/21/241655 [place] [address] [place] [id number] IMAGING REPORT Signed PATIENT: KRISTIN ARAUZ MR#: [id number] : 1950 SEX: F AGE: 74 LOCATION: [facility] ORDER 17 STATUS: ADM IN REPORT#: [id number] SERVICE 08 REASON: abdominal pain ORDERING PHYSICIAN: CRISTOBAL MACKENZIE MD PROCEDURE: ABD PEL WO - CT ABDOMEN/PELVIS W/O CONTRAST EXAM: CT Abdomen and Pelvis Without IV contrast CLINICAL HISTORY: abdominal pain TECHNIQUE: Axial computed tomography images of the abdomen and pelvis without intravenous contrast. CONTRAST: No IV contrast. COMPARISON: US abdomendated 09/25/23 9 FINDINGS: LUNG BASES: Minimal pleural effusion noted in the left lung base. Lungs appear congested. No focal lesions. Mild to moderate coronary artery calcifications. LIVER: Unremarkable. GALLBLADDER AND BILE DUCTS: The gallbladder contains a few dependent calculi, with no features of cholecystitis. No extra biliary obstruction. PANCREAS: Unremarkable. SPLEEN: Unremarkable. ADRENAL GLANDS: Unremarkable. KIDNEYS, URETERS, AND BLADDER: The kidneys appear within normal limits. There is no hydronephrosis or hydroureter. No urinary calculi are seen. Thick-walled urinary bladder which may be due to underdistention or cystitis. Acosta catheter in place. STOMACH AND BOWEL: Unremarkable appearance of the stomach and bowel. No evidence of bowel obstruction. No evidence suggesting enteritis or colitis.Scattered colonic diverticulae along the distal colon. APPENDIX: No evidence of acute appendicitis on CT examination. PERITONEUM: No free fluid. No free air. A fat-containing umbilical hernia with a hernial neck measuring 2.4 cm in width. LYMPH NODES: No lymphadenopathy is evident. REPRODUCTIVE: Unremarkable as visualised. VASCULATURE: No evidence of abdominal aortic aneurysm. BONES: No aggressive appearing osseous lesion. No acute osseous pathology . IMPRESSION: Thick-walled urinary bladder which may be due to underdistention or cystitis. Cholelithiasis with no features of cholecystitis. No urinary calculi. No hydronephrosis. No bowel obstruction or inflammation. Colonic diverticulosis. No features of diverticulitis. A fat-containing umbilical hernia. /[place] DICTATED BY: ASA PETTIT MD DATE: 09/21/242125 ELECTRONICALLY SIGNED BY: ASA PETTIT MD DATE: 09/21/242125 [place] [address] IMAGING REPORT Signed PATIENT: KRISTIN ARAUZ MR#: [id number] : 1950 SEX: F AGE: 74 LOCATION: [facility] ORDER 2 STATUS: ADM IN REPORT#: [id number] SERVICE 9 REASON: hypertensive emergency ORDERING PHYSICIAN: LEIGHANN SOLIZ PROCEDURE: ECHO CMP - ECHO 2-D COMPLETE APPROVED REPORT EXAM: Two-dimensional and M-mode echocardiogram with Doppler and color Doppler. INDICATION ICD: Hypertension 2D Dimensions IVSd 1.1 (0.7-1.1cm) LVEF(%) 55.0 (>50%) LVED Vol(simp.) 54.1 mL LVDd 3.1 (3.8-5.6cm) FS(%) 28 % LVES Vol(simp.) 29.4 mL PWd 1.4 (0.7-1.1cm) LA (2D) 3.3 (1.6-4.0cm) LVEF(%, simp.) 46 % LVDs 2.2 (2.5-4.0cm) Ao Root(2D) 2.5 (2.0-3.7cm) LA ESV INDEX (BP) 27.28 mL/m2 LVOT diam 1.8 (1.8-2.4cm) M-Mode Dimensions EPSS 0.3 cm LA (MM) 3.7 (1.6-4.0cm) Ao Root(MM) 1.8 (2.0-3.7cm) Mitral Valve MV E Vmax 66.9 cm/s DECEL Time 284 ms MV A Vmax 60.8 cm/s P 1/2 T 85 ms E/A ratio 1.1 MVA (PHT) 2.6 cm2 TDI E/E' Medial 19.2 E/E' Lateral 14.5 Medial E' Peak V 3.48 cm/s Lateral E' Peak V 4.60 cm/s Pulmonary Valve PV Vmax 1.0 m/s PV VTI 0.18 m PV Mean GR 2.4 mmHg PV Peak GR 4.2 mmHg Tricuspid Valve TR Vmax 2.7 m/s RVSP 28.1 mmHg TR Peak GR 29.8 mmHg Left Ventricle The left ventricle is normal size. Can not exclude wall motion abnormality secondary to suboptimal views obtained There is normal left ventricular wall thickness. LVEF is 45-50%. Stage II diastolic dysfunction. Right Ventricle Right ventricle is not well visualized. Atria The left atrium size is normal. Right atrium is not well visualized. Aortic Valve The aortic valve is mildly thickened but opens well. No aortic regurgitation is present. There is no aortic valvular stenosis. Mitral Valve The mitral valve is normal in structure. There is no evidence of significant mitral regurgitation. There is no mitral valve stenosis. Tricuspid Valve The tricuspid valve is normal in structure. There is trace tricuspid valve regurgitation noted. Pulmonic Valve The pulmonary valve is normal in structure. There is no pulmonic valvular regurgitation. Great Vessels The aortic root is normal in size. The IVC was not visualized. Pericardium There is no pericardial effusion. Other Information Technically limited study due to pt refused. Conclusion LVEF is 45-50%. Stage II diastolic dysfunction. Can not exclude wall motion abnormality secondary to suboptimal views obtained The aortic valve is mildly thickened but opens well. There is no pericardial effusion. DICTATED BY: DARSHANA LEWIS MD DATE: 09/22/24 8870 ELECTRONICALLY SIGNED BY: DARSHANA LEWIS MD DATE: 09/23/[address] [address] IMAGING REPORT Signed PATIENT: KRISTIN ARAUZ MR#: [id number] : 1950 SEX: F AGE: 74 LOCATION: [facility] ORDER 0832 STATUS: ADM IN REPORT#: [id number] SERVICE 0830 REASON: Pneumonia ORDERING PHYSICIAN: CROW KENT MD PROCEDURE: CXR1VW - CHEST 1VW EXAM: CR Chest, 1 View. CLINICAL HISTORY: Pneumonia COMPARISON: Radiograph dated September 21, 2024 FINDINGS: Interval improved aeration throughout both lungs. Mild residual bilateral perihilar and right basilar airspace disease. No pleural effusion or pneumothorax. Heart size is stable. Interval decrease pulmonary vascular congestion. IMPRESSION: 1. Improved but persistent bilateral perihilar and right basilar airspace disease, consistent with improving pneumonia. /[place] DICTATED BY: MAGDA PINON Jr., MD DATE: 09/22/241615 ELECTRONICALLY SIGNED BY: MAGDA PINON Jr., MD DATE: 09/22/241615 [place] [address] IMAGING REPORT Signed PATIENT: KRISTIN ARAUZ MR#: [id number] : 1950 SEX: F AGE: 74 LOCATION: [facility] ORDER 0900 STATUS: ADM IN REPORT#: [id number] SERVICE 0859 REASON: AMS ORDERING PHYSICIAN: YAHAIRA FIORE PROCEDURE: HEAD WO - CT HEAD/BRAIN W/O CONTRAST Exam: NONCONTRAST CT BRAIN REASON: AMS. COMPARISON: None. TECHNIQUE: Images are obtained from vertex to the skull base. The exam was performed without IV contrast. FINDINGS: There is normal appearing brain parenchyma. There are no focal mass lesions. There is is no evidence of intracranial hemorrhage or acute stroke. Ventricles and sulci appear normal. Posterior fossa and brainstem structures are unremarkable. Paranasal sinuses and remaining extracranial soft tissues appear normal as well.There is global atrophy with periventricular ischemic white matter changes. IMPRESSION: 1. No acute intracranial process 2. Global atrophy with moderately severe periventricular ischemic white matter changes. CT was performed with one or more following dose reduction techniques: automated exposure control, adjustment of the mA and kv according to patient's size, or use of a iterative reconstruction technique. DICTATED BY: TENA GUERRERO MD DATE: 09/22/24 115 ELECTRONICALLY SIGNED BY: TENA GUERRERO MD DATE: 09/22/[address] [facility] [address] [place], [place] [id number] IMAGING REPORT Signed PATIENT: KRISTIN ARAUZ MR#: [id number] : 1950 SEX: F AGE: 74 LOCATION: H ORDER 18 STATUS: ADM IN REPORT#: [id number] SERVICE 17 REASON: AMS ORDERING PHYSICIAN: BRAEDEN CARPIO MD PROCEDURE: CHES PE - CT CHEST PE PROTOCOL WWO CONT CT CHEST PE PROTOCOL WWO CONT REASON: AMS TECHNIQUE: Thin axial images through the chest were obtained during bolus intravenous administration of 75 ml of Omnipaque 350. Sagittal and coronal reconstruction images were performed. FINDINGS: The main pulmonary arteries and their first and second order branches have normal caliber and enhancement throughout. No intraluminal filling defect is identified. Thoracic aorta is unremarkable. Heart size is within normal limits. There is coronary calcification suggesting of coronary artery disease. No pleural or pericardial effusion is identified. Lungs are clear. No pneumothorax is noted. There is no mediastinal or axillary lymphadenopathy. Patient is status post median sternotomy. Limited evaluation of the upper abdomen is unremarkable. IMPRESSION: No evidence of pulmonary embolism or aortic dissection. Status post median sternotomy Atherosclerotic changes of the thoracic aorta with calcified plaque. Coronary calcification suggesting of coronary artery disease. CT was performed with one or more following dose reduction techniques: automated exposure control, adjustment of the mA and kv according to patient's size, or use of a iterative reconstruction technique. DICTATED BY: TENA GUERRERO MD DATE: 09/24/24 1043 ELECTRONICALLY SIGNED BY: TENA GUERRERO MD DATE: 09/24/[address] [facility] [address] [place], [place] [id number] IMAGING REPORT Signed PATIENT: KRISTIN ARAUZ MR#: [id number] : 1950 SEX: F AGE: 74 LOCATION: [facility] ORDER 1029 STATUS: ADM IN REPORT#: [id number] SERVICE 1027 REASON: Pneumonia ORDERING PHYSICIAN: CAT FISHMAN MD PROCEDURE: CXR1VW - CHEST 1VW CHEST 1VW REASON: Pneumonia COMPARISON: Prior study from 09/22/2024 is available. FINDINGS: Single view of the chest was obtained. Lungs are clear. Patient is status post median sternotomy. Heart size is normal. There is uncoiling atherosclerotic change of thoracic aorta. There is no pulmonary vascular congestion. Mediastinum and bony thorax appear unremarkable. IMPRESSION: 1. No acute cardiac pulmonary process 2. Status post median sternotomy DICTATED BY: TENA GUERRERO MD DATE: 09/23/241215 ELECTRONICALLY SIGNED BY: TENA GUERRERO MD DATE: 09/23/24 [address] [place] [address] IMAGING REPORT Signed PATIENT: KRISTIN ARAUZ MR#: [id number] : 1950 SEX: F AGE: 74 LOCATION: [facility] ORDER 39 STATUS: ADM IN REPORT#: [id number] SERVICE 39 REASON: confusion ORDERING PHYSICIAN: CRISTOBAL MACKENZIE MD PROCEDURE: BRAIN WO - MR BRAIN WO CON EXAM: MR Brain Without IV Contrast. CLINICAL HISTORY: Pain. TECHNIQUE: Multiplanar multi-sequence MRI of the brain. CONTRAST: No. COMPARISON: CT scan of the brain. 09/22/2024. FINDINGS: Moderate to severe discrete and confluent T2-weighted and flair hyperintense signal intensities were identified in the bilateral cerebral white matter. Empty Sella. No evidence of acute cortical infarction, hemorrhage, mass, or mass effect. The ventricular system, sulci, and cisterns appear mildly prominent. No hydrocephalus. No abnormal extra-axial fluid collection is present. The marrow signal within the skull base and calvarium is intact. The paranasal sinuses and mastoid air cells are clear. IMPRESSION: 1. No acute intracranial abnormality or mass. 2. Moderate to severe small vessel chronic ischemic changes in bilateral cerebral white matter. 3. Age-related cerebral atrophy. /[place] DICTATED BY: MAGDA PINON Jr., MD DATE: 09/24/241124 ELECTRONICALLY SIGNED BY: MAGDA PINON Jr., MD DATE: 09/24/241124 [address] [address] IMAGING REPORT Signed PATIENT: KRISTIN ARAUZ MR#: [id number] : 1950 SEX: F AGE: 74 LOCATION: [facility] ORDER 2300 STATUS: ADM IN REPORT#: [id number] SERVICE 0600 REASON: hypoxia ORDERING PHYSICIAN: YAHAIRA FIORE PROCEDURE: CXR1VW - CHEST 1VW CHEST 1VW REASON: hypoxia COMPARISON: Chest radiograph from 09/23/2024 is available. FINDINGS: Single view of the chest was obtained. Lungs are clear. Heart size is normal with median sternotomy.. There is no pulmonary vascular congestion. Mediastinum and bony thorax appear unremarkable. IMPRESSION: 1. Unchanged from prior study with no evidence of airspace consolidation or pulmonary venous congestion 2. Status post median sternotomy. DICTATED BY: TENA GUERRERO MD DATE: 09/24/24 103 ELECTRONICALLY SIGNED BY: TENA GUERRERO MD DATE: 09/24/24 103 Assessment/Plan: ASSESSMENT: AMS secondary to metabolic versus toxic encephalopathy Hypertensive emergency Mild troponin elevation likely in setting of type 2 NV Substance use with positive marijuana Uncontrolled diabetes mellitus type 2. Hypertension Hyperlipidemia History of atrial fibrillation on Eliquis History of smoking Right lower extremity ulcerous wound Obesity BMI 38.5 Possible acute on chronic CHF exacerbation rule out Discharge Instructions: You were admitted for altered mental status and found to have COVID-19 pneumonia, Hypertensive emergency, acute on chronic heart failure, uncontrolled diabetes, and a leg ulcer from bullous pemphigoid. Your conditions how now improved, and your stable for discharge. Continue all prescribed medications for your heart, blood pressure, diabetes, and other conditions exactly as directed. Monitor your blood sugar and blood pressure regularly, and follow your recommended diet. Keep your leg ulcer clean, covered, and cared for exactly as instructed, and continue with wound care visits as scheduled to promote healing. Watch for signs of worsening breathing, chest pain, rapid rickey ght gain from the increased swelling, fever, confusion, or increase redness, swelling, or drainage from your ulcer, and seek medical attention right away if these occur. Please keep all follow up appointments with your primary care provider, research hydraulic engineer, and range management specialist to help manage your conditions and support your recovery. Follow up with your primary care physician within 3-5 days. Home Medications: Active Scripts Doxycycline Hyclate (Doxycycline Hyclate) 100 Mg Tablet, 1 TAB PO BID for 5 Days, #10 TAB 0 Refills Prov:IFTIKHAR URIARTE MD 09/24/24 Torsemide (Torsemide) 20 Mg Tablet, 40 MG PO DAILY for 30 Days, #30 TAB Prov:HALI LANE NP 09/28/23 Lisinopril (Lisinopril) 10 Mg Tablet, 10 MG PO DAILY for 30 Days, #30 TAB Prov:HALI LANE NP 09/28/23 Dronedarone Hydrochloride (Multaq) 400 Mg Tablet, 400 MG PO BID for 30 Days, #60 TAB Prov:HALI LANE NP 09/28/23 Apixaban (Eliquis) 5 Mg Tablet, 5 MG PO BID for 30 Days, #60 TAB Prov:HALI LANE NP 07/16/21 Reported Medications Insuln Asp Prt/Insulin Aspart (Novolog Mix 70-30 Flexpen Syrn) 100 Unit/Ml (70- 30) Insuln.pen, 60 UNITS SQ TIDAC 09/21/23 Metoprolol Succinate (Metoprolol Succinate) 50 Mg Tab.er.24h, 1 TAB PO BID 05/20/23 Atorvastatin Calcium (Atorvastatin Calcium) 80 Mg Tablet, 80 MG PO DAILY, TAB 06/30/22 Tramadol Hcl (Tramadol HCl) 50 Mg Tablet, 50 MG PO DAILY, TAB 07/13/21 Discontinued Reported Medications Dexamethasone (Dexamethasone) 4 Mg Tablet, 1.5 TAB PO BID for 5 Days, #25 TAB 0 Refills 4MG TAB . DOSE (6MG) TAKE 1 AND 1/2 TAB BY MOUTH TWICE DAILY FOR 5 DAYS .. USE HOME MED SUPPLY 09/23/24 Nirmatrelvir/Ritonavir (Paxlovid 300-100 mg Dose Pack) 300 Mg (150 Mg X 2)-100 Mg Tab.ds.pk, 3 EACH PO BID for 5 Days, TAB NEW PRESCIPTION 09/23/24 Benzonatate (Benzonatate) 200 Mg Capsule, 1 CAP PO TIDP PRN for COUGH 09/21/23 Loratadine (Claritin) 10 Mg Tab, 1 TAB PO DAILY 04/28/22 Nitroglycerin (Nitroglycerin) 0.4 Mg Tab.subl, 0.4 MG SL Q5MIN X3 FOR CP PRN for CHESTPAIN, TAB.SL 07/13/21 Discontinued Scripts Empagliflozin (Jardiance) 10 Mg Tablet, 10 MG PO DAILY for 30 Days, #30 TAB Prov:HALI LANE NP 09/29/23 New Medications: Doxycycline Hyclate (Doxycycline Hyclate) 100 Mg Tablet 1 TAB PO BID for 5 Days, #10 TAB 0 Refills Continued Medications: Apixaban (Eliquis) 5 Mg Tablet 5 MG PO BID for 30 Days, #60 TAB Atorvastatin Calcium (Atorvastatin Calcium) 80 Mg Tablet 80 MG PO DAILY, TAB Dronedarone Hydrochloride (Multaq) 400 Mg Tablet 400 MG PO BID for 30 Days, #60 TAB Insuln Asp Prt/Insulin Aspart (Novolog Mix 70-30 Flexpen Syrn) 100 Unit/Ml (70- 30) Insuln.pen 60 UNITS SQ TIDAC Lisinopril (Lisinopril) 10 Mg Tablet 10 MG PO DAILY for 30 Days, #30 TAB Metoprolol Succinate (Metoprolol Succinate) 50 Mg Tab.er.24h 1 TAB PO BID Torsemide (Torsemide) 20 Mg Tablet 40 MG PO DAILY for 30 Days, #30 TAB Tramadol Hcl (Tramadol HCl) 50 Mg Tablet 50 MG PO DAILY, TAB Discontinued Medications: Dexamethasone (Dexamethasone) 4 Mg Tablet 1.5 TAB PO BID for 5 Days, #25 TAB 0 Refills 4MG TAB . DOSE (6MG) TAKE 1 AND 1/2 TAB BY MOUTH TWICE DAILY FOR 5 DAYS .. USE HOME MED SUPPLY Nirmatrelvir/Ritonavir (Paxlovid 300-100 mg Dose Pack) 300 Mg (150 Mg X 2)-100 Mg Tab.ds.pk 3 EACH PO BID for 5 Days, TAB NEW PRESCIPTION Time spent arranging discharge: 1-30 minutes ATTESTATION BY PHYSICIAN I have seen and examined the patient. I reviewed the documentation, medical decision making, and treatment plan as noted by the resident provider above. I agree with the findings and plan of care. Mandeep Roa MD, HEMA MD Sep 24, 2024 14:11
--- NOTE | 2024-09-24 15:11 | NUR ---
KIMBALL DISCONTINUED AT THIS TIME.
[2024-09-24] MEDS ORDERED: DOXY100T2 PO (15:23)
--- NOTE | 2024-09-24 16:15 | NUR ---
PT VOIDED PRIOR TO DISCHARGE.
== END 2024-09-24 16:15 | disposition home or self-care (01) | DRG 91 ==
LOC: EDH 15:05 → EDHIP 17:09 → 2BH 20:52 → 3CH 09-23 12:15
PROVIDERS: ADMIT Internal Medicine; ATTEND Internal Medicine
DX: G92.8 Other toxic encephalopathy (principal); I21.A1 Myocardial infarction type 2; J12.82 Pneumonia due to coronavirus disease 2019; U07.1 COVID-19; E87.20 Acidosis, unspecified; I16.1 Hypertensive emergency; L12.0 Bullous pemphigoid; L97.919 Non-pressure chronic ulcer of unspecified part of right lower leg with unspecified severity; D75.1 Secondary polycythemia; E11.65 Type 2 diabetes mellitus with hyperglycemia; E66.9 Obesity, unspecified; I11.0 Hypertensive heart disease with heart failure; I48.91 Unspecified atrial fibrillation; E78.00 Pure hypercholesterolemia, unspecified; F12.10 Cannabis abuse, uncomplicated; T50.995A Adverse effect of other drugs, medicaments and biological substances, initial encounter; I50.9 Heart failure, unspecified; K80.20 Calculus of gallbladder without cholecystitis without obstruction; Z68.38 Body mass index [BMI] 38.0-38.9, adult; Z79.01 Long term (current) use of anticoagulants; Z87.891 Personal history of nicotine dependence; Z91.148 Patient's other noncompliance with medication regimen for other reason; Z95.1 Presence of aortocoronary bypass graft; Z79.4 Long term (current) use of insulin; Z68.39 Body mass index [BMI] 39.0-39.9, adult; Z82.49 Family history of ischemic heart disease and other diseases of the circulatory system; Z83.3 Family history of diabetes mellitus; Z79.899 Other long term (current) drug therapy; Y92.89 Other specified places as the place of occurrence of the external cause
CPT/HCPCS: 36415; 36600; 70450; 70551; 71045; 71270; 74176; 80048; 80053; 80305; 81001; 82010; 82140; 82435; 82803; 82947; 82948; 83036; 83605; 83735; 83880; 84100; 84132; 84145; 84295; 84443; 84484; 85018; 85025; 85027; 85610; 85730; 86140; 87040; 87635; 87804; 87880; 93005; 93306; 96374; 96375; 99291; G0378; J0360; J0696; J1100; J1650; J1815; J1938; J2405; J3360; J3475; J3480; J3490; J7050; J8540; Q9967